=== PATIENT | female | born 1945 | race Caucasian/White ===

== ENCOUNTER 2017-07-09 13:18 | Inpatient (IN) ==
[2017-07-09 13:54] LABS: Bilirubin,Urine Negative (Negative); Blood,Urine Negative (Negative); Clarity,Urine Clear (Clear); Color,Urine Yellow (Yellow); Glucose,Urine (UA) Normal (Normal); Ketones,Urine Negative (Negative); Leukocyte Esterase,Urine Small (Negative); Nitrite,Urine Negative (Negative); Protein,Urine Negative (Neg-Trace); Specific Gravity,Urine 1.014 (1.010-1.025); Urobilinogen,Urine Normal (Normal)
[2017-07-09 13:56] LABS: Bacteria,Urine Many per hpf (None-Few); Hyaline Casts,Urine None Seen per lpf (None-Few); RBC,Urine 0-3 per hpf (0-3); Squamous Epithelial Cell,Urine Moderate per lpf (None-Few)
[2017-07-09 14:02] LABS: Basophils # 0.1 K/mcL (0.0-0.2); Basophils % 0.7 %; Eosinophils # 0.1 K/mcL (0.0-0.6); Eosinophils % 1.1 %; Hematocrit 44.1 % (35.3-44.9); Immature Granulocytes % 0.4 % (0-4); Lymphocytes % 21.6 %; Mean Corpuscular Hemoglobin 28.6 pg (28.0-33.3); Mean Corpuscular Volume 84.2 fL (83.0-100.0); Mean Platelet Volume 10.3 fL (9.4-12.4); Monocytes # 0.6 K/mcL (0.0-1.3); Monocytes % 6.5 %; Neutrophils # 6.4 K/mcL (1.6-8.9); Platelet Count 296 K/mcL (140-400); Red Blood Count 5.24 M/mcL (3.82-4.97); Red Cell Distribution Width 13.7 % (11.5-14.5); Segmented Neutrophils % 69.7 %
--- NOTE | 2017-07-09 14:02 | Emergency Department Note ---
Disposition Clinical Impression: Suicidal ideation Disposition: Admitted As Inpatient Condition: Good General Adult HPI - General Chief complaint: ED Psychiatric Symptoms Stated complaint: SI Time Seen by Provider: 07/09/17 13:32 Source: patient Limitations: no limitations Nursing Notes Reviewed: Yes Vital Signs Reviewed: Yes - History of Present Illness Pain Scale: 0 - Related Data Home Medications Medication Instructions Recorded Confirmed Diltiazem CD (24hr) [Cardizem CD] 240 mg PO DAILY 07/09/17 07/09/17 Lisinopril [Zestril] 10 mg PO DAILY 07/09/17 07/09/17 Triamterene/HCTZ 37.5/25mg 1 tab PO DAILY 07/09/17 07/09/17 [Dyazide] metFORMIN [Glucophage] 500 mg PO BID 07/09/17 07/09/17 Allergies Allergy/AdvReac Type Severity Reaction Status Date / Time ciprofloxacin [From Cipro] Allergy Anaphylaxis Verified 07/09/17 13:22 Past Medical History - Past Medical History Medical history: Reports: diabetes, hypertension Psychiatric history: Reports: depression, prior suicide attempt - Social History Smoking Status: Never smoker Alcohol use: Reports: none Drug use: Reports: none Physical Exam - General Limitations: no limitations General appearance: alert Course Vital Signs Temperature 98.3 F 07/09/17 13:19 Pulse Rate 86 07/09/17 13:19 Respiratory Rate 18 07/09/17 13:19 Blood Pressure 144/85 07/09/17 13:19 O2 Sat by Pulse Oximetry 97 07/09/17 13:19 Temperature 98.3 F 07/09/17 13:35 Pulse Rate 86 07/09/17 13:35 Respiratory Rate 18 07/09/17 13:35 Blood Pressure 144/85 07/09/17 13:35 O2 Sat by Pulse Oximetry 97 07/09/17 13:35 Oxygen Delivery Oxygen Delivery Room Air Medical Decision Making - MDM Narrative Medical decision making narrative: This documentation is done with the assistance of Dragon dictation. Despite efforts made to ensure accuracy, there may be inaccuracies in station baggage agent or spelling and typographical errors. Patient presents today very depressed flat effect feeling she might try to harm herself but does not have a plan. Set she has had depression in the past. Her primary care physician sent her to the emergency department. She is made a no AMA status, [address], labs are done for psychiatry and will have them evaluate once his labs are back. She is in agreement with this plan. 1500 hrs.: Spoke to [facility]A to evaluate the patient. Patient's labs are back. 1600 hrs.: 1A has finished their evaluation they are going to try to admit her here. 1610 hrs.: 1A excepts the patient for evaluation. Waiting on bed. - Lab Data Result diagrams: 07/09/17 13:53 07/09/17 13:53 Lab Results 07/09/17 07/09/17 07/09/17 Range/Units 13:36 13:36 13:53 WBC 9.2 (4.3-11.1) K/mcL RBC 5.24 H (3.82-4.97) M/mcL Hgb 15.0 (11.5-15.4) g/dL Hct 44.1 (35.3-44.9) % MCV 84.2 (83.0-100.0) fL MCH 28.6 (28.0-33.3) pg MCHC 34.0 (31.6-35.5) g/dL RDW 13.7 (11.5-14.5) % Plt Count 296 (140-400) K/mcL MPV 10.3 (9.4-12.4) fL Immature Gran % 0.4 (0-4) % Seg Neutrophils % 69.7 % Lymphocytes % 21.6 % Monocytes % 6.5 % Eosinophils % 1.1 % Basophils % 0.7 % Neutrophils # 6.4 (1.6-8.9) K/mcL Lymphocytes # 2.0 (0.6-4.6) K/mcL Monocytes # 0.6 (0.0-1.3) K/mcL Eosinophils # 0.1 (0.0-0.6) K/mcL Basophils # 0.1 (0.0-0.2) K/mcL Sodium (136-145) mEq/L Potassium (3.5-5.1) mEq/L Chloride (98-107) mEq/L Carbon Dioxide (23-29) mEq/L BUN (8-23) mg/dL Creatinine (0.60-1.20) mg/dL Est GFR ( Amer) (> 60) Est GFR (Non-Af Amer) (> 60) BUN/Creatinine Ratio (6-26) Glucose (70-105) mg/dL POC Glucose (70-99) mg/dL Calculated Osmolality (280-300) Calcium (8.6-10.3) mg/dL TSH (0.340-5.600) mcIU/mL Urine Color Yellow (Yellow) Urine Clarity Clear (Clear) Urine pH 7.0 (5.0-8.0) pH Units Ur Specific [place] 1.014 (1.010-1.025) Urine Protein Negative (Neg-Trace) mg/dL Urine Glucose (UA) Normal (Normal) mg/dL Urine Ketones Negative (Negative) mg/dL Urine Blood Negative (Negative) Urine Nitrite Negative (Negative) Urine Bilirubin Negative (Negative) Urine Urobilinogen Normal (Normal) mg/dL Ur Leukocyte Esterase Small H (Negative) Urine Microscopic RBC 0-3 (0-3) per hpf Urine Microscopic WBC 3-5 H (0-3) per hpf Ur Squamous Epith Cells Moderate H (None-Few) per lpf Urine Bacteria Many H (None-Few) per hpf Hyaline Casts None Seen (None-Few) per lpf Salicylates (15.0-30.0) mg/dL Urine Opiates Screen Negative (Mvxoxu=826) ng/mL Acetaminophen (10-20) mcg/mL Ur Barbiturates Screen Negative (Uyczgb=693) ng/mL Ur Phencyclidine Scrn Negative (Cutoff=25) ng/mL Ur Amphetamines Screen Negative (Uopnoz=3270) ng/mL U Benzodiazepines Scrn Negative (Rclhzk=620) ng/mL Urine Cocaine Screen Negative (Cutoff= 300) ng/mL U Marijuana (THC) Screen Negative (Cutoff = 50) ng/mL Ethyl Alcohol (Less than 10) mg/dL 07/09/17 07/09/17 Range/Units 13:53 15:25 WBC (4.3-11.1) K/mcL RBC (3.82-4.97) M/mcL Hgb (11.5-15.4) g/dL Hct (35.3-44.9) % MCV (83.0-100.0) fL MCH (28.0-33.3) pg MCHC (31.6-35.5) g/dL RDW (11.5-14.5) % Plt Count (140-400) K/mcL MPV (9.4-12.4) fL Immature Gran % (0-4) % Seg Neutrophils % % Lymphocytes % % Monocytes % % Eosinophils % % Basophils % % Neutrophils # (1.6-8.9) K/mcL Lymphocytes # (0.6-4.6) K/mcL Monocytes # (0.0-1.3) K/mcL Eosinophils # (0.0-0.6) K/mcL Basophils # (0.0-0.2) K/mcL Sodium 137 (136-145) mEq/L Potassium 3.8 (3.5-5.1) mEq/L Chloride 101 (98-107) mEq/L Carbon Dioxide 25 (23-29) mEq/L BUN 20 (8-23) mg/dL Creatinine 0.73 (0.60-1.20) mg/dL Est GFR ( Amer) > 60 (> 60) Est GFR (Non-Af Amer) > 60 (> 60) BUN/Creatinine Ratio 27 H (6-26) Glucose 120 H (70-105) mg/dL POC Glucose 103 H (70-99) mg/dL Calculated Osmolality 288 (280-300) Calcium 10.1 (8.6-10.3) mg/dL TSH 1.234 (0.340-5.600) mcIU/mL Urine Color (Yellow) Urine Clarity (Clear) Urine pH (5.0-8.0) pH Units Ur Specific [place] (1.010-1.025) Urine Protein (Neg-Trace) mg/dL Urine Glucose (UA) (Normal) mg/dL Urine Ketones (Negative) mg/dL Urine Blood (Negative) Urine Nitrite (Negative) Urine Bilirubin (Negative) Urine Urobilinogen (Normal) mg/dL Ur Leukocyte Esterase (Negative) Urine Microscopic RBC (0-3) per hpf Urine Microscopic WBC (0-3) per hpf Ur Squamous Epith Cells (None-Few) per lpf Urine Bacteria (None-Few) per hpf Hyaline Casts (None-Few) per lpf Salicylates < 2.5 L (15.0-30.0) mg/dL Urine Opiates Screen (Yrlyab=812) ng/mL Acetaminophen < 10 L (10-20) mcg/mL Ur Barbiturates Screen (Gqowfd=182) ng/mL Ur Phencyclidine Scrn (Cutoff=25) ng/mL Ur Amphetamines Screen (Whgstk=7583) ng/mL U Benzodiazepines Scrn (Lcckey=365) ng/mL Urine Cocaine Screen (Cutoff= 300) ng/mL U Marijuana (THC) Screen (Cutoff = 50) ng/mL Ethyl Alcohol < 10 (Less than 10) mg/dL Attestation Statement - Attestation Attestation: I examined this patient and my medical decision-making was reviewed with the Resident Physician. I agree with the documented findings, disposition and treatment plan as described except to the extent set forth below. Patient seen and evaluated by Dr. Bran and myself, I agree with his evaluation and treatment plan, supervised care the patient's stay.
[2017-07-09 14:04] LABS: Amphetamine Screen,Urine Negative ng/mL (Cutoff=1000); Barbiturate Screen,Urine Negative ng/mL (Cutoff=200); Benzodiazepines Screen,Urine Negative ng/mL (Cutoff=200); Cannabinoid Screen,Urine Negative ng/mL (Cutoff = 50); Cocaine Screen,Urine Negative ng/mL (Cutoff= 300); Opiate Screen,Urine Negative ng/mL (Cutoff=300); Phencyclidine Screen,Urine Negative ng/mL (Cutoff=25)
--- NOTE | 2017-07-09 14:10 | Emergency Department Note ---
Disposition Clinical Impression: Suicidal ideation Disposition: Admitted As Inpatient Condition: Good Referrals: NONE,PCP [Primary Care Provider] - Forms: ED Satisfaction Letter Time of Disposition: 16:18 Psych HPI - General Chief Complaint: ED Psychiatric Symptoms Stated Complaint: SI Time Seen by Provider: 07/09/17 13:32 Source: patient Mode of arrival: ambulatory Limitations: no limitations Nursing Notes Reviewed: Yes Vital Signs Reviewed: Yes - History of Present Illness HPI Narrative: Patient presents to the ED with suicidal ideation. SHe states that she has been depressed for the last few weeks. She does have a plan to cut her wrists and let herself "bleed out". Denies any pain currently. Does currently feel suicidal - Related Data Allergies Allergy/AdvReac Type Severity Reaction Status Date / Time ciprofloxacin [From Cipro] Allergy Anaphylaxis Verified 07/09/17 13:22 Review of Systems: As reviewed in the HPI. All other systems reviewed are negative or normal. Past Medical History - Past Medical History Attestation: Yes The following information was validated with the patient. Source: patient Medical history: Reports: diabetes, hypertension Psychiatric history: Reports: depression, prior suicide attempt - Social History Smoking Status: Never smoker Alcohol use: Reports: none Drug use: Reports: none Physical Exam - General Limitations: no limitations General appearance: alert, in no apparent distress - Head Head exam: atraumatic, normocephalic, normal inspection - Eye Eye exam: Present: normal appearance, PERRL, EOMI - ENT ENT exam: normal exam, normal oropharynx, mucous membranes moist - Neck Neck exam: Present: normal inspection, full ROM, trachea midline - Chest Chest inspection: Present: normal inspection, symmetric chest wall rise - Respiratory Respiratory exam: Present: normal lung sounds bilaterally - Cardiovascular Cardiovascular exam: Present: regular rate, normal rhythm, normal heart sounds - Abdominal Exam Abdominal exam: Present: soft, Non-Tender. Absent: tenderness, distention, guarding, rebound, rigidity - Extremities Exam Extremities exam: Present: normal inspection, full ROM. Absent: tenderness, pedal edema - Neurological Exam Neurological exam: Present: alert, oriented X3 - Psychiatric Psychiatric exam: Present: depressed, flat affect - Skin Skin exam: Present: warm, dry, intact, normal color Course Course Narrative: 1A clearance with likely admission - Reevaluation(s) Reevaluation #1: 1A to admit Vital Signs Temperature 98.3 F 07/09/17 13:19 Pulse Rate 86 07/09/17 13:19 Respiratory Rate 18 07/09/17 13:19 Blood Pressure 144/85 07/09/17 13:19 O2 Sat by Pulse Oximetry 97 07/09/17 13:19 Temperature 98.3 F 07/09/17 13:35 Pulse Rate 86 07/09/17 13:35 Respiratory Rate 18 07/09/17 13:35 Blood Pressure 144/85 07/09/17 13:35 O2 Sat by Pulse Oximetry 97 07/09/17 13:35 Oxygen Delivery Oxygen Delivery Room Air Psych - Lab Data Result diagrams: 07/09/17 13:53 07/09/17 13:53 Lab Results 07/09/17 07/09/17 07/09/17 Range/Units 13:36 13:36 13:53 WBC 9.2 (4.3-11.1) K/mcL RBC 5.24 H (3.82-4.97) M/mcL Hgb 15.0 (11.5-15.4) g/dL Hct 44.1 (35.3-44.9) % MCV 84.2 (83.0-100.0) fL MCH 28.6 (28.0-33.3) pg MCHC 34.0 (31.6-35.5) g/dL RDW 13.7 (11.5-14.5) % Plt Count 296 (140-400) K/mcL MPV 10.3 (9.4-12.4) fL Immature Gran % 0.4 (0-4) % Seg Neutrophils % 69.7 % Lymphocytes % 21.6 % Monocytes % 6.5 % Eosinophils % 1.1 % Basophils % 0.7 % Neutrophils # 6.4 (1.6-8.9) K/mcL Lymphocytes # 2.0 (0.6-4.6) K/mcL Monocytes # 0.6 (0.0-1.3) K/mcL Eosinophils # 0.1 (0.0-0.6) K/mcL Basophils # 0.1 (0.0-0.2) K/mcL Sodium (136-145) mEq/L Potassium (3.5-5.1) mEq/L Chloride (98-107) mEq/L Carbon Dioxide (23-29) mEq/L BUN (8-23) mg/dL Creatinine (0.60-1.20) mg/dL Est GFR ( Amer) (> 60) Est GFR (Non-Af Amer) (> 60) BUN/Creatinine Ratio (6-26) Glucose (70-105) mg/dL Calculated Osmolality (280-300) Calcium (8.6-10.3) mg/dL TSH (0.340-5.600) mcIU/mL Urine Color Yellow (Yellow) Urine Clarity Clear (Clear) Urine pH 7.0 (5.0-8.0) pH Units Ur Specific [place] 1.014 (1.010-1.025) Urine Protein Negative (Neg-Trace) mg/dL Urine Glucose (UA) Normal (Normal) mg/dL Urine Ketones Negative (Negative) mg/dL Urine Blood Negative (Negative) Urine Nitrite Negative (Negative) Urine Bilirubin Negative (Negative) Urine Urobilinogen Normal (Normal) mg/dL Ur Leukocyte Esterase Small H (Negative) Urine Microscopic RBC 0-3 (0-3) per hpf Urine Microscopic WBC 3-5 H (0-3) per hpf Ur Squamous Epith Cells Moderate H (None-Few) per lpf Urine Bacteria Many H (None-Few) per hpf Hyaline Casts None Seen (None-Few) per lpf Salicylates (15.0-30.0) mg/dL Urine Opiates Screen Negative (Lejfgg=736) ng/mL Acetaminophen (10-20) mcg/mL Ur Barbiturates Screen Negative (Kopbul=694) ng/mL Ur Phencyclidine Scrn Negative (Cutoff=25) ng/mL Ur Amphetamines Screen Negative (Hiasef=9700) ng/mL U Benzodiazepines Scrn Negative (Weovxs=186) ng/mL Urine Cocaine Screen Negative (Cutoff= 300) ng/mL U Marijuana (THC) Screen Negative (Cutoff = 50) ng/mL Ethyl Alcohol (Less than 10) mg/dL 07/09/17 Range/Units 13:53 WBC (4.3-11.1) K/mcL RBC (3.82-4.97) M/mcL Hgb (11.5-15.4) g/dL Hct (35.3-44.9) % MCV (83.0-100.0) fL MCH (28.0-33.3) pg MCHC (31.6-35.5) g/dL RDW (11.5-14.5) % Plt Count (140-400) K/mcL MPV (9.4-12.4) fL Immature Gran % (0-4) % Seg Neutrophils % % Lymphocytes % % Monocytes % % Eosinophils % % Basophils % % Neutrophils # (1.6-8.9) K/mcL Lymphocytes # (0.6-4.6) K/mcL Monocytes # (0.0-1.3) K/mcL Eosinophils # (0.0-0.6) K/mcL Basophils # (0.0-0.2) K/mcL Sodium 137 (136-145) mEq/L Potassium 3.8 (3.5-5.1) mEq/L Chloride 101 (98-107) mEq/L Carbon Dioxide 25 (23-29) mEq/L BUN 20 (8-23) mg/dL Creatinine 0.73 (0.60-1.20) mg/dL Est GFR ( Amer) > 60 (> 60) Est GFR (Non-Af Amer) > 60 (> 60) BUN/Creatinine Ratio 27 H (6-26) Glucose 120 H (70-105) mg/dL Calculated Osmolality 288 (280-300) Calcium 10.1 (8.6-10.3) mg/dL TSH 1.234 (0.340-5.600) mcIU/mL Urine Color (Yellow) Urine Clarity (Clear) Urine pH (5.0-8.0) pH Units Ur Specific [place] (1.010-1.025) Urine Protein (Neg-Trace) mg/dL Urine Glucose (UA) (Normal) mg/dL Urine Ketones (Negative) mg/dL Urine Blood (Negative) Urine Nitrite (Negative) Urine Bilirubin (Negative) Urine Urobilinogen (Normal) mg/dL Ur Leukocyte Esterase (Negative) Urine Microscopic RBC (0-3) per hpf Urine Microscopic WBC (0-3) per hpf Ur Squamous Epith Cells (None-Few) per lpf Urine Bacteria (None-Few) per hpf Hyaline Casts (None-Few) per lpf Salicylates < 2.5 L (15.0-30.0) mg/dL Urine Opiates Screen (Sfwizq=660) ng/mL Acetaminophen < 10 L (10-20) mcg/mL Ur Barbiturates Screen (Ocwfxf=460) ng/mL Ur Phencyclidine Scrn (Cutoff=25) ng/mL Ur Amphetamines Screen (Fcphrt=7685) ng/mL U Benzodiazepines Scrn (Hxifca=659) ng/mL Urine Cocaine Screen (Cutoff= 300) ng/mL U Marijuana (THC) Screen (Cutoff = 50) ng/mL Ethyl Alcohol < 10 (Less than 10) mg/dL Psychiatric Medical Clearance - Medical Clearance Checklist Medical History: No Social History Section defined Current Vitals: Last Vital Signs Temp 98.3 F 07/09/17 13:35 Pulse 86 07/09/17 13:35 Resp 18 07/09/17 13:35 BP 144/85 07/09/17 13:35 Pulse Ox 97 07/09/17 13:35 Psychiatric Lab Panel: Drug Levels and Toxicity 07/09/17 07/09/17 13:36 13:53 Urine Opiates Screen Negative Acetaminophen < 10 L Ur Barbiturates Screen Negative Ur Phencyclidine Scrn Negative Ur Amphetamines Screen Negative U Benzodiazepines Scrn Negative Urine Cocaine Screen Negative U Marijuana (THC) Screen Negative Ethyl Alcohol < 10 Abnormal Labs: Abnormal lab results RBC 5.24 M/mcL (3.82-4.97) H 07/09/17 13:53 BUN/Creatinine Ratio 27 (6-26) H 07/09/17 13:53 Glucose 120 mg/dL (70-105) H 07/09/17 13:53 Ur Leukocyte Esterase Small (Negative) H 07/09/17 13:36 Urine Microscopic WBC 3-5 per hpf (0-3) H 07/09/17 13:36 Ur Squamous Epith Cells Moderate per lpf (None-Few) H 07/09/17 13:36 Urine Bacteria Many per hpf (None-Few) H 07/09/17 13:36 Salicylates < 2.5 mg/dL (15.0-30.0) L 07/09/17 13:53 Acetaminophen < 10 mcg/mL (10-20) L 07/09/17 13:53 Statement of Medical Clearance: I have evaluated the patient, reviewed diagnostic information, and certify that the patient's medical condition is sufficiently stable that transfer to the psychiatric unit does not pose a significant risk of deterioration.
[2017-07-09 14:42] LABS: Thyroid Stimulating Hormone 1.234 mcIU/mL (0.340-5.600)
[2017-07-09 14:43] LABS: BUN/Creatinine Ratio 27 (6-26); Blood Urea Nitrogen 20 mg/dL (8-23); Calcium 10.1 mg/dL (8.6-10.3); Carbon Dioxide 25 mEq/L (23-29); Chloride 101 mEq/L (98-107); Glucose 120 mg/dL (70-105); Osmolality,Calculated 288 (280-300); Potassium 3.8 mEq/L (3.5-5.1); Sodium 137 mEq/L (136-145); eGFR For African Americans > 60 (> 60); eGFR For Non-African Americans > 60 (> 60)
[2017-07-09 15:03] LABS: Acetaminophen < 10 mcg/mL (10-20)
[2017-07-09 15:06] LABS: Ethanol < 10 mg/dL (Less than 10); Salicylate < 2.5 mg/dL (15.0-30.0)
[2017-07-09] MEDS ORDERED: traZODone 50 MG TABLET PO PRN (17:31)
[2017-07-09] MEDS ORDERED: *HR* LORazepam 2 MG/ML VIAL IM PRN (17:31)
[2017-07-09] MEDS ORDERED: Haloperidol Lactate 5 MG/ML VIAL IM PRN (17:31)
[2017-07-09] MEDS ORDERED: *HR* LORazepam 1 MG TABLET PO PRN (17:31)
[2017-07-09] MEDS ORDERED: Mag Hydrox/Al Hydrox/Simeth 30 ML UDC PO PRN (17:31)
[2017-07-09] MEDS ORDERED: MOM Conc 10 ML UD.LIQ PO PRN (17:31)
[2017-07-09] MEDS: *HR* Metformin 500 MG TABLET PO SCH (21:16)
[2017-07-10] MEDS: *HR* Metformin 500 MG TABLET PO SCH ×2 (08:42→21:04)
[2017-07-10] MEDS: Diltiazem CD (24hr) 240 MG CAPSULE PO SCH (08:42)
--- NOTE | 2017-07-10 11:25 | Psychiatry History & Physical ---
Date of Encounter: 07/10/17 Time of Encounter: 10:50 History of Present Illness Patient Stated Chief Complaint: i am very depress Medicare Admission Attestation: For traditional Medicare patients the provided hospital inpatient services are reasonable and necessary and in the case of services not specified as inpatient -only under 42 CFR 419.22 (n), that they are appropriately provided as inpatient services in accordance 42 CFR 412.3. For Critical Access Hospital the patient may reasonably be expected to be discharged or transferred to a hospital within 96 hours after admission to the Critical Access Hospital. Admitted From: Emergency Dept Plans for Post Hospital Care: Home History of Present Illness: Ms. Sánchez is a 71 year old female evaluated today ,Patient presents to the ED with suicidal ideation. SHe states that she has been depressed for the last few weeks. She does have a plan to cut her wrists and let herself "bleed out". Denies any pain currently. Does currently feel suicidal. Patient states her 27 year old grandson lives with her ,, has started getting depress for last 4-5 weeks , no new stress and no change I do not know why its like it just came and boom it hit me, having thoughts of hurting myself by cutting my self and that scared me and I came here. 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 She has 5 month old grandson and she was taking care of him 6 days a week and last week she told her son she can not as she is unable to. She is very dysphoric at present and down and psychomotor retardation , she looks younger than her age and pleasant , cooperative. still has suicidal thoughts not as strong as yesterday but still has, denies homicidal ideation , she has generalized anxiety and no panic attacks , she worries a lot and sleep increased was in bed for 13 hrs a day, and overeating which she knows bad for her diabetes ,positive anhedonia and psychomotor retardation. Medical h/o HTN,DM,Mitral valve prolapse , no chest pain or any other issues at present. Family h/o none pATIENT AT PRESENT is significantly depressed and suicidal , plan to cut self , needs inpatient for safety and stabilization for her depression , at present danger to self and is willing for treatment. Will start antidepressant Lexapro 10 mg am and continue close monitoring. will start diabetic diet and monitor her blood sugar. Past Med Surg Social Fam HX - Past Medical History Medical history: diabetes, hypertension - Past Psychiatric History Psychiatric history: Reports: anxiety, depression, previous psychiatric hospitalization Family psychiatric history: No Family History of Suicide: None - Past Surgical History Surgical History: cholecystectomy - Social History Smoking Status: Never smoker Alcohol use: none Drug use: none Occupational status: retired Current living situation: Home, With Family Activity Level: Independent ambulation Recent Out of Country Travel Within the Last 8 Weeks: No Exposure or Possible Exposure to Illness During Travel: No Medications & Allergies Diltiazem CD (24hr) [Cardizem CD] 240 mg PO DAILY 07/09/17 [History] Lisinopril [Zestril] 10 mg PO DAILY 07/09/17 [History] Triamterene/HCTZ 37.5/25mg [Dyazide] 1 tab PO DAILY 07/09/17 [History] metFORMIN [Glucophage] 500 mg PO BID 07/09/17 [History] 3 Allergy/AdvReac Type Severity Reaction Status Date / Time ciprofloxacin [From Cipro] Allergy Anaphylaxis Verified 07/09/17 13:22 Review of Systems Constitutional: Denies: fever, chills, weakness, weight change Eyes: Denies: eye pain, vision change Ears, Nose, Throat: Denies: ear pain, throat pain, dental pain, hearing loss, congestion Cardiovascular: Denies: chest pain, palpitations, dyspnea on exertion Respiratory: Denies: cough, dyspnea, wheezes Gastrointestinal: Denies: abdominal pain, nausea, vomiting, diarrhea, constipation Genitourinary female: Denies: urgency, dysuria, frequency, abnormal menses, dyspareunia Musculoskeletal: Denies: joint swelling, joint pain Integumentary: Denies: rash, lesions, pruritus Neurological: Denies: headache, weakness, numbness, memory loss Psychiatric: Reports: depression, anxiety, abnormal sleep pattern, suicidal ideation, change in appetite, hopelessness Endocrine: Denies: fatigue, heat or cold intolerance Hematologic/Lymphatic: Denies: easy bruising, lymphadenopathy Allergic/Immunologic: Denies: urticaria, itchy eyes Exam - HEENT Head exam IM: Present: atraumatic Eye exam IM: Present: EOMI, normal appearance, PERRL ENT exam IM: Present: normal exam - Neurological Neurological exam: Present: CN II-XII intact - Respiratory Respiratory exam IM: Present: CTAB - GI/Abdominal GI/Abdominal exam IM: Present: normal bowel sounds, soft. Absent: tenderness - Extremities Extremities exam IM: Present: full ROM - Skin Skin exam IM: Present: abrasion - Constitutional Vitals: Temp Pulse Resp BP Pulse Ox 98.2 F 76 16 142/87 97 07/10/17 08:50 07/10/17 08:50 07/10/17 08:50 07/10/17 08:50 07/09/17 13:35 General appearance: age & developmentally appropriate, well-groomed, well- nourished - Musculoskeletal Gait: slow Station: relaxed Strength & Tone: normal for patient - Psychiatric Patient Orientation: Yes Person, Yes Time, Yes Place Level of alertness: Alert Behavior: cooperative, anxious, withdrawn Psychomotor activity: Slowed Mood Description: Depressed, Anxious Affect description: dysphoric Speech Volume: Soft/Quiet Speech pattern: slowed Language & Vocabulary: consistent with education Thought Process: Linear, Goal Oriented Thought Content: Yes Suicidal ideation, Yes Guilt Perceptual Disturbances: No Auditory hallucinations, No Visual hallucinations Attention Span Ability: Capable of Focused Attention Memory Description: Grossly Intact Patient Reliability: Reliable Historian Intelligence Estimate: Average Judgment: Limited Insight: Partial Results - Labs Labs: Laboratory Last Values WBC 9.2 K/mcL (4.3-11.1) 07/09/17 13:53 RBC 5.24 M/mcL (3.82-4.97) H 07/09/17 13:53 Hgb 15.0 g/dL (11.5-15.4) 07/09/17 13:53 Hct 44.1 % (35.3-44.9) 07/09/17 13:53 MCV 84.2 fL (83.0-100.0) 07/09/17 13:53 MCH 28.6 pg (28.0-33.3) 07/09/17 13:53 MCHC 34.0 g/dL (31.6-35.5) 07/09/17 13:53 RDW 13.7 % (11.5-14.5) 07/09/17 13:53 Plt Count 296 K/mcL (140-400) 07/09/17 13:53 MPV 10.3 fL (9.4-12.4) 07/09/17 13:53 Immature Gran % 0.4 % (0-4) 07/09/17 13:53 Seg Neutrophils % 69.7 % 07/09/17 13:53 Lymphocytes % 21.6 % 07/09/17 13:53 Monocytes % 6.5 % 07/09/17 13:53 Eosinophils % 1.1 % 07/09/17 13:53 Basophils % 0.7 % 07/09/17 13:53 Neutrophils # 6.4 K/mcL (1.6-8.9) 07/09/17 13:53 Lymphocytes # 2.0 K/mcL (0.6-4.6) 07/09/17 13:53 Monocytes # 0.6 K/mcL (0.0-1.3) 07/09/17 13:53 Eosinophils # 0.1 K/mcL (0.0-0.6) 07/09/17 13:53 Basophils # 0.1 K/mcL (0.0-0.2) 07/09/17 13:53 Sodium 137 mEq/L (136-145) 07/09/17 13:53 Potassium 3.8 mEq/L (3.5-5.1) 07/09/17 13:53 Chloride 101 mEq/L (98-107) 07/09/17 13:53 Carbon Dioxide 25 mEq/L (23-29) 07/09/17 13:53 BUN 20 mg/dL (8-23) 07/09/17 13:53 Creatinine 0.73 mg/dL (0.60-1.20) 07/09/17 13:53 Est GFR ( Amer) > 60 (> 60) 07/09/17 13:53 Est GFR (Non-Af Amer) > 60 (> 60) 07/09/17 13:53 BUN/Creatinine Ratio 27 (6-26) H 07/09/17 13:53 Glucose 120 mg/dL (70-105) H 07/09/17 13:53 POC Glucose 203 mg/dL (70-99) H 07/10/17 08:55 Calculated Osmolality 288 (280-300) 07/09/17 13:53 Calcium 10.1 mg/dL (8.6-10.3) 07/09/17 13:53 TSH 1.234 mcIU/mL (0.340-5.600) 07/09/17 13:53 Urine Color Yellow (Yellow) 07/09/17 13:36 Urine Clarity Clear (Clear) 07/09/17 13:36 Urine pH 7.0 pH Units (5.0-8.0) 07/09/17 13:36 Ur Specific [place] 1.014 (1.010-1.025) 07/09/17 13:36 Urine Protein Negative mg/dL (Neg-Trace) 07/09/17 13:36 Urine Glucose (UA) Normal mg/dL (Normal) 07/09/17 13:36 Urine Ketones Negative mg/dL (Negative) 07/09/17 13:36 Urine Blood Negative (Negative) 07/09/17 13:36 Urine Nitrite Negative (Negative) 07/09/17 13:36 Urine Bilirubin Negative (Negative) 07/09/17 13:36 Urine Urobilinogen Normal mg/dL (Normal) 07/09/17 13:36 Ur Leukocyte Esterase Small (Negative) H 07/09/17 13:36 Urine Microscopic RBC 0-3 per hpf (0-3) 07/09/17 13:36 Urine Microscopic WBC 3-5 per hpf (0-3) H 07/09/17 13:36 Ur Squamous Epith Cells Moderate per lpf (None-Few) H 07/09/17 13:36 Urine Bacteria Many per hpf (None-Few) H 07/09/17 13:36 Hyaline Casts None Seen per lpf (None-Few) 07/09/17 13:36 Salicylates < 2.5 mg/dL (15.0-30.0) L 07/09/17 13:53 Urine Opiates Screen Negative ng/mL (Pfqxvc=531) 07/09/17 13:36 Acetaminophen < 10 mcg/mL (10-20) L 07/09/17 13:53 Ur Barbiturates Screen Negative ng/mL (Xjhttz=458) 07/09/17 13:36 Ur Phencyclidine Scrn Negative ng/mL (Cutoff=25) 07/09/17 13:36 Ur Amphetamines Screen Negative ng/mL (Jbfxxo=9559) 07/09/17 13:36 U Benzodiazepines Scrn Negative ng/mL (Vaaaui=128) 07/09/17 13:36 Urine Cocaine Screen Negative ng/mL (Cutoff= 300) 07/09/17 13:36 U Marijuana (THC) Screen Negative ng/mL (Cutoff = 50) 07/09/17 13:36 Ethyl Alcohol < 10 mg/dL (Less than 10) 07/09/17 13:53 Assessment and Plan (1) Suicidal ideation Current visit: Yes Status: Acute (2) Major depressive disorder, recurrent Current visit: Yes Status: Acute Plan: Admit inpatient for safety and stabilization, Close observation, Suicide Precautions per unit protocol, Encourage participation in unit milieu, Monitor sleep, Monitor appetite, Family/Supportive other meeting Risks, benefits, side effects, alternatives discussed w/pt: Yes Patient agreeable to treatment : Yes Plans for Post Hospital Care: at Home Estimated Length of Stay (Days): 5 Qualifiers: Active/Remission status: currently active Major depression episode severity : severe Psychotic features: without psychotic features Qualified Code(s): F33.2 - Major depressive disorder, recurrent severe without psychotic features
[2017-07-11] MEDS: Diltiazem CD (24hr) 240 MG CAPSULE PO SCH (08:39)
[2017-07-11] MEDS: *HR* Metformin 500 MG TABLET PO SCH ×2 (08:40→21:33)
--- NOTE | 2017-07-11 11:24 | Psychiatry Progress Note ---
Date of Encounter: 07/11/17 Time of Encounter: 11:10 Subjective Interval history: Patient seen today , case d/w treatment team. She is still having dysphoric affect and psychomotor retardation, depress and un motivated, she slept for 6 hrs and feels drowsy with medication. she denies any other side effect. will decrease trazodone to 25 mg po hs prn. suicidal thoughts are still there but not as intense. states has not called her kids because does not want to face that and feels guilty. Review of Systems Psychiatric: Reports: depression, anxiety, abnormal sleep pattern, suicidal ideation, change in appetite, hopelessness Results - Vital Signs Vital Signs: Temp Pulse Resp BP Pulse Ox 97.7 F 69 16 141/75 97 07/11/17 09:00 07/11/17 09:00 07/11/17 09:00 07/11/17 09:00 07/09/17 13:35 - Labs Labs: Laboratory Results - last 24 hr 07/10/17 07/11/17 20:47 07:49 POC Glucose 122 H 103 H Assessment and Plan (1) Suicidal ideation Current visit: Yes Status: Acute Plan: Continue hospitalization, Close observation, Suicide Precautions per unit protocol, Encourage participation in unit milieu, Group Therapy, Monitor sleep, Monitor appetite, Secure weapons, Family/Supportive other meeting Risks, benefits, side effects, alternatives discussed w/pt: Yes Patient agreeable to treatment: Yes (2) Major depressive disorder, recurrent Current visit: Yes Status: Acute Risks, benefits, side effects, alternatives discussed w/pt: Yes Patient agreeable to treatment: Yes Qualifiers: Active/Remission status: currently active Major depression episode severity : severe Psychotic features: without psychotic features Qualified Code(s): F33.2 - Major depressive disorder, recurrent severe without psychotic features Consult Discharge Plan - Plan Referrals: Cricket Duckworth, PhD [Outside] (The above appointment is with Cricket Duckworth for outpatient mental health counseling services.) Evonne Colon CONTAMINATION CONSULTANT [Advanced Practice Nurse] - 07/18/17 10:00 am (The above appointment is with Evonne Colon for primary health care and medication management services. Please arrive 10 minutes early to complete the check-in process. Please also bring your insurance card (or [facility]), photo ID , and all medications in their original bottles to this appointment. If you are unable to keep this appointment, 24 hour business notice of cancellation is expected. The above appointment(s) reflects first availability. You may contact the office regularly to check for cancellations that may allow you to be seen sooner.) Psychiatry Exam - Constitutional Vitals: Temp Pulse Resp BP Pulse Ox 97.7 F 69 16 141/75 97 07/11/17 09:00 07/11/17 09:00 07/11/17 09:00 07/11/17 09:00 07/09/17 13:35 General appearance: age & developmentally appropriate, well-groomed, well- nourished - Musculoskeletal Gait: slow Station: relaxed Strength & Tone: normal for patient - Psychiatric Patient Orientation: Yes Person, Yes Time, Yes Place Level of alertness: Alert Behavior: cooperative, withdrawn Psychomotor activity: Slowed Eye Contact: Maintains Eye Contact Mood Description: Depressed, Anxious Affect description: dysphoric Speech Volume: Soft/Quiet Speech pattern: coherent, slowed Language & Vocabulary: consistent with education Thought Process: Linear, Goal Oriented Thought Content: Yes Suicidal ideation, Yes Guilt Perceptual Disturbances: No Auditory hallucinations, No Visual hallucinations Attention Span Ability: Capable of Focused Attention Memory Description: Grossly Intact Patient Reliability: Reliable Historian Fund of knowledge: Yes abstraction ability, Yes aware of current events Intelligence Estimate: Average Judgment: Limited Insight: Partial
[2017-07-11] MEDS ORDERED: traZODone 50 MG TABLET PO PRN (11:29)
[2017-07-12] MEDS: *HR* Metformin 500 MG TABLET PO SCH ×2 (08:32→20:29)
[2017-07-12] MEDS: Diltiazem CD (24hr) 240 MG CAPSULE PO SCH (08:32)
--- NOTE | 2017-07-12 11:08 | Psychiatry Progress Note ---
Date of Encounter: 07/12/17 Time of Encounter: 10:40 Subjective Interval history: Patient seen today , case d/w staff . She stated I am here , states did not take medicine for sleep and slept till 3 am , she is still depress and dysphoric , tearful at times and suicidal thoughts present but not as often , at least now its not all the time as per her. she denies any side effects. appetite is better now, is participating in groups but remains depress. Review of Systems Psychiatric: Reports: depression, anxiety, abnormal sleep pattern, suicidal ideation, change in appetite, hopelessness Results - Vital Signs Vital Signs: Temp Pulse Resp BP Pulse Ox 98.4 F 71 20 123/78 97 07/12/17 08:39 07/12/17 08:39 07/12/17 08:39 07/12/17 08:39 07/09/17 13:35 - Labs Labs: Laboratory Results - last 24 hr 07/11/17 07/12/17 20:46 08:20 POC Glucose 106 H 162 H Assessment and Plan (1) Suicidal ideation Current visit: Yes Status: Acute Plan: Continue hospitalization, Close observation, Suicide Precautions per unit protocol, Encourage participation in unit milieu, Group Therapy, Monitor sleep, Monitor appetite, Family/Supportive other meeting Risks, benefits, side effects, alternatives discussed w/pt: Yes Patient agreeable to treatment: Yes (2) Major depressive disorder, recurrent Current visit: Yes Status: Acute Plan: Continue hospitalization, Close observation, Suicide Precautions per unit protocol, Encourage participation in unit milieu, Group Therapy, Monitor sleep, Monitor appetite, Family/Supportive other meeting Risks, benefits, side effects, alternatives discussed w/pt: Yes Patient agreeable to treatment: Yes Qualifiers: Active/Remission status: currently active Major depression episode severity : severe Psychotic features: without psychotic features Qualified Code(s): F33.2 - Major depressive disorder, recurrent severe without psychotic features Consult Discharge Plan - Plan Referrals: Cricket Duckworth, PhD [Outside] (The above appointment is with Cricket Duckworth for outpatient mental health counseling services.) Evonne Colon, STUDENT SUPPORT SERVICES DIRECTOR [Advanced Practice Nurse] - 07/18/17 10:00 am (The above appointment is with Evonne Colon for primary health care and medication management services. Please arrive 10 minutes early to complete the check-in process. Please also bring your insurance card (or [facility] award letter), photo ID , and all medications in their original bottles to this appointment. If you are unable to keep this appointment, 24 hour business notice of cancellation is expected. The above appointment(s) reflects first availability. You may contact the office regularly to check for cancellations that may allow you to be seen sooner.) Psychiatry Exam - Constitutional Vitals: Temp Pulse Resp BP Pulse Ox 98.4 F 71 20 123/78 97 07/12/17 08:39 07/12/17 08:39 07/12/17 08:39 07/12/17 08:39 07/09/17 13:35 General appearance: age & developmentally appropriate, well-groomed, well- nourished - Musculoskeletal Gait: slow Station: relaxed Strength & Tone: normal for patient - Psychiatric Patient Orientation: Yes Person, Yes Time, Yes Place Level of alertness: Alert Behavior: cooperative, withdrawn Psychomotor activity: Slowed Eye Contact: Maintains Eye Contact Mood Description: Depressed, Anxious Affect description: tearful, dysphoric Speech Volume: Soft/Quiet Speech pattern: slowed Language & Vocabulary: consistent with education Thought Process: Linear, Goal Oriented Thought Content: Yes Suicidal ideation, Yes Guilt Perceptual Disturbances: No Auditory hallucinations, No Visual hallucinations Attention Span Ability: Capable of Focused Attention Memory Description: Grossly Intact Patient Reliability: Reliable Historian Fund of knowledge: Yes abstraction ability, Yes aware of current events Intelligence Estimate: Average Judgment: Limited Insight: Full
[2017-07-13] MEDS: Diltiazem CD (24hr) 240 MG CAPSULE PO SCH (08:34)
[2017-07-13] MEDS: *HR* Metformin 500 MG TABLET PO SCH ×2 (08:34→20:36)
--- NOTE | 2017-07-13 10:23 | Psychiatry Progress Note ---
Date of Encounter: 07/13/17 Time of Encounter: 10:00 Subjective Interval history: Patient seen today, case d/w staff. She is not good today feeling sad and upset as her grand daughter is in labor here at [place] and she can not go there. she is depress and anxious and has psychomotor retardation , she is tearful at times and remains having suicidal thoughts but now fleeting, infact today i was aggravated at my self why i am like this. 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 She has not talked to any of her family since she is here, states i feel sort of ashamed and i feel like i have let them down. continue stabilization as still depress and suicidal. Review of Systems Psychiatric: Reports: depression, anxiety, abnormal sleep pattern, suicidal ideation, change in appetite, hopelessness Results - Vital Signs Vital Signs: Temp Pulse Resp BP Pulse Ox 98.2 F 71 18 138/84 97 07/13/17 07:56 07/13/17 07:56 07/13/17 07:56 07/13/17 07:56 07/09/17 13:35 - Labs Labs: Laboratory Results - last 24 hr 07/12/17 07/13/17 20:30 07:51 POC Glucose 144 H 118 H Assessment and Plan (1) Suicidal ideation Current visit: Yes Status: Acute Plan: Continue hospitalization, Close observation, Suicide Precautions per unit protocol, Encourage participation in unit milieu, Group Therapy, Monitor sleep, Monitor appetite, Family/Supportive other meeting Risks, benefits, side effects, alternatives discussed w/pt: Yes Patient agreeable to treatment: Yes (2) Major depressive disorder, recurrent Current visit: Yes Status: Acute Plan: Continue hospitalization, Close observation, Suicide Precautions per unit protocol, Encourage participation in unit milieu, Group Therapy, Monitor sleep, Monitor appetite, Secure weapons, Family/Supportive other meeting Risks, benefits, side effects, alternatives discussed w/pt: Yes Patient agreeable to treatment: Yes Qualifiers: Active/Remission status: currently active Major depression episode severity : severe Psychotic features: without psychotic features Qualified Code(s): F33.2 - Major depressive disorder, recurrent severe without psychotic features Consult Discharge Plan - Plan Referrals: Cricket Duckworth, PhD [Outside] (The above appointment is with Cricket Duckworth for outpatient mental health counseling services.) Evonne Colon, CARINA [Advanced Practice Nurse] - 07/18/17 10:00 am (The above appointment is with Evonne Colon for primary health care and medication management services. Please arrive 10 minutes early to complete the check-in process. Please also bring your insurance card (or [facility] award letter), photo ID , and all medications in their original bottles to this appointment. If you are unable to keep this appointment, 24 hour business notice of cancellation is expected. The above appointment(s) reflects first availability. You may contact the office regularly to check for cancellations that may allow you to be seen sooner.) Psychiatry Exam - Constitutional Vitals: Temp Pulse Resp BP Pulse Ox 98.2 F 71 18 138/84 97 07/13/17 07:56 07/13/17 07:56 07/13/17 07:56 07/13/17 07:56 07/09/17 13:35 General appearance: age & developmentally appropriate, well-groomed, well- nourished - Musculoskeletal Gait: slow Station: other Strength & Tone: normal for patient - Psychiatric Patient Orientation: Yes Person, Yes Time, Yes Place Level of alertness: Alert Behavior: cooperative, anxious, withdrawn Psychomotor activity: Slowed Eye Contact: Maintains Eye Contact Mood Description: Depressed, Anxious Affect description: congruent with mood, dysphoric Speech Volume: Soft/Quiet Speech pattern: coherent, slowed Language & Vocabulary: consistent with education Thought Process: Intact Thought Content: Yes Suicidal ideation, Yes Guilt Perceptual Disturbances: No Auditory hallucinations, No Visual hallucinations Attention Span Ability: Capable of Focused Attention Memory Description: Grossly Intact Patient Reliability: Reliable Historian Fund of knowledge: Yes abstraction ability, Yes aware of current events Intelligence Estimate: Average Judgment: Limited Insight: Partial
[2017-07-14] MEDS: Diltiazem CD (24hr) 240 MG CAPSULE PO SCH (08:38)
[2017-07-14] MEDS: *HR* Metformin 500 MG TABLET PO SCH ×2 (08:38→20:20)
--- NOTE | 2017-07-14 12:00 | Psychiatry Progress Note ---
Date of Encounter: 07/14/17 Time of Encounter: 09:40 Subjective Interval history: Jossie is a 71-year-old female with a history of depression who was admitted with severe depression and thoughts of wanting to hurt herself. Patient's case was reviewed today in treatment team. She is seen today for follow-up. Patient reports that her depression was a little bit better this morning for an hour to and then she started to feel hopeless and worthless again. Patient is not sure of the reason why she initially felt better but states that she is more hopeful about her future. She still struggles with having to be admitted to the psychiatric unit and the stigma that is associated with this. We talked about using the admission as a tool to allow for med changes as well as for her to gain coping strategies and understand her illness. Patient agreeable. She denies suicidal thoughts today and states they are much less frequent than when she first arrived. She still struggles with sleep but does not want a sleep aid. She is willing to adjust her Lexapro. Review of Systems Constitutional: Denies: fever, chills, weakness, weight change Eyes: Denies: eye pain, vision change Ears, Nose, Throat: Denies: ear pain, throat pain, dental pain, hearing loss, congestion Cardiovascular: Denies: chest pain, palpitations, dyspnea on exertion Respiratory: Denies: cough, dyspnea, wheezes Gastrointestinal: Denies: abdominal pain, nausea, vomiting, diarrhea, constipation Musculoskeletal: Denies: joint swelling, joint pain Neurological: Denies: headache, weakness, numbness, memory loss Psychiatric: Reports: depression, anxiety, abnormal sleep pattern, change in appetite, anhedonia, difficulty concentrating, hopelessness, mood swings Results - Vital Signs Vital Signs: Temp Pulse Resp BP Pulse Ox 97.6 F 63 18 134/73 97 07/14/17 09:00 07/14/17 09:00 07/14/17 09:00 07/14/17 09:00 07/09/17 13:35 - Labs Labs: Laboratory Results - last 24 hr 07/13/17 07/14/17 21:44 08:11 POC Glucose 109 H 105 H Assessment and Plan (1) Major depress dis, severe Current visit: Yes Status: Acute Plan: Continue hospitalization, Close observation, Suicide Precautions per unit protocol, Encourage participation in unit milieu, Group Therapy, Monitor sleep, Monitor appetite Additional Plan: Continue hospitalization. Patient noting only slight improvement in mood. She does report intermittent suicidal ideation although none at the time of the interview. We discussed the importance of continuing to go to groups for education and for improved coping strategies. We will increase Lexapro to 20 mg. Monitor sleep. Risks, benefits, side effects, alternatives discussed w/pt: Yes Patient agreeable to treatment: Yes (2) Anxiety Current visit: Yes Status: Acute Plan: Continue hospitalization, Close observation, Suicide Precautions per unit protocol, Encourage participation in unit milieu, Group Therapy, Monitor sleep, Monitor appetite Additional Plan: We will increase Lexapro for improvement in overall anxiety symptoms. Continue to encourage positive coping strategies. Monitor sleep closely and consider medications for this if patient is agreeable. Risks, benefits, side effects, alternatives discussed w/pt: Yes Patient agreeable to treatment: Yes Consult Discharge Plan - Plan Referrals: Cricket Duckworth, PhD [Outside] - 07/30/17 3:00 pm (The above appointment is with Cricket Duckworth, PhD for outpatient mental health counseling services. This is the first available appointment. Dr. Duckworth will contact you if he has any cancellations that would allow you to be seen sooner. Your co-pay per visit will be $40. You may pay in smith, check or money order.) Evonne Colon CNP [Advanced Practice Nurse] - 07/18/17 10:00 am (The above appointment is with Evonne Colon for primary health care and medication management services. Please arrive 10 minutes early to complete the check-in process. Please also bring your insurance card (or [facility] award letter), photo ID , and all medications in their original bottles to this appointment. If you are unable to keep this appointment, 24 hour business notice of cancellation is expected. The above appointment(s) reflects first availability. You may contact the office regularly to check for cancellations that may allow you to be seen sooner.) Psychiatry Exam - Constitutional Vitals: Temp Pulse Resp BP Pulse Ox 97.6 F 63 18 134/73 97 07/14/17 09:00 07/14/17 09:00 07/14/17 09:00 07/14/17 09:00 07/09/17 13:35 General appearance: age & developmentally appropriate, well-groomed, well- nourished - Musculoskeletal Gait: normal Station: relaxed Strength & Tone: normal for patient - Psychiatric Patient Orientation: Yes Person, Yes Time, Yes Place Level of alertness: Alert Behavior: calm, cooperative Psychomotor activity: Normal Eye Contact: Minimal Contact Mood Description: Depressed Affect description: tearful, dysphoric Speech Volume: Normal Speech pattern: normal rate, normal rhythm, normal tone, fluent, spontaneous Language & Vocabulary: consistent with education Thought Process: Linear, Goal Oriented Thought Content: Yes Suicidal ideation (denies at the time of the interview. still reports intermittent and vague SI at times), No Homicidal ideation, No Overt delusions Perceptual Disturbances: No Auditory hallucinations, No Visual hallucinations Attention Span Ability: Capable of Focused Attention Memory Description: Grossly Intact Patient Reliability: Reliable Historian Fund of knowledge: Yes abstraction ability, Yes average, Yes aware of current events Intelligence Estimate: Average Judgment: Limited Insight: Partial
[2017-07-15] MEDS: *HR* Metformin 500 MG TABLET PO SCH ×2 (08:04→20:22)
[2017-07-15] MEDS: Diltiazem CD (24hr) 240 MG CAPSULE PO SCH (08:04)
--- NOTE | 2017-07-15 10:56 | Psychiatry Progress Note ---
Date of Encounter: 07/15/17 Time of Encounter: 10:50 Subjective Interval history: Jossie is seen today for follow-up. She admits that her mood is worse and she feels like she is backsliding into a deeper depression. She continues to have fleeting and vague suicidal ideations. She is very hesitant to have family involvement in her care because she states "if I am not bad that I need to be taking care of and I probably should not be at home anyway." Attempted to reframe patient's understanding of family involvement. Discussed that patients with any medical illness do better outside the hospital when they have supportive family and friends. Patient was willing to have staff contact family to help with discharge planning when appropriate. She states she did not sleep that well last night because "the unit was busy." She does not want to take medicine for sleep because of how sensitive she is to medication. Patient reports that he increase in Lexapro makes her feel spacey and "out of it." She would like to change to a different medication. We discussed several options and patient agreeable to trying low-dose of Wellbutrin. Review of Systems Neurological: Reports: other (Dizziness) Psychiatric: Reports: depression, anxiety, abnormal sleep pattern, change in appetite, anhedonia, difficulty concentrating, hopelessness, mood swings Results - Vital Signs Vital Signs: Temp Pulse Resp BP Pulse Ox 98.5 F 71 16 126/76 97 07/15/17 07:57 07/15/17 07:57 07/15/17 07:57 07/15/17 07:57 07/09/17 13:35 - Labs Labs: Laboratory Results - last 24 hr 07/14/17 07/15/17 20:16 08:01 POC Glucose 102 H 109 H Assessment and Plan (1) Major depress dis, severe Current visit: Yes Status: Acute Plan: Continue hospitalization, Close observation, Suicide Precautions per unit protocol, Encourage participation in unit milieu, Group Therapy, Monitor sleep, Monitor appetite Additional Plan: We will taper her Lexapro. Start low-dose of Wellbutrin tomorrow morning. Encourage positive coping strategies to deal with stressors. Encouraged patient to attend group and unit activities. Consider melatonin for sleep depending on patient's response to Wellbutrin. Risks, benefits, side effects, alternatives discussed w/pt: Yes Patient agreeable to treatment: Yes (2) Anxiety Current visit: Yes Status: Acute Plan: Continue hospitalization, Close observation, Suicide Precautions per unit protocol, Encourage participation in unit milieu, Group Therapy, Monitor sleep, Monitor appetite Additional Plan: Encourage group participation for coping strategies. Vistaril as needed for anxiety. Risks, benefits, side effects, alternatives discussed w/pt: Yes Patient agreeable to treatment: Yes Consult Discharge Plan - Plan Referrals: Cricket Duckworth, PhD [Outside] - 07/30/17 3:00 pm (The above appointment is with Cricket Duckworth, PhD for outpatient mental health counseling services. This is the first available appointment. Dr. Duckworth will contact you if he has any cancellations that would allow you to be seen sooner. Your co-pay per visit will be $40. You may pay in smith, check or money order.) Evonne Colon CNP [Advanced Practice Nurse] - 07/18/17 10:00 am (The above appointment is with Evonne Colon for primary health care and medication management services. Please arrive 10 minutes early to complete the check-in process. Please also bring your insurance card (or [facility] award letter), photo ID , and all medications in their original bottles to this appointment. If you are unable to keep this appointment, 24 hour business notice of cancellation is expected. The above appointment(s) reflects first availability. You may contact the office regularly to check for cancellations that may allow you to be seen sooner.) Psychiatry Exam - Constitutional Vitals: Temp Pulse Resp BP Pulse Ox 98.5 F 71 16 126/76 97 07/15/17 07:57 07/15/17 07:57 07/15/17 07:57 07/15/17 07:57 07/09/17 13:35 General appearance: age & developmentally appropriate - Musculoskeletal Gait: normal Station: other Strength & Tone: normal for patient - Psychiatric Patient Orientation: Yes Person, Yes Time, Yes Place Level of alertness: Alert Behavior: calm, cooperative Psychomotor activity: Normal Eye Contact: Minimal Contact Mood Description: Depressed Affect description: tearful, dysphoric Speech Volume: Normal Speech pattern: normal rate, normal rhythm, normal tone Language & Vocabulary: consistent with education Thought Process: Intact, Logical, Goal Oriented Thought Content: Yes Suicidal ideation (Intermittent and vague) Perceptual Disturbances: No Auditory hallucinations, No Visual hallucinations Attention Span Ability: Capable of Focused Attention Memory Description: Grossly Intact Patient Reliability: Reliable Historian Fund of knowledge: Yes abstraction ability, Yes average Intelligence Estimate: Average Judgment: Fair Insight: Minimal
--- NOTE | 2017-07-16 08:12 | Psychiatry Progress Note ---
Date of Encounter: 07/16/17 Time of Encounter: 08:00 Subjective Interval history: Jossie is a 71-year-old female seen today for follow-up of her depression symptoms. Patient reports that she still feels the effects of the increased dose of Lexapro. She did not this medication is going to work for her. She has not noted any negative effects from the Wellbutrin. She still feels depressed. She continues to have vague suicidal ideations. "I am still not myself." Patient states she slept pretty well last night. She is still having trouble accepting her depression and does not understand why she feels this way. Review of Systems Psychiatric: Reports: depression, anxiety, change in appetite, anhedonia, difficulty concentrating, hopelessness Results - Vital Signs Vital Signs: Temp Pulse Resp BP Pulse Ox 98.1 F 71 16 128/72 97 07/15/17 19:41 07/15/17 19:41 07/15/17 19:41 07/15/17 19:41 07/09/17 13:35 - Labs Labs: Laboratory Results - last 24 hr 07/15/17 07/15/17 07/15/17 08:01 16:42 20:00 POC Glucose 109 H 90 107 H 07/16/17 07:53 POC Glucose 100 H Assessment and Plan (1) Major depress dis, severe Current visit: Yes Status: Acute Plan: Continue hospitalization, Close observation, Suicide Precautions per unit protocol, Encourage participation in unit milieu, Group Therapy, Monitor sleep, Monitor appetite Additional Plan: Patient is depressed with vague suicidal ideations. Continue Wellbutrin and monitor for side effects. Encourage positive coping strategies and group activities. Risks, benefits, side effects, alternatives discussed w/pt: Yes Patient agreeable to treatment: Yes (2) Anxiety Current visit: Yes Status: Acute Risks, benefits, side effects, alternatives discussed w/pt: Yes Patient agreeable to treatment: Yes Consult Discharge Plan - Plan Referrals: Cricket Duckworth, PhD [Outside] - 07/30/17 3:00 pm (The above appointment is with Cricket Duckworth, PhD for outpatient mental health counseling services. This is the first available appointment. Dr. Duckworth will contact you if he has any cancellations that would allow you to be seen sooner. Your co-pay per visit will be $40. You may pay in smith, check or money order.) Evonne Colon CNP [Advanced Practice Nurse] - 07/18/17 10:00 am (The above appointment is with Evonne Colon for primary health care and medication management services. Please arrive 10 minutes early to complete the check-in process. Please also bring your insurance card (or [facility] award letter), photo ID , and all medications in their original bottles to this appointment. If you are unable to keep this appointment, 24 hour business notice of cancellation is expected. The above appointment(s) reflects first availability. You may contact the office regularly to check for cancellations that may allow you to be seen sooner.) Psychiatry Exam - Constitutional Vitals: Temp Pulse Resp BP Pulse Ox 98.1 F 71 16 128/72 97 07/15/17 19:41 07/15/17 19:41 07/15/17 19:41 07/15/17 19:41 07/09/17 13:35 General appearance: age & developmentally appropriate, well-groomed, well- nourished - Musculoskeletal Gait: normal Station: other Strength & Tone: normal for patient - Psychiatric Patient Orientation: Yes Person, Yes Time, Yes Place, Yes Circumstance Level of alertness: Alert Behavior: calm, cooperative Psychomotor activity: Normal Eye Contact: Minimal Contact Mood Description: Depressed Affect description: congruent with mood, dysphoric Speech Volume: Normal Speech pattern: normal rate, normal rhythm, normal tone, fluent, spontaneous Language & Vocabulary: consistent with education Thought Process: Intact, Logical, Goal Oriented Thought Content: Yes Suicidal ideation (vague) Perceptual Disturbances: No Auditory hallucinations, No Visual hallucinations Attention Span Ability: Capable of Focused Attention Memory Description: Grossly Intact Patient Reliability: Reliable Historian Fund of knowledge: Yes abstraction ability, Yes average Intelligence Estimate: Average Judgment: Limited Insight: Minimal
[2017-07-16] MEDS: BuPROPion SR (12 HR) 150 MG TABLET PO SCH (08:57)
[2017-07-16] MEDS: Diltiazem CD (24hr) 240 MG CAPSULE PO SCH (08:58)
[2017-07-16] MEDS: *HR* Metformin 500 MG TABLET PO SCH ×2 (08:58→21:04)
[2017-07-17] MEDS: Diltiazem CD (24hr) 240 MG CAPSULE PO SCH (08:30)
[2017-07-17] MEDS: *HR* Metformin 500 MG TABLET PO SCH ×2 (08:31→21:22)
[2017-07-17] MEDS: BuPROPion SR (12 HR) 150 MG TABLET PO SCH (08:31)
--- NOTE | 2017-07-17 12:15 | Psychiatry Progress Note ---
Date of Encounter: 07/17/17 Time of Encounter: 08:45 Subjective Interval history: Jossie is seen today for follow-up. She reports that she still feels "foggy." She is not sure if this is the medicine or not and she is willing to try adjustments in meds. She continues to endorse suicidal ideation without intent to harm herself here. She feels very overwhelmed with the idea that she may never "get back to normal. " She remains very sensitive to the fact that she has required psychiatric hospitalization and at the same time very scared about being discharged prior to feeling ready. Patient reports she had broken sleep last night because of things going on the unit. She declines a sleep aid because of her sensitivity to medications. Review of Systems Psychiatric: Reports: depression, anxiety, change in appetite, anhedonia, difficulty concentrating, hopelessness Results - Vital Signs Vital Signs: Temp Pulse Resp BP Pulse Ox 98.1 F 67 20 130/74 97 07/17/17 09:00 07/17/17 09:00 07/17/17 09:00 07/17/17 09:00 07/09/17 13:35 - Labs Labs: Laboratory Results - last 24 hr 07/16/17 07/17/17 20:59 07:38 POC Glucose 141 H 98 Assessment and Plan (1) Major depress dis, severe Current visit: Yes Status: Acute Plan: Continue hospitalization, Close observation, Suicide Precautions per unit protocol, Encourage participation in unit milieu, Group Therapy, Monitor sleep, Monitor appetite Additional Plan: Encourage group attendance. Patient will need to continue hospitalization until suicidal ideation and severely depressed mood improves. We will increase Wellbutrin. Risks, benefits, side effects, alternatives discussed w/pt: Yes Patient agreeable to treatment: Yes (2) Anxiety Current visit: Yes Status: Acute Plan: Continue hospitalization, Close observation, Suicide Precautions per unit protocol, Encourage participation in unit milieu, Group Therapy, Monitor sleep, Monitor appetite Additional Plan: Encourage positive coping strategies. Risks, benefits, side effects, alternatives discussed w/pt: Yes Patient agreeable to treatment: Yes Consult Discharge Plan - Plan Referrals: Cricket Duckworth, PhD [Outside] - 07/30/17 3:00 pm (The above appointment is with Cricket Duckworth, PhD for outpatient mental health counseling services. This is the first available appointment. Dr. Duckworth will contact you if he has any cancellations that would allow you to be seen sooner. Your co-pay per visit will be $40. You may pay in smith, check or money order.) Janeth Crabtree CNP [Partnered Physician] - 07/25/17 10:00 am (The above appointment is with Dr. Hinton' nurse practitioner, Osiel Crabtree, for primary health care and medication management services. Please arrive 10 minutes early to complete the check-in process. Please also bring your insurance card (or [facility] award letter), photo ID, and all medications in their original bottles to this appointment. If you are unable to keep this appointment, 24 hour business notice of cancellation is expected. The above appointment(s) reflects first availability. You may contact the office regularly to check for cancellations that may allow you to be seen sooner.) Psychiatry Exam - Constitutional Vitals: Temp Pulse Resp BP Pulse Ox 98.1 F 67 20 130/74 97 07/17/17 09:00 07/17/17 09:00 07/17/17 09:00 07/17/17 09:00 07/09/17 13:35 General appearance: age & developmentally appropriate, well-groomed - Musculoskeletal Gait: normal Station: stooped Strength & Tone: normal for patient - Psychiatric Patient Orientation: Yes Person, Yes Time, Yes Place, Yes Circumstance Level of alertness: Alert Behavior: cooperative, anxious, tearful Psychomotor activity: Normal Eye Contact: Maintains Eye Contact Mood Description: Depressed, Anxious Affect description: tearful, dysphoric, anxious Speech Volume: Normal Speech pattern: normal rate, normal rhythm, normal tone, fluent, spontaneous Language & Vocabulary: consistent with education Thought Process: Intact, Logical, Linear, Goal Oriented Thought Content: Yes Suicidal ideation Perceptual Disturbances: No Auditory hallucinations, No Visual hallucinations Attention Span Ability: Capable of Focused Attention Memory Description: Grossly Intact Patient Reliability: Reliable Historian Fund of knowledge: Yes abstraction ability, Yes average Intelligence Estimate: Average Judgment: Limited Insight: Partial
[2017-07-18] MEDS: *HR* Metformin 500 MG TABLET PO SCH ×2 (08:51→20:26)
[2017-07-18] MEDS: Diltiazem CD (24hr) 240 MG CAPSULE PO SCH (08:51)
[2017-07-18] MEDS ORDERED: BuPROPion SR (12 HR) 150 MG TABLET PO SCH (09:00)
--- NOTE | 2017-07-18 11:27 | Psychiatry Progress Note ---
Date of Encounter: 07/18/17 Time of Encounter: 11:00 Subjective Interval history: Jossie is seen today for follow-up of her depression and anxiety symptoms. Patient states the second dose of Wellbutrin made her a little bit jittery and she did not sleep as well last night. She is willing to make adjustments in the medications. She still feels very depressed and hopeless. Patient states that thoughts of killing herself, go but she feels that would worsen if she left the hospital. When asked if she would try to kill herself if she leaves the hospital patient states "probably." Patient did not elaborate on the plan. Encourage group attendance and patient willing to try adjusting Wellbutrin so that it does not interfere with sleep. Review of Systems Constitutional: Denies: weakness Musculoskeletal: Denies: back pain, joint pain Psychiatric: Reports: depression, anxiety, change in appetite, anhedonia, difficulty concentrating, hopelessness Results - Vital Signs Vital Signs: Temp Pulse Resp BP Pulse Ox 97.7 F 62 16 139/74 97 07/18/17 09:00 07/18/17 09:00 07/18/17 09:00 07/18/17 09:00 07/09/17 13:35 - Labs Labs: Laboratory Results - last 24 hr 07/17/17 07/18/17 20:27 08:42 POC Glucose 149 H 148 H Assessment and Plan (1) Major depress dis, severe Current visit: Yes Status: Acute Plan: Continue hospitalization, Close observation, Suicide Precautions per unit protocol, Encourage participation in unit milieu, Group Therapy, Monitor sleep, Monitor appetite Additional Plan: Adjust Wellbutrin dosing to 300 mg by mouth every morning. Consider adding 2 mg of Abilify if patient does not started to note mood improvement. Encourage group attendance and positive coping strategies. Continue hospitalization as patient remains suicidal. She continues to report severe depression. Risks, benefits, side effects, alternatives discussed w/pt: Yes Patient agreeable to treatment: Yes (2) Anxiety Current visit: Yes Status: Acute Plan: Continue hospitalization, Close observation, Suicide Precautions per unit protocol, Encourage participation in unit milieu, Group Therapy, Monitor sleep, Monitor appetite Risks, benefits, side effects, alternatives discussed w/pt: Yes Patient agreeable to treatment: Yes Consult Discharge Plan - Plan Referrals: Cricket Duckworth, PhD [Outside] - 07/30/17 3:00 pm (The above appointment is with Cricket Duckworth, PhD for outpatient mental health counseling services. This is the first available appointment. Dr. Duckworth will contact you if he has any cancellations that would allow you to be seen sooner. Your co-pay per visit will be $40. You may pay in smith, check or money order.) Janeth Crabtree CNP [Partnered Physician] - 07/25/17 10:00 am (The above appointment is with Dr. Hinton' nurse practitioner, Osiel Crabtree, for primary health care and medication management services. Please arrive 10 minutes early to complete the check-in process. Please also bring your insurance card (or [facility] award letter), photo ID, and all medications in their original bottles to this appointment. If you are unable to keep this appointment, 24 hour business notice of cancellation is expected. The above appointment(s) reflects first availability. You may contact the office regularly to check for cancellations that may allow you to be seen sooner.) Psychiatry Exam - Constitutional Vitals: Temp Pulse Resp BP Pulse Ox 97.7 F 62 16 139/74 97 07/18/17 09:00 07/18/17 09:00 07/18/17 09:00 07/18/17 09:00 07/09/17 13:35 General appearance: age & developmentally appropriate - Musculoskeletal Gait: slow Station: stooped Strength & Tone: normal for patient - Psychiatric Patient Orientation: Yes Person, Yes Time, Yes Place, Yes Circumstance Level of alertness: Alert Behavior: cooperative, anxious, tearful Psychomotor activity: Normal Eye Contact: Fleeting Contact Mood Description: Depressed Affect description: tearful, dysphoric Speech Volume: Normal Speech pattern: normal rate, normal rhythm, normal tone, fluent, spontaneous Language & Vocabulary: consistent with education Thought Process: Intact, Logical Thought Content: Yes Suicidal ideation, No Homicidal ideation Perceptual Disturbances: No Auditory hallucinations, No Visual hallucinations Attention Span Ability: Capable of Focused Attention Memory Description: Grossly Intact Patient Reliability: Reliable Historian Fund of knowledge: Yes abstraction ability, Yes average, Yes aware of current events Intelligence Estimate: Average Judgment: Limited Insight: Partial
[2017-07-18] MEDS: Acetaminophen 325 MG TABLET PO PRN (20:26)
[2017-07-19] MEDS: *HR* Metformin 500 MG TABLET PO SCH ×2 (08:51→20:44)
[2017-07-19] MEDS: BuPROPion SR (12 HR) 150 MG TABLET PO SCH (08:51)
[2017-07-19] MEDS: Diltiazem CD (24hr) 240 MG CAPSULE PO SCH (08:51)
--- NOTE | 2017-07-19 16:23 | Psychiatry Progress Note ---
Date of Encounter: 07/19/17 Time of Encounter: 15:20 Subjective Interval history: Pt is a 71 yo, , female, who presents for mood and depression. Pt noted that she feels she is improving slowly. Pt noted she is optimistic to get better and return home. Pt noted they have coordinated babysitting for my grandchild so I dont have to anymore. Pt denied any side effects to current medications. Pt noted she felt safe and comfortable on the unit. Pt was in agreement with treatment plan. Pt noted that she is doing alright today just a little more anxious. Pt noted she slept 11 hours last night. Pt noted her appetite is better. Pt rated her depression a 6, on a scale of zero to ten with ten being the worst and zero being none. Pt rate her anxiety a 7 .due to the medicationsbut its getting better, on the same scale. Pt denied any auditory or visual hallucinations. Pt denied any thoughts to harm herself or anyone else. Tobacco: Denies Alcohol: Denies Street: Denies Caffeine: Denies Pt denies any hx of HIV, Hep C, TBI or Seizures. 1.Interval hx 2.Continue current medications 3.Review current labs 4.Pt had an opportunity to ask questions and discuss current treatment plan. 5.Supportive therapy was provided 6.Pt encouraged to consider group or individual therapy 7.Pt was in agreement with treatment plan. 8.Pt was educated on the risks benefits and side effects of current medications. Review of Systems Psychiatric: Reports: depression, anxiety, change in appetite, anhedonia, difficulty concentrating, hopelessness Results - Vital Signs Vital Signs: Temp Pulse Resp BP Pulse Ox 97.5 F L 60 16 119/66 97 07/19/17 09:00 07/19/17 09:00 07/19/17 09:00 07/19/17 09:00 07/09/17 13:35 - Labs Labs: Laboratory Results - last 24 hr 07/18/17 07/19/17 20:24 08:50 POC Glucose 113 H 151 H Consult Discharge Plan - Plan Referrals: Cricket Duckworth, PhD [Outside] - 07/30/17 3:00 pm (The above appointment is with Cricket Duckworth, PhD for outpatient mental health counseling services. This is the first available appointment. Dr. Duckworth will contact you if he has any cancellations that would allow you to be seen sooner. Your co-pay per visit will be $40. You may pay in smith, check or money order.) Janeth Crabtree CNP [Partnered Physician] - 07/25/17 10:00 am (The above appointment is with Dr. Hinton' nurse practitioner, Osiel Crabtree, for primary health care and medication management services. Please arrive 10 minutes early to complete the check-in process. Please also bring your insurance card (or [facility] award letter), photo ID, and all medications in their original bottles to this appointment. If you are unable to keep this appointment, 24 hour business notice of cancellation is expected. The above appointment(s) reflects first availability. You may contact the office regularly to check for cancellations that may allow you to be seen sooner.) Psychiatry Exam - Constitutional Vitals: Temp Pulse Resp BP Pulse Ox 97.5 F L 60 16 119/66 97 07/19/17 09:00 07/19/17 09:00 07/19/17 09:00 07/19/17 09:00 07/09/17 13:35
[2017-07-19] MEDS: hydrOXYzine pamoate 25 MG CAPSULE PO PRN (17:30)
[2017-07-19] MEDS: Acetaminophen 325 MG TABLET PO PRN (20:44)
[2017-07-20] MEDS: hydrOXYzine pamoate 25 MG CAPSULE PO PRN (07:44)
[2017-07-20] MEDS: BuPROPion SR (12 HR) 150 MG TABLET PO SCH (09:10)
[2017-07-20] MEDS: *HR* Metformin 500 MG TABLET PO SCH ×2 (09:11→21:26)
[2017-07-20] MEDS: Diltiazem CD (24hr) 240 MG CAPSULE PO SCH (09:11)
--- NOTE | 2017-07-20 13:53 | Psychiatry Progress Note ---
Date of Encounter: 07/20/17 Time of Encounter: 13:00 Subjective Interval history: Pt is a 71 yo, , female, who presents for mood and depression. Pt noted that she continues to feel she is improving slowly. Pt noted she remains optimistic to get better and return home. requested to reduce to buproprion due to exacerbation of anxiety. Pt additionally agreed to initated busparone for anxiety, pt was educated on the risks benifits and side-effects including no medicatons. Pt denied any side effects to current medications. Pt noted she felt safe and comfortable on the unit. Pt was in agreement with treatment plan. Pt noted that she is doing okay......I just have a little more anxiety. Pt noted she slept 11 hours last night. Pt noted her appetite is better. Pt rated her depression a 7, on a scale of zero to ten with ten being the worst and zero being none. Pt rate her anxiety a "8.due to the medications hydroxyzine does help, on the same scale. Pt denied any auditory or visual hallucinations. Pt denied any thoughts to harm herself or anyone else. Tobacco: Denies Alcohol: Denies Street: Denies Caffeine: Denies Pt denies any hx of HIV, Hep C, TBI or Seizures. MSE: Alert and Oriented x4 Appearance: neatly groomed dressed in appropriate attire Behavior: friendly, courteous, polite Speech: Fluent, normal tone, normal rate Mood: depressed Affect: mood congruent Thought content: no HI noted, no SI noted, No delusions noted Psychosis: none noted, currently not responding to internal stimuli. Thought Process: Linear coherent goal directed Judgment: Questionable. Insight: fair. 1.Interval hx 2. Decrease wellbutrin to 150 mg PO QAM per pt request 3. start buspar 5 mg PO TID for anxiety. 4.Continue all other current medications 5.Review current labs 6.Pt had an opportunity to ask questions and discuss current treatment plan. 7.Supportive therapy was provided 8.Pt encouraged to consider group or individual therapy 9.Pt was in agreement with treatment plan. 10.Pt was educated on the risks benefits and side effects of current medications. Review of Systems Psychiatric: Reports: depression, anxiety, change in appetite, anhedonia, difficulty concentrating, hopelessness Results - Vital Signs Vital Signs: Temp Pulse Resp BP Pulse Ox 97.6 F 63 18 116/72 97 07/20/17 09:00 07/20/17 09:00 07/20/17 09:00 07/20/17 09:00 07/09/17 13:35 - Labs Labs: Laboratory Results - last 24 hr 07/19/17 07/20/17 20:41 08:56 POC Glucose 91 105 H Assessment and Plan (1) Suicidal ideation Current visit: Yes Status: Acute Risks, benefits, side effects, alternatives discussed w/pt: Yes Patient agreeable to treatment: Yes (2) Major depress dis, severe Current visit: Yes Status: Acute Risks, benefits, side effects, alternatives discussed w/pt: Yes Patient agreeable to treatment: Yes (3) Major depressive disorder, recurrent Current visit: Yes Status: Acute Risks, benefits, side effects, alternatives discussed w/pt: Yes Patient agreeable to treatment: Yes Qualifiers: Active/Remission status: currently active Major depression episode severity : severe Psychotic features: without psychotic features Qualified Code(s): F33.2 - Major depressive disorder, recurrent severe without psychotic features (4) Anxiety Current visit: Yes Status: Acute Risks, benefits, side effects, alternatives discussed w/pt: Yes Patient agreeable to treatment: Yes Consult Discharge Plan - Plan Referrals: Cricket Duckworth, PhD [Outside] - 07/30/17 3:00 pm (The above appointment is with Cricket Duckworth, PhD for outpatient mental health counseling services. This is the first available appointment. Dr. Duckworth will contact you if he has any cancellations that would allow you to be seen sooner. Your co-pay per visit will be $40. You may pay in smith, check or money order.) Janeth Crabtree CNP [Partnered Physician] - 07/25/17 10:00 am (The above appointment is with Dr. Hinton' nurse practitioner, Osiel Crabtree, for primary health care and medication management services. Please arrive 10 minutes early to complete the check-in process. Please also bring your insurance card (or [facility]), photo ID, and all medications in their original bottles to this appointment. If you are unable to keep this appointment, 24 hour business notice of cancellation is expected. The above appointment(s) reflects first availability. You may contact the office regularly to check for cancellations that may allow you to be seen sooner.) Psychiatry Exam - Constitutional Vitals: Temp Pulse Resp BP Pulse Ox 97.6 F 63 18 116/72 97 07/20/17 09:00 07/20/17 09:00 07/20/17 09:00 07/20/17 09:00 07/09/17 13:35
[2017-07-20] MEDS: Acetaminophen 325 MG TABLET PO PRN (21:25)
[2017-07-21] MEDS: Diltiazem CD (24hr) 240 MG CAPSULE PO SCH (09:32)
[2017-07-21] MEDS: *HR* Metformin 500 MG TABLET PO SCH ×2 (09:32→20:34)
[2017-07-21] MEDS: BuPROPion SR (12 HR) 150 MG TABLET PO SCH (09:33)
--- NOTE | 2017-07-21 12:12 | Psychiatry Progress Note ---
Date of Encounter: 07/21/17 Time of Encounter: 11:45 Subjective Interval history: Pt is a 71 yo, , female, who presents for mood and depression. Pt noted that she continues to feel she is improving slowly. Pt noted "I feel much better today and feel I nearing able to return home." Pt noted she is doing much better on her current medicatons. Pt denied any side effects to current medications. Pt noted she felt safe and comfortable on the unit. Pt was in agreement with treatment plan. Pt noted that she is doing much better today. Pt noted she slept "8 hours last night. Pt noted her appetite is better. Pt rated her depression a 6, on a scale of zero to ten with ten being the worst and zero being none. Pt rate her anxiety a "8.due to the medicationshydroxyzine does help, on the same scale. Pt denied any auditory or visual hallucinations. Pt denied any thoughts to harm herself or anyone else. Tobacco: Denies Alcohol: Denies Street: Denies Caffeine: Denies Pt denies any hx of HIV, Hep C, TBI or Seizures. MSE: Alert and Oriented x4 Appearance: neatly groomed dressed in appropriate attire Behavior: friendly, courteous, polite Speech: Fluent, normal tone, normal rate Mood: Much better Affect: mood congruent Thought content: no HI noted, no SI noted, No delusions noted Psychosis: none noted, currently not responding to internal stimuli. Thought Process: Linear coherent goal directed Judgment: Questionable. Insight: fair. 1.Interval hx 2. Continue wellbutrin to 150 mg PO QAM per pt request 3. Continue buspar 5 mg PO TID for anxiety. 4.Continue all other current medications 5.Review current labs 6.Pt had an opportunity to ask questions and discuss current treatment plan. 7.Supportive therapy was provided 8.Pt encouraged to consider group or individual therapy 9.Pt was in agreement with treatment plan. 10.Pt was educated on the risks benefits and side effects of current medications. 11. Begin coordinate for Discharge planing home, 07/23/2017 Review of Systems Psychiatric: Reports: depression, anxiety, change in appetite, anhedonia, difficulty concentrating, hopelessness Results - Vital Signs Vital Signs: Temp Pulse Resp BP Pulse Ox 97.7 F 69 16 133/86 97 07/21/17 09:00 07/21/17 09:00 07/21/17 09:00 07/21/17 09:00 07/09/17 13:35 - Labs Labs: Laboratory Results - last 24 hr 07/20/17 07/21/17 20:27 08:23 POC Glucose 105 H 94 Assessment and Plan (1) Suicidal ideation Current visit: Yes Status: Acute Risks, benefits, side effects, alternatives discussed w/pt: Yes Patient agreeable to treatment: Yes (2) Major depress dis, severe Current visit: Yes Status: Acute Risks, benefits, side effects, alternatives discussed w/pt: Yes Patient agreeable to treatment: Yes (3) Major depressive disorder, recurrent Current visit: Yes Status: Acute Risks, benefits, side effects, alternatives discussed w/pt: Yes Patient agreeable to treatment: Yes Qualifiers: Active/Remission status: currently active Major depression episode severity : severe Psychotic features: without psychotic features Qualified Code(s): F33.2 - Major depressive disorder, recurrent severe without psychotic features (4) Anxiety Current visit: Yes Status: Acute Risks, benefits, side effects, alternatives discussed w/pt: Yes Patient agreeable to treatment: Yes Consult Discharge Plan - Plan Referrals: Cricket Duckworth, PhD [Outside] - 07/30/17 3:00 pm (The above appointment is with Cricket Duckworth, PhD for outpatient mental health counseling services. This is the first available appointment. Dr. Duckworth will contact you if he has any cancellations that would allow you to be seen sooner. Your co-pay per visit will be $40. You may pay in smith, check or money order.) aJneth Crabtree CNP [Partnered Physician] - 07/25/17 10:00 am (The above appointment is with Dr. Hinton' nurse practitioner, Osiel Crabtree, for primary health care and medication management services. Please arrive 10 minutes early to complete the check-in process. Please also bring your insurance card (or [facility] award letter), photo ID, and all medications in their original bottles to this appointment. If you are unable to keep this appointment, 24 hour business notice of cancellation is expected. The above appointment(s) reflects first availability. You may contact the office regularly to check for cancellations that may allow you to be seen sooner.) Psychiatry Exam - Constitutional Vitals: Temp Pulse Resp BP Pulse Ox 97.7 F 69 16 133/86 97 07/21/17 09:00 07/21/17 09:00 07/21/17 09:00 07/21/17 09:00 07/09/17 13:35 General appearance: age & developmentally appropriate - Musculoskeletal Gait: normal Strength & Tone: normal for patient - Psychiatric Patient Orientation: Yes Person, Yes Time, Yes Place, Yes Circumstance Level of alertness: Alert Behavior: calm, cooperative Psychomotor activity: Normal Eye Contact: Maintains Eye Contact Mood Description: Euthymic/stable Affect description: congruent with mood Speech Volume: Normal Speech pattern: normal rate, normal rhythm Language & Vocabulary: consistent with education Thought Process: Intact, Logical, Linear, Goal Oriented Thought Content: Yes Intact Perceptual Disturbances: Yes Reacting to internal stimuli Attention Span Ability: Capable of Focused Attention Memory Description: Grossly Intact Patient Reliability: Reliable Historian Fund of knowledge: Yes average Intelligence Estimate: Average Judgment: Fair Insight: Full
[2017-07-22] MEDS: BuPROPion SR (12 HR) 150 MG TABLET PO SCH (08:23)
[2017-07-22] MEDS: Diltiazem CD (24hr) 240 MG CAPSULE PO SCH (08:23)
[2017-07-22] MEDS: *HR* Metformin 500 MG TABLET PO SCH ×2 (08:24→20:52)
--- NOTE | 2017-07-22 13:11 | Psychiatry Progress Note ---
Date of Encounter: 07/22/17 Time of Encounter: 12:30 Subjective Interval history: Pt is a 71 yo, , female, who presents for mood and depression. Pt noted that she doing much better and feels that remaining on the unit is "actually starting to bring me down." Pt noted "I feel much better today and I feel I could possibly return home tomorrow." Pt noted she is doing much better on her current medications. Pt denied any side effects to current medications. Pt noted she felt safe and comfortable on the unit. Pt was in agreement with treatment plan. Pt continues to noted that she is doing much better today. Pt noted she slept "8 hours last night....just not as good that girl just kept yelling. Pt noted her appetite is better. Pt rated her depression a 5, on a scale of zero to ten with ten being the worst and zero being none. Pt rate her anxiety a "4.much better, on the same scale. Pt denied any auditory or visual hallucinations. Pt denied any thoughts to harm herself or anyone else. MSE: Alert and Oriented x4 Appearance: neatly groomed dressed in appropriate attire Behavior: friendly, courteous, polite Speech: Fluent, normal tone, normal rate Mood: Much better Affect: mood congruent Thought content: no HI noted, no SI noted, No delusions noted Psychosis: none noted, currently not responding to internal stimuli. Thought Process: Linear coherent goal directed Judgment: fair. Insight: good. 1.Interval hx 2. Continue wellbutrin to 150 mg PO QAM per pt request 3. Continue buspar 5 mg PO TID for anxiety. 4.Continue all other current medications 5.Review current labs 6.Pt had an opportunity to ask questions and discuss current treatment plan. 7.Supportive therapy was provided 8.Pt encouraged to consider group or individual therapy 9.Pt was in agreement with treatment plan. 10.Pt was educated on the risks benefits and side effects of current medications. 11. Continue to coordinate for Discharge planing home, 07/23/2017 Review of Systems Psychiatric: Reports: depression, anxiety, change in appetite, anhedonia, difficulty concentrating, hopelessness Results - Vital Signs Vital Signs: Temp Pulse Resp BP Pulse Ox 97.6 F 62 18 130/75 97 07/22/17 09:00 07/22/17 09:00 07/22/17 09:00 07/22/17 09:00 07/09/17 13:35 - Labs Labs: Laboratory Results - last 24 hr 07/21/17 07/22/17 20:40 07:49 POC Glucose 107 H 107 H Assessment and Plan (1) Suicidal ideation Current visit: Yes Status: Acute Risks, benefits, side effects, alternatives discussed w/pt: Yes Patient agreeable to treatment: Yes (2) Major depress dis, severe Current visit: Yes Status: Acute Risks, benefits, side effects, alternatives discussed w/pt: Yes Patient agreeable to treatment: Yes (3) Major depressive disorder, recurrent Current visit: Yes Status: Acute Risks, benefits, side effects, alternatives discussed w/pt: Yes Patient agreeable to treatment: Yes Qualifiers: Active/Remission status: currently active Major depression episode severity : severe Psychotic features: without psychotic features Qualified Code(s): F33.2 - Major depressive disorder, recurrent severe without psychotic features (4) Anxiety Current visit: Yes Status: Acute Risks, benefits, side effects, alternatives discussed w/pt: Yes Patient agreeable to treatment: Yes Consult Discharge Plan - Plan Referrals: Cricket Duckworth, PhD [Outside] - 07/30/17 3:00 pm (The above appointment is with Cricket Duckworth, PhD for outpatient mental health counseling services. This is the first available appointment. Dr. Duckworth will contact you if he has any cancellations that would allow you to be seen sooner. Your co-pay per visit will be $40. You may pay in smith, check or money order.) Janeth Crabtree CNP [Partnered Physician] - 07/25/17 10:00 am (The above appointment is with Dr. Hinton' nurse practitioner, Osiel Crabtree, for primary health care and medication management services. Please arrive 10 minutes early to complete the check-in process. Please also bring your insurance card (or [facility] award letter), photo ID, and all medications in their original bottles to this appointment. If you are unable to keep this appointment, 24 hour business notice of cancellation is expected. The above appointment(s) reflects first availability. You may contact the office regularly to check for cancellations that may allow you to be seen sooner.) Psychiatry Exam - Constitutional Vitals: Temp Pulse Resp BP Pulse Ox 97.6 F 62 18 130/75 97 07/22/17 09:00 07/22/17 09:00 07/22/17 09:00 07/22/17 09:00 07/09/17 13:35 - Psychiatric Patient Orientation: Yes Person, Yes Time, Yes Place, Yes Circumstance Level of alertness: Alert Behavior: calm, cooperative Psychomotor activity: Normal Eye Contact: Maintains Eye Contact Mood Description: Euthymic/stable Affect description: congruent with mood Speech Volume: Normal Speech pattern: normal rate, normal rhythm, normal tone, fluent Language & Vocabulary: consistent with education Thought Process: Intact, Logical, Linear, Goal Oriented Thought Content: Yes Intact Attention Span Ability: Capable of Focused Attention Memory Description: Grossly Intact Patient Reliability: Reliable Historian Fund of knowledge: Yes abstraction ability Intelligence Estimate: Average Judgment: Fair Insight: Full
[2017-07-22] MEDS: Acetaminophen 325 MG TABLET PO PRN (20:55)
--- NOTE | 2017-07-23 07:19 | Discharge Summary ---
Date of Encounter: 07/23/17 Time of Encounter: 07:00 Diagnosis - Discharge Diagnosis (1) Suicidal ideation Priority: Primary Status: Acute (2) Major depress dis, severe Priority: Primary Status: Acute (3) Major depressive disorder, recurrent Priority: Primary Status: Acute Qualifiers: Active/Remission status: currently active Major depression episode severity : severe Psychotic features: without psychotic features Qualified Code(s): F33.2 - Major depressive disorder, recurrent severe without psychotic features (4) Anxiety Status: Acute Medications - Discharge Medications Prescriptions: BuPROPion SR (12 HR) [Wellbutrin SR] 150 mg PO DAILY #30 tablet.er Buspirone HCl [Buspar] 5 mg PO TID #90 tablet Diltiazem CD (24hr) [Cardizem CD] 240 mg PO DAILY 07/09/17 [History] Lisinopril [Zestril] 10 mg PO DAILY 07/09/17 [History] Triamterene/HCTZ 37.5/25mg [Dyazide] 1 tab PO DAILY 07/09/17 [History] metFORMIN [Glucophage] 500 mg PO BID 07/09/17 [History] BuPROPion SR (12 HR) [Wellbutrin SR] 150 mg PO DAILY #30 tablet.er 07/23/17 [Rx] Buspirone HCl [Buspar] 5 mg PO TID #90 tablet 07/23/17 [Rx] 3 Allergy/AdvReac Type Severity Reaction Status Date / Time ciprofloxacin [From Cipro] Allergy Anaphylaxis Verified 07/09/17 13:22 Provider Date of admission: 07/09/17 17:18 Primary care physician: PCP NONE Discharging clinician: Bhargav Huerta Psychiatry Exam - Constitutional Vitals: Temp Pulse Resp BP Pulse Ox 97.6 F 66 16 126/78 97 07/22/17 20:18 07/22/17 20:18 07/22/17 20:18 07/22/17 20:18 07/09/17 13:35 - Psychiatric Patient Orientation: Yes Person, Yes Time, Yes Place, Yes Circumstance Level of alertness: Alert Behavior: calm Psychomotor activity: Normal Eye Contact: Maintains Eye Contact Mood Description: Euthymic/stable Affect description: congruent with mood Speech Volume: Normal Speech pattern: normal rate, normal rhythm, normal tone, fluent Language & Vocabulary: consistent with education Thought Process: Intact, Logical, Linear, Goal Oriented Thought Content: Yes Intact Attention Span Ability: Capable of Focused Attention Memory Description: Grossly Intact Patient Reliability: Reliable Historian Fund of knowledge: Yes average Intelligence Estimate: Average Judgment: Good Insight: Full Hospital Course Hospital course: Pt is a 71 yo, , female, who presents for mood and depression and SI. Pt noted that she doing much better and feels "safe and comfortable to return home.....I am ready." Pt noted "I feel so much better." Pt noted she is doing much better on her current medications and feels safe and comfortable discharging home on them. Pt denied any side effects to current medications. Pt noted she felt safe and comfortable on the unit. Pt was in agreement with treatment plan. Pt continues to noted that she is doing much better today. Pt noted she slept "8 hours last night.... Pt noted her appetite is better. Pt rated her depression a 2, on a scale of zero to ten with ten being the worst and zero being none. Pt rate her anxiety a "1, on the same scale. Pt denied any auditory or visual hallucinations. Pt denied any thoughts to harm herself or anyone else. MSE: Alert and Oriented x4 Appearance: neatly groomed dressed in appropriate attire Behavior: friendly, courteous, polite Speech: Fluent, normal tone, normal rate Mood: good Affect: mood congruent Thought content: no HI noted, no SI noted, No delusions noted Psychosis: none noted, currently not responding to internal stimuli. Thought Process: Linear coherent goal directed Judgment: good. Insight: good. 1.Interval hx 2. Continue wellbutrin to 150 mg PO QAM per pt request 3. Continue buspar 5 mg PO TID for anxiety. 4.Continue all other current medications 5.Review current labs 6.Pt had an opportunity to ask questions and discuss current treatment plan. 7.Supportive therapy was provided 8.Pt encouraged to consider group or individual therapy 9.Pt was in agreement with treatment plan. 10.Pt was educated on the risks benefits and side effects of current medications. 11. D/C pt home - Time Spent with Patient Total time spent providing and/or coordinating discharge services: Greater than 30 minutes Assessment and Plan - Patient/Caregiver Discharge Instructions Activity: resume usual activities as tolerated Diet: regular diet - Follow up Plan Follow up with: Cricket Duckworth, PhD [Outside] - 07/30/17 3:00 pm (The above appointment is with Cricket Duckworth, PhD for outpatient mental health counseling services. This is the first available appointment. Dr. Duckworth will contact you if he has any cancellations that would allow you to be seen sooner. Your co-pay per visit will be $40. You may pay in smith, check or money order.) Janeth Crabtree CNP [Partnered Physician] - 07/25/17 10:00 am (The above appointment is with Dr. Hinton' nurse practitioner, Osiel Crabtree, for primary health care and medication management services. Please arrive 10 minutes early to complete the check-in process. Please also bring your insurance card (or [facility] award letter), photo ID, and all medications in their original bottles to this appointment. If you are unable to keep this appointment, 24 hour business notice of cancellation is expected. The above appointment(s) reflects first availability. You may contact the office regularly to check for cancellations that may allow you to be seen sooner.) Overall status at discharge: Stable Disposition: Home, Self-Care Quality - Multiple Antipsychotics Patient discharged on 2 or more antipsychotic medications: No (Pt does not smoke )
[2017-07-23] MEDS: *HR* Metformin 500 MG TABLET PO SCH (08:46)
[2017-07-23] MEDS: BuPROPion SR (12 HR) 150 MG TABLET PO SCH (08:46)
[2017-07-23] MEDS: Diltiazem CD (24hr) 240 MG CAPSULE PO SCH (08:47)
[2017-07-23 09:56] VITALS: BP 132/73
== END 2017-07-23 13:03 | disposition home or self-care (01) | DRG 885 ==
LOC: EMEROO 13:18 → 1ANU 17:18 → SUATTDRO 17:18 → 1ANU 17:22
PROVIDERS: ADMIT Psychiatry & Neurology Psychiatry; ATTEND General Practice

== ENCOUNTER 2017-07-24 09:33 | Inpatient (IN) ==
[2017-07-24 10:04] LABS: Bilirubin,Urine Negative (Negative); Blood,Urine Negative (Negative); Color,Urine Yellow (Yellow); Glucose,Urine (UA) Normal (Normal); Ketones,Urine Negative (Negative); Leukocyte Esterase,Urine Moderate (Negative); Nitrite,Urine Positive (Negative); Protein,Urine Trace mg/dL (Neg-Trace); Specific Gravity,Urine 1.015 (1.010-1.025); Urobilinogen,Urine Normal (Normal)
[2017-07-24 10:07] LABS: Bacteria,Urine Many per hpf (None-Few); Hyaline Casts,Urine None Seen per lpf (None-Few); Squamous Epithelial Cell,Urine Many per lpf (None-Few); WBC,Urine 30-50 per hpf (0-3)
[2017-07-24 10:11] LABS: Basophils # 0.1 K/mcL (0.0-0.2); Basophils % 0.6 %; Eosinophils # 0.1 K/mcL (0.0-0.6); Eosinophils % 0.8 %; Hematocrit 40.5 % (35.3-44.9); Hemoglobin 14.3 g/dL (11.5-15.4); Immature Granulocytes % 0.3 % (0-4); Lymphocytes # 1.9 K/mcL (0.6-4.6); Lymphocytes % 18.2 %; Mean Corpuscular HGB Conc 35.3 g/dL (31.6-35.5); Mean Corpuscular Hemoglobin 29.5 pg (28.0-33.3); Mean Corpuscular Volume 83.5 fL (83.0-100.0); Mean Platelet Volume 9.8 fL (9.4-12.4); Monocytes # 0.5 K/mcL (0.0-1.3); Monocytes % 4.5 %; Neutrophils # 7.9 K/mcL (1.6-8.9); Platelet Count 303 K/mcL (140-400); Red Blood Count 4.85 M/mcL (3.82-4.97); Red Cell Distribution Width 13.7 % (11.5-14.5); Segmented Neutrophils % 75.6 %
--- NOTE | 2017-07-24 10:15 | Emergency Department Note ---
Disposition Clinical Impression: Suicidal ideation Disposition: Still a Patient Referrals: NONE,PCP [Primary Care Provider] - General Adult HPI - General Chief complaint: ED Psychiatric Symptoms Stated complaint: SI,psych Time Seen by Provider: 07/24/17 09:34 - History of Present Illness Pain Scale: 0 - Related Data Home Medications Medication Instructions Recorded Confirmed Diltiazem CD (24hr) [Cardizem CD] 240 mg PO DAILY 07/09/17 07/09/17 Lisinopril [Zestril] 10 mg PO DAILY 07/09/17 07/09/17 Triamterene/HCTZ 37.5/25mg 1 tab PO DAILY 07/09/17 07/09/17 [Dyazide] metFORMIN [Glucophage] 500 mg PO BID 07/09/17 07/09/17 Previous Rx's Medication Instructions Recorded BuPROPion SR (12 HR) [Wellbutrin 150 mg PO DAILY #30 tablet.er 07/23/17 SR] Buspirone HCl [Buspar] 5 mg PO TID #90 tablet 07/23/17 Allergies Allergy/AdvReac Type Severity Reaction Status Date / Time ciprofloxacin [From Cipro] Allergy Anaphylaxis Verified 07/09/17 13:22 Past Medical History - Past Medical History Medical history: Reports: diabetes, hypertension Surgical history: Reports: cholecystectomy Psychiatric history: Reports: anxiety, depression, previous psychiatric hospitalization - Social History Smoking Status: Never smoker Alcohol use: Reports: none Drug use: Reports: none Physical Exam - General General appearance: anxious Course Vital Signs Temperature 97.4 F L 07/24/17 09:37 Pulse Rate 92 07/24/17 09:37 Respiratory Rate 17 07/24/17 09:37 Blood Pressure 167/96 07/24/17 09:37 O2 Sat by Pulse Oximetry 94 07/24/17 09:37 Temperature 97.4 F L 07/24/17 09:37 Pulse Rate 92 07/24/17 09:37 Respiratory Rate 17 07/24/17 09:37 Blood Pressure 167/96 07/24/17 09:37 O2 Sat by Pulse Oximetry 94 07/24/17 09:37 Oxygen Delivery Oxygen Delivery Room Air Medical Decision Making - Lab Data Result diagrams: 07/24/17 09:52 Lab Results 07/24/17 Range/Units 09:52 WBC 10.5 (4.3-11.1) K/mcL RBC 4.85 (3.82-4.97) M/mcL Hgb 14.3 (11.5-15.4) g/dL Hct 40.5 (35.3-44.9) % MCV 83.5 (83.0-100.0) fL MCH 29.5 (28.0-33.3) pg MCHC 35.3 (31.6-35.5) g/dL RDW 13.7 (11.5-14.5) % Plt Count 303 (140-400) K/mcL MPV 9.8 (9.4-12.4) fL Immature Gran % 0.3 (0-4) % Seg Neutrophils % 75.6 % Lymphocytes % 18.2 % Monocytes % 4.5 % Eosinophils % 0.8 % Basophils % 0.6 % Neutrophils # 7.9 (1.6-8.9) K/mcL Lymphocytes # 1.9 (0.6-4.6) K/mcL Monocytes # 0.5 (0.0-1.3) K/mcL Eosinophils # 0.1 (0.0-0.6) K/mcL Basophils # 0.1 (0.0-0.2) K/mcL Attestation Statement - Attestation Attestation: I examined this patient and my medical decision-making was reviewed with the Resident Physician. I agree with the documented findings, disposition and treatment plan as described except to the extent set forth below. 71 year old female presnet to the ED with complaints of SI and had a history of post depression when she was kelly and has been taking care of a grandchild which has brought back her post depression and was recently discharged from . She was planinong on overdosing on her cardizem. WE will do medical clearance and then consult
[2017-07-24 10:25] LABS: Clarity,Urine Hazy (Clear)
[2017-07-24 10:29] LABS: Acetaminophen < 10 mcg/mL (10-20); BUN/Creatinine Ratio 25 (6-26); Blood Urea Nitrogen 17 mg/dL (8-23); Calcium 9.8 mg/dL (8.6-10.3); Carbon Dioxide 27 mEq/L (23-29); Chloride 101 mEq/L (98-107); Ethanol < 10 mg/dL (Less than 10); Glucose 131 mg/dL (70-105); Osmolality,Calculated 289 (280-300); Potassium 3.9 mEq/L (3.5-5.1); Salicylate < 2.5 mg/dL (15.0-30.0); Sodium 138 mEq/L (136-145); eGFR For African Americans > 60 (> 60); eGFR For Non-African Americans > 60 (> 60)
[2017-07-24] MEDS ORDERED: cephALEXin 250 MG CAPSULE PO ONE (10:54)
[2017-07-24 10:57] LABS: Amphetamine Screen,Urine Negative ng/mL (Cutoff=1000); Barbiturate Screen,Urine Negative ng/mL (Cutoff=200); Benzodiazepines Screen,Urine Negative ng/mL (Cutoff=200); Cannabinoid Screen,Urine Negative ng/mL (Cutoff = 50); Cocaine Screen,Urine Negative ng/mL (Cutoff= 300); Opiate Screen,Urine Negative ng/mL (Cutoff=300); Phencyclidine Screen,Urine Negative ng/mL (Cutoff=25)
--- NOTE | 2017-07-24 11:28 | Emergency Department Note ---
Disposition Clinical Impression: Suicidal ideation UTI (urinary tract infection) Qualifiers: Urinary tract infection type: site unspecified Hematuria presence: without hematuria Qualified Code(s): N39.0 - Urinary tract infection, site not specified Disposition: Still a Patient Time of Disposition: 14:00 Psych HPI - General Chief Complaint: ED Psychiatric Symptoms Stated Complaint: SI,psych Time Seen by Provider: 07/24/17 09:34 Source: patient Mode of arrival: ambulatory Limitations: no limitations Nursing Notes Reviewed: Yes Vital Signs Reviewed: Yes - History of Present Illness HPI Narrative: Patient is a 71-year-old female who presents to [facility] ED with a chief complaint of suicidal ideation. States that she had a plan to take all her Cardizem pills this morning. States she was just released from yesterday and was started on Wellbutrin and BuSpar. States she previously had a history of depression. However she went 45 years without having any psychiatric issues. States most recently, the psychiatrist thought maybe her babysitting her grandchild have triggered events from before. Denies any chest pain, difficulty breathing, abdominal pain, problems with urination or bowel movements. No nausea, vomiting, fever or chills. Pt complaint: suicidal ideation Onset (ago): hour(s) Duration: getting worse History of similar episodes: Yes Improves with: none Worsens with: none Alleged intoxication: No Associated Psychiatric Symptoms: suicidal ideation Associated symptoms: Reports: denies other symptoms. Denies: headache, shortness of breath, nausea, vomiting Treatments prior to arrival: none Self harm or harm to others: admits thoughts of self harm, has plan - Related Data Home Medications Medication Instructions Recorded Confirmed Diltiazem CD (24hr) [Cardizem CD] 240 mg PO DAILY 07/09/17 07/24/17 Lisinopril [Zestril] 10 mg PO DAILY 07/09/17 07/24/17 Triamterene/HCTZ 37.5/25mg 1 tab PO DAILY 07/09/17 07/24/17 [Dyazide] metFORMIN [Glucophage] 500 mg PO BID 07/09/17 07/24/17 Previous Rx's Medication Instructions Recorded BuPROPion SR (12 HR) [Wellbutrin 150 mg PO DAILY #30 tablet.er 07/23/17 SR] Buspirone HCl [Buspar] 5 mg PO TID #90 tablet 07/23/17 Allergies Allergy/AdvReac Type Severity Reaction Status Date / Time ciprofloxacin [From Cipro] Allergy Anaphylaxis Verified 07/24/17 12:35 All systems ED: reviewed and negative except as stated. Past Medical History - Past Medical History Attestation: Yes The following information was validated with the patient. Source: patient Medical history: Reports: diabetes, hypertension Surgical history: Reports: cholecystectomy Psychiatric history: Reports: anxiety, depression, previous psychiatric hospitalization - Social History Smoking Status: Never smoker Alcohol use: Reports: none Drug use: Reports: none Physical Exam - General General appearance: anxious - Head Head exam: atraumatic, normocephalic, normal inspection - Eye Eye exam: Present: normal appearance, EOMI - ENT ENT exam: normal exam, normal oropharynx, mucous membranes moist - Neck Neck exam: Present: normal inspection, full ROM, trachea midline - Chest Chest inspection: Present: normal inspection, symmetric chest wall rise - Respiratory Respiratory exam: Present: normal lung sounds bilaterally - Cardiovascular Cardiovascular exam: Present: regular rate, normal rhythm, normal heart sounds - Abdominal Exam Abdominal exam: Present: soft, Non-Tender. Absent: tenderness, distention, guarding, rebound, rigidity - Extremities Exam Extremities exam: Present: normal inspection, full ROM. Absent: tenderness, pedal edema - Back Exam Back exam: Present: normal inspection, full ROM. Absent: tenderness - Neurological Exam Neurological exam: Present: alert, oriented X3 - Psychiatric Psychiatric exam: Present: normal affect, normal mood - Skin Skin exam: Present: warm, dry, intact, normal color Course Course Narrative: Patient seen and examined. Suicidal ideation. Was just released from her psychiatric floor yesterday. We will medically clear then have psychiatry evaluation. - Reevaluation(s) Reevaluation #1: UA shows signs of UTI. Keflex ordered. Patient was medically cleared. Psychiatry evaluated the patient and decided to admit her. Time: 14:00 Vital Signs Temperature 97.4 F L 07/24/17 09:37 Pulse Rate 92 07/24/17 09:37 Respiratory Rate 17 07/24/17 09:37 Blood Pressure 167/96 07/24/17 09:37 O2 Sat by Pulse Oximetry 94 07/24/17 09:37 Temperature 97.8 F 07/24/17 20:05 Pulse Rate 73 05/17/18 20:05 Respiratory Rate 18 07/24/17 20:05 Blood Pressure 143/71 07/24/17 20:05 O2 Sat by Pulse Oximetry 94 07/24/17 09:37 Oxygen Delivery Oxygen Delivery Room Air Psych - Medical Records Medical records reviewed: Yes I reviewed the patient's medical records. - Lab Data Lab results reviewed: Yes I reviewed the patient's lab results. Result diagrams: 07/24/17 09:52 07/24/17 09:52 Lab Results 07/24/17 07/24/17 07/24/17 Range/Units 09:05 09:52 09:52 WBC 10.5 (4.3-11.1) K/mcL RBC 4.85 (3.82-4.97) M/mcL Hgb 14.3 (11.5-15.4) g/dL Hct 40.5 (35.3-44.9) % MCV 83.5 (83.0-100.0) fL MCH 29.5 (28.0-33.3) pg MCHC 35.3 (31.6-35.5) g/dL RDW 13.7 (11.5-14.5) % Plt Count 303 (140-400) K/mcL MPV 9.8 (9.4-12.4) fL Immature Gran % 0.3 (0-4) % Seg Neutrophils % 75.6 % Lymphocytes % 18.2 % Monocytes % 4.5 % Eosinophils % 0.8 % Basophils % 0.6 % Neutrophils # 7.9 (1.6-8.9) K/mcL Lymphocytes # 1.9 (0.6-4.6) K/mcL Monocytes # 0.5 (0.0-1.3) K/mcL Eosinophils # 0.1 (0.0-0.6) K/mcL Basophils # 0.1 (0.0-0.2) K/mcL Sodium (136-145) mEq/L Potassium (3.5-5.1) mEq/L Chloride (98-107) mEq/L Carbon Dioxide (23-29) mEq/L BUN (8-23) mg/dL Creatinine (0.60-1.20) mg/dL Est GFR ( Amer) (> 60) Est GFR (Non-Af Amer) (> 60) BUN/Creatinine Ratio (6-26) Glucose (70-105) mg/dL Calculated Osmolality (280-300) Calcium (8.6-10.3) mg/dL Urine Color Yellow (Yellow) Urine Clarity Hazy A (Clear) Urine pH 7.0 (5.0-8.0) pH Units Ur Specific [place] 1.015 (1.010-1.025) Urine Protein Trace (Neg-Trace) mg/dL Urine Glucose (UA) Normal (Normal) mg/dL Urine Ketones Negative (Negative) mg/dL Urine Blood Negative (Negative) Urine Nitrite Positive A (Negative) Urine Bilirubin Negative (Negative) Urine Urobilinogen Normal (Normal) mg/dL Ur Leukocyte Esterase Moderate H (Negative) Urine Microscopic RBC 3-5 H (0-3) per hpf Urine Microscopic WBC 30-50 H (0-3) per hpf Ur Squamous Epith Cells Many H (None-Few) per lpf Urine Bacteria Many H (None-Few) per hpf Hyaline Casts None Seen (None-Few) per lpf Salicylates (15.0-30.0) mg/dL Urine Opiates Screen Negative (Ybwhqf=576) ng/mL Acetaminophen (10-20) mcg/mL Ur Barbiturates Screen Negative (Wktcio=502) ng/mL Ur Phencyclidine Scrn Negative (Cutoff=25) ng/mL Ur Amphetamines Screen Negative (Fuwivj=7382) ng/mL U Benzodiazepines Scrn Negative (Sxwbfc=053) ng/mL Urine Cocaine Screen Negative (Cutoff= 300) ng/mL U Marijuana (THC) Screen Negative (Cutoff = 50) ng/mL Ethyl Alcohol (Less than 10) mg/dL 07/24/17 Range/Units 09:52 WBC (4.3-11.1) K/mcL RBC (3.82-4.97) M/mcL Hgb (11.5-15.4) g/dL Hct (35.3-44.9) % MCV (83.0-100.0) fL MCH (28.0-33.3) pg MCHC (31.6-35.5) g/dL RDW (11.5-14.5) % Plt Count (140-400) K/mcL MPV (9.4-12.4) fL Immature Gran % (0-4) % Seg Neutrophils % % Lymphocytes % % Monocytes % % Eosinophils % % Basophils % % Neutrophils # (1.6-8.9) K/mcL Lymphocytes # (0.6-4.6) K/mcL Monocytes # (0.0-1.3) K/mcL Eosinophils # (0.0-0.6) K/mcL Basophils # (0.0-0.2) K/mcL Sodium 138 (136-145) mEq/L Potassium 3.9 (3.5-5.1) mEq/L Chloride 101 (98-107) mEq/L Carbon Dioxide 27 (23-29) mEq/L BUN 17 (8-23) mg/dL Creatinine 0.67 (0.60-1.20) mg/dL Est GFR ( Amer) > 60 (> 60) Est GFR (Non-Af Amer) > 60 (> 60) BUN/Creatinine Ratio 25 (6-26) Glucose 131 H (70-105) mg/dL Calculated Osmolality 289 (280-300) Calcium 9.8 (8.6-10.3) mg/dL Urine Color (Yellow) Urine Clarity (Clear) Urine pH (5.0-8.0) pH Units Ur Specific [place] (1.010-1.025) Urine Protein (Neg-Trace) mg/dL Urine Glucose (UA) (Normal) mg/dL Urine Ketones (Negative) mg/dL Urine Blood (Negative) Urine Nitrite (Negative) Urine Bilirubin (Negative) Urine Urobilinogen (Normal) mg/dL Ur Leukocyte Esterase (Negative) Urine Microscopic RBC (0-3) per hpf Urine Microscopic WBC (0-3) per hpf Ur Squamous Epith Cells (None-Few) per lpf Urine Bacteria (None-Few) per hpf Hyaline Casts (None-Few) per lpf Salicylates < 2.5 L (15.0-30.0) mg/dL Urine Opiates Screen (Uhctyq=643) ng/mL Acetaminophen < 10 L (10-20) mcg/mL Ur Barbiturates Screen (Zxclrz=442) ng/mL Ur Phencyclidine Scrn (Cutoff=25) ng/mL Ur Amphetamines Screen (Htwnxv=2733) ng/mL U Benzodiazepines Scrn (Wvtoxf=975) ng/mL Urine Cocaine Screen (Cutoff= 300) ng/mL U Marijuana (THC) Screen (Cutoff = 50) ng/mL Ethyl Alcohol < 10 (Less than 10) mg/dL Psychiatric Medical Clearance - Medical Clearance Checklist Does the patient have a NEW psychiatric condition?: No Any abnormalities indicating possible medical illness?: Yes (UTI) Any history of medical issues?: Yes Medical History: No Social History Section defined Any abnormal vital signs prior to transfer?: No Current Vitals: Last Vital Signs Temp 97.8 F 07/24/17 20:05 Pulse 73 07/24/17 20:05 Resp 18 07/24/17 20:05 BP 143/71 07/24/17 20:05 Pulse Ox 94 07/24/17 09:37 Is the patient intoxicated or cognitively impaired?: No Psychiatric Lab Panel: Drug Levels and Toxicity 07/24/17 07/24/17 09:52 09:52 Urine Opiates Screen Negative Acetaminophen < 10 L Ur Barbiturates Screen Negative Ur Phencyclidine Scrn Negative Ur Amphetamines Screen Negative U Benzodiazepines Scrn Negative Urine Cocaine Screen Negative U Marijuana (THC) Screen Negative Ethyl Alcohol < 10 Any abnormalities on the physical exam?: No Any abnormal labs?: Yes (UTI) Abnormal Labs: Abnormal lab results Glucose 131 mg/dL (70-105) H 07/24/17 09:52 Folate > 22.3 ng/mL (3.0-16.0) H 07/24/17 13:20 Urine Clarity Hazy (Clear) A 07/24/17 09:05 Urine Nitrite Positive (Negative) A 07/24/17 09:05 Ur Leukocyte Esterase Moderate (Negative) H 07/24/17 09:05 Urine Microscopic RBC 3-5 per hpf (0-3) H 07/24/17 09:05 Urine Microscopic WBC 30-50 per hpf (0-3) H 07/24/17 09:05 Ur Squamous Epith Cells Many per lpf (None-Few) H 07/24/17 09:05 Urine Bacteria Many per hpf (None-Few) H 07/24/17 09:05 Salicylates < 2.5 mg/dL (15.0-30.0) L 07/24/17 09:52 Acetaminophen < 10 mcg/mL (10-20) L 07/24/17 09:52 If abnormals exist; proposed resolution:: keflex Does the patient require durable medical equiptment?: No Is the patient ambulatory?: No Is the patient a fall risk?: No Has the patient been medically cleared?: Yes Any acute medical condition require Tx prior to transfer?: Yes (antibiotics) Statement of Medical Clearance: I have evaluated the patient, reviewed diagnostic information, and certify that the patient's medical condition is sufficiently stable that transfer to the psychiatric unit does not pose a significant risk of deterioration.
[2017-07-24] MEDS ORDERED: *HR* LORazepam 1 MG TABLET PO ONE (11:56)
[2017-07-24] MEDS ORDERED: OLANZapine 5 MG TAB.RAPDIS PO STA (11:56)
[2017-07-24] MEDS ORDERED: *HR* LORazepam 1 MG TABLET PO PRN (12:40)
[2017-07-24] MEDS ORDERED: MOM Conc 10 ML UD.LIQ PO PRN (12:40)
[2017-07-24] MEDS ORDERED: Haloperidol Lactate 5 MG/ML VIAL IM PRN (12:40)
[2017-07-24] MEDS ORDERED: *HR* LORazepam 2 MG/ML VIAL IM PRN (12:40)
[2017-07-24] MEDS ORDERED: traZODone 50 MG TABLET PO PRN (12:40)
[2017-07-24] MEDS ORDERED: Mag Hydrox/Al Hydrox/Simeth 30 ML UDC PO PRN (12:40)
--- NOTE | 2017-07-24 12:50 | Psychiatry History & Physical ---
Date of Encounter: 07/24/17 Time of Encounter: 12:30 History of Present Illness Medicare Admission Attestation: For traditional Medicare patients the provided hospital inpatient services are reasonable and necessary and in the case of services not specified as inpatient -only under 42 CFR 419.22 (n), that they are appropriately provided as inpatient services in accordance 42 CFR 412.3. For Critical [facility] the patient may reasonably be expected to be discharged or transferred to a hospital within 96 hours after admission to the Critical [facility]. Pt is a 71 yo, , female, who presents for anxiety and depression. Pt noted upon discharge pt felt alone and was having nightmares. Pt noted it slowly turned into exacerbation of depression with suicidal ideation to overdose on her "heart medications." Pt noted that she felt scared and agreed to return to the hospital. Pt noted "I feel safe here." Pt agreed to start a new antidepressant mediation due to the exacerbation of anxiety from wellbutrin. Pt agreed to intiate effexor and abilify. Pt was educated on the risks benifits and side-effects of current medications. Pt denied any side effects to current medications. Pt noted she felt safe and comfortable on the unit. Pt was in agreement with treatment plan. Pt noted she slept "a few hours last night.... Pt noted her appetite is better. Pt rated her depression a 10, on a scale of zero to ten with ten being the worst and zero being none. Pt rate her anxiety a "10.much better, on the same scale. Pt denied any auditory or visual hallucinations. Pt denied any thoughts to harm herself or anyone else. No TD noted, AIMS=0 MSE: Alert and Oriented x4 Appearance: neatly groomed dressed in appropriate attire Behavior: friendly, courteous, polite Speech: Fluent, normal tone, normal rate Mood: depressed Affect: mood congruent Thought content: no HI noted, no SI noted, No delusions noted Psychosis: none noted, currently not responding to internal stimuli. Thought Process: Linear coherent goal directed Judgment: questionable. Insight: questionable. 1.Interval hx 2. Start effexor 75 mg PO QAM fo mood 3. Start abilify 2 mg PO QAM for mood 4. Start PRazosin 1 mg PO QHS for nightmares hold if SBP below 100, DBP below 60 or pulse below 60. 5.Continue all other current medications 6.Review current labs 7.Pt had an opportunity to ask questions and discuss current treatment plan. 8.Supportive therapy was provided 9.Pt encouraged to consider group or individual therapy 10.Pt was in agreement with treatment plan. 11.Pt was educated on the risks benefits and side effects of current medications. 12. D/C wellbutrin Admitted From: Emergency Dept Plans for Post Hospital Care: Home History of Present Illness: Ms. Sánchez is a 71 year old female Past Med Surg Social Fam HX - Past Medical History Medical history: diabetes, hypertension - Past Surgical History Surgical History: cholecystectomy - Social History Smoking Status: Never smoker Alcohol use: none Drug use: none Medications & Allergies Diltiazem CD (24hr) [Cardizem CD] 240 mg PO DAILY 07/09/17 [History] Lisinopril [Zestril] 10 mg PO DAILY 07/09/17 [History] Triamterene/HCTZ 37.5/25mg [Dyazide] 1 tab PO DAILY 07/09/17 [History] metFORMIN [Glucophage] 500 mg PO BID 07/09/17 [History] BuPROPion SR (12 HR) [Wellbutrin SR] 150 mg PO DAILY #30 tablet.er 07/23/17 [Rx] Buspirone HCl [Buspar] 5 mg PO TID #90 tablet 07/23/17 [Rx] 3 Allergy/AdvReac Type Severity Reaction Status Date / Time ciprofloxacin [From Cipro] Allergy Anaphylaxis Verified 07/24/17 12:35 Review of Systems Constitutional: Denies: fever, chills, weakness, weight change Eyes: Denies: eye pain, vision change Ears, Nose, Throat: Denies: ear pain, throat pain, dental pain, hearing loss, congestion Cardiovascular: Denies: chest pain, palpitations, dyspnea on exertion Respiratory: Denies: cough, dyspnea, wheezes Gastrointestinal: Denies: abdominal pain, nausea, vomiting, diarrhea, constipation Genitourinary female: Denies: urgency, dysuria, frequency, abnormal menses, dyspareunia Musculoskeletal: Denies: joint swelling, joint pain Integumentary: Denies: rash, lesions, pruritus Neurological: Denies: headache, weakness, numbness, memory loss Psychiatric: Reports: depression, abnormal sleep pattern Endocrine: Denies: fatigue, heat or cold intolerance Hematologic/Lymphatic: Denies: easy bruising, lymphadenopathy Allergic/Immunologic: Denies: urticaria, itchy eyes Exam - Constitutional Vitals: Temp Pulse Resp BP Pulse Ox 97.4 F L 92 17 167/96 94 07/24/17 09:37 07/24/17 09:37 07/24/17 09:37 07/24/17 09:37 07/24/17 09:37 - Psychiatric Patient Orientation: Yes Person, Yes Time, Yes Place Level of alertness: Alert Behavior: calm, cooperative Psychomotor activity: Normal Eye Contact: Maintains Eye Contact Mood Description: Depressed Affect description: congruent with mood Speech Volume: Normal Speech pattern: normal rate, normal rhythm, normal tone, fluent Language & Vocabulary: consistent with education Thought Process: Intact, Logical, Linear, Goal Oriented Thought Content: Yes Suicidal ideation Attention Span Ability: Capable of Focused Attention Memory Description: Grossly Intact Patient Reliability: Reliable Historian Fund of knowledge: Yes average Intelligence Estimate: Average Judgment: Fair Insight: Partial Results - Labs Labs: Laboratory Last Values WBC 10.5 K/mcL (4.3-11.1) 07/24/17 09:52 RBC 4.85 M/mcL (3.82-4.97) 07/24/17 09:52 Hgb 14.3 g/dL (11.5-15.4) 07/24/17 09:52 Hct 40.5 % (35.3-44.9) 07/24/17 09:52 MCV 83.5 fL (83.0-100.0) 07/24/17 09:52 MCH 29.5 pg (28.0-33.3) 07/24/17 09:52 MCHC 35.3 g/dL (31.6-35.5) 07/24/17 09:52 RDW 13.7 % (11.5-14.5) 07/24/17 09:52 Plt Count 303 K/mcL (140-400) 07/24/17 09:52 MPV 9.8 fL (9.4-12.4) 07/24/17 09:52 Immature Gran % 0.3 % (0-4) 07/24/17 09:52 Seg Neutrophils % 75.6 % 07/24/17 09:52 Lymphocytes % 18.2 % 07/24/17 09:52 Monocytes % 4.5 % 07/24/17 09:52 Eosinophils % 0.8 % 07/24/17 09:52 Basophils % 0.6 % 07/24/17 09:52 Neutrophils # 7.9 K/mcL (1.6-8.9) 07/24/17 09:52 Lymphocytes # 1.9 K/mcL (0.6-4.6) 07/24/17 09:52 Monocytes # 0.5 K/mcL (0.0-1.3) 07/24/17 09:52 Eosinophils # 0.1 K/mcL (0.0-0.6) 07/24/17 09:52 Basophils # 0.1 K/mcL (0.0-0.2) 07/24/17 09:52 Sodium 138 mEq/L (136-145) 07/24/17 09:52 Potassium 3.9 mEq/L (3.5-5.1) 07/24/17 09:52 Chloride 101 mEq/L (98-107) 07/24/17 09:52 Carbon Dioxide 27 mEq/L (23-29) 07/24/17 09:52 BUN 17 mg/dL (8-23) 07/24/17 09:52 Creatinine 0.67 mg/dL (0.60-1.20) 07/24/17 09:52 Est GFR ( Amer) > 60 (> 60) 07/24/17 09:52 Est GFR (Non-Af Amer) > 60 (> 60) 07/24/17 09:52 BUN/Creatinine Ratio 25 (6-26) 07/24/17 09:52 Glucose 131 mg/dL (70-105) H 07/24/17 09:52 Calculated Osmolality 289 (280-300) 07/24/17 09:52 Calcium 9.8 mg/dL (8.6-10.3) 07/24/17 09:52 Urine Color Yellow (Yellow) 07/24/17 09:05 Urine Clarity Hazy (Clear) A 07/24/17 09:05 Urine pH 7.0 pH Units (5.0-8.0) 07/24/17 09:05 Ur Specific [place] 1.015 (1.010-1.025) 07/24/17 09:05 Urine Protein Trace mg/dL (Neg-Trace) 07/24/17 09:05 Urine Glucose (UA) Normal mg/dL (Normal) 07/24/17 09:05 Urine Ketones Negative mg/dL (Negative) 07/24/17 09:05 Urine Blood Negative (Negative) 07/24/17 09:05 Urine Nitrite Positive (Negative) A 07/24/17 09:05 Urine Bilirubin Negative (Negative) 07/24/17 09:05 Urine Urobilinogen Normal mg/dL (Normal) 07/24/17 09:05 Ur Leukocyte Esterase Moderate (Negative) H 07/24/17 09:05 Urine Microscopic RBC 3-5 per hpf (0-3) H 07/24/17 09:05 Urine Microscopic WBC 30-50 per hpf (0-3) H 07/24/17 09:05 Ur Squamous Epith Cells Many per lpf (None-Few) H 07/24/17 09:05 Urine Bacteria Many per hpf (None-Few) H 07/24/17 09:05 Hyaline Casts None Seen per lpf (None-Few) 07/24/17 09:05 Salicylates < 2.5 mg/dL (15.0-30.0) L 07/24/17 09:52 Urine Opiates Screen Negative ng/mL (Aybaxw=590) 07/24/17 09:52 Acetaminophen < 10 mcg/mL (10-20) L 07/24/17 09:52 Ur Barbiturates Screen Negative ng/mL (Fimwsc=240) 07/24/17 09:52 Ur Phencyclidine Scrn Negative ng/mL (Cutoff=25) 07/24/17 09:52 Ur Amphetamines Screen Negative ng/mL (Nvycxw=0136) 07/24/17 09:52 U Benzodiazepines Scrn Negative ng/mL (Dspjlp=998) 07/24/17 09:52 Urine Cocaine Screen Negative ng/mL (Cutoff= 300) 07/24/17 09:52 U Marijuana (THC) Screen Negative ng/mL (Cutoff = 50) 07/24/17 09:52 Ethyl Alcohol < 10 mg/dL (Less than 10) 07/24/17 09:52
[2017-07-24 14:31] LABS: Thyroid Stimulating Hormone 1.557 mcIU/mL (0.340-5.600)
[2017-07-24 14:34] LABS: Triiodothyronine (T3) Free 3.3 pg/mL (2.50-3.90)
[2017-07-24 14:36] LABS: Folate > 22.3 ng/mL (3.0-16.0); Vitamin B12 619 pg/mL (250-1100)
[2017-07-24 14:38] LABS: Triiodothyronine (T3) Total 1.09 ng/mL (0.87-1.78)
[2017-07-25] MEDS: ARIPiprazole 2 MG TABLET PO SCH (09:29)
[2017-07-25] MEDS: *HR* Metformin 500 MG TABLET PO SCH ×2 (09:29→16:08)
[2017-07-25] MEDS: Diltiazem CD (24hr) 240 MG CAPSULE PO SCH (09:30)
--- NOTE | 2017-07-25 20:26 | Psychiatry Progress Note ---
Date of Encounter: 07/25/17 Time of Encounter: 20:00 Subjective Interval history: Pt is a 71 yo, , female, who presents for anxiety and depression. Pt noted upon discharge pt felt alone and was having nightmares. Pt noted she is doing "pretty good today." Pt agreed to continue effexor and abilify. Pt was educated on the risks benifits and side-effects of current medications. Pt denied any side effects to current medications. Pt noted she felt safe and comfortable on the unit. Pt was in agreement with treatment plan. Pt noted she slept "a few hours last night.... Pt noted her appetite is better. Pt rated her depression a 9, on a scale of zero to ten with ten being the worst and zero being none. Pt rate her anxiety a "7, on the same scale. Pt denied any auditory or visual hallucinations. Pt denied any thoughts to harm herself or anyone else. No TD noted, AIMS=0 MSE: Alert and Oriented x4 Appearance: neatly groomed dressed in appropriate attire Behavior: friendly, courteous, polite Speech: Fluent, normal tone, normal rate Mood: depressed Affect: mood congruent Thought content: no HI noted, no SI noted, No delusions noted Psychosis: none noted, currently not responding to internal stimuli. Thought Process: Linear coherent goal directed Judgment: questionable. Insight: questionable. 1.Interval hx 2. Continue all other current medications 3.Review current labs 4.Pt had an opportunity to ask questions and discuss current treatment plan. 5.Supportive therapy was provided 6.Pt encouraged to consider group or individual therapy 7.Pt was in agreement with treatment plan. 8.Pt was educated on the risks benefits and side effects of current medications and treatment plan, pt was in agreement. Review of Systems Constitutional: Denies: fever, chills, weakness, weight change Eyes: Denies: eye pain, vision change Ears, Nose, Throat: Denies: ear pain, throat pain, dental pain, hearing loss, congestion Cardiovascular: Denies: chest pain, palpitations, dyspnea on exertion Respiratory: Denies: cough, dyspnea, wheezes Gastrointestinal: Denies: abdominal pain, nausea, vomiting, diarrhea, constipation Musculoskeletal: Denies: joint swelling, joint pain Neurological: Denies: headache, weakness, numbness, memory loss Psychiatric: Reports: depression, abnormal sleep pattern Results - Vital Signs Vital Signs: Temp Pulse Resp BP Pulse Ox 98.0 F 69 18 124/60 94 07/25/17 20:17 07/25/17 20:17 07/25/17 20:17 07/25/17 20:17 07/24/17 09:37 - Labs Labs: Laboratory Results - last 24 hr 07/25/17 16:07 POC Glucose 100 H Assessment and Plan (1) Suicidal ideation Current visit: Yes Status: Acute Plan: Continue hospitalization, Secure weapons, Family/Supportive other meeting Risks, benefits, side effects, alternatives discussed w/pt: Yes Patient agreeable to treatment: Yes (2) Major depressive disorder, recurrent Current visit: Yes Status: Acute Plan: Continue hospitalization Risks, benefits, side effects, alternatives discussed w/pt: Yes Patient agreeable to treatment: Yes Qualifiers: Active/Remission status: currently active Major depression episode severity : severe Psychotic features: without psychotic features Qualified Code(s): F33.2 - Major depressive disorder, recurrent severe without psychotic features (3) Anxiety Current visit: Yes Status: Acute Plan: Continue hospitalization Risks, benefits, side effects, alternatives discussed w/pt: Yes Patient agreeable to treatment: Yes Consult Discharge Plan - Plan Referrals: [facility] [Outside] - 09/18/17 10:40 am (The above appointment is with Dr. Natalie De Leon for outpatient psychiatric assessment and medication management services. Please arrive 10 minutes early to complete the check-in process. Please bring your insurance card (or [facility]) and photo ID. If you are unable to keep this appointment, 24 hour business notice of cancellation is expected. If you miss your new patient appointment with any provider without providing appropriate notice, you cannot be re-scheduled for that service. The above appointment(s) reflects first availability. You may contact the office regularly to check for cancellations that may allow you to be seen sooner. The [facility] is the 1st building behind [facility] in [place], [place]. Please do not use GPS or mapping apps to locate the office, as they will take you to the wrong location. ) Cricket Duckworth, PhD [Outside] - 07/30/17 3:00 pm (The above appointment is with Cricket Duckworth, PhD for outpatient mental health counseling services. This is the first available appointment. Dr. Duckworth will contact you if he has any cancellations that would allow you to be seen sooner. Your co-pay per visit will be $40. You may pay in smith, check or money order.) Janeth Crabtree CNP [Partnered Physician] - 08/01/17 2:00 pm (The above appointment is with Dr. Hinton' nurse practitioner, Janeth Crabtree, for primary health care and medication management services. Please arrive 10 minutes early to complete the check-in process. Please also bring your insurance card (or [facility]), photo ID, and all medications in their original bottles to this appointment. If you are unable to keep this appointment, 24 hour business notice of cancellation is expected. The above appointment(s) reflects first availability. You may contact the office regularly to check for cancellations that may allow you to be seen sooner.) Psychiatry Exam - Constitutional Vitals: Temp Pulse Resp BP Pulse Ox 98.0 F 69 18 124/60 94 07/25/17 20:17 07/25/17 20:17 07/25/17 20:17 07/25/17 20:17 07/24/17 09:37 General appearance: age & developmentally appropriate, well-groomed, well- nourished - Musculoskeletal Gait: normal Station: relaxed Strength & Tone: normal for patient - Psychiatric Patient Orientation: Yes Person, Yes Time, Yes Place Level of alertness: Alert Behavior: calm, cooperative Psychomotor activity: Normal Eye Contact: Maintains Eye Contact Mood Description: Euthymic/stable, Depressed Affect description: congruent with mood, flat Speech Volume: Normal Speech pattern: normal rate, normal rhythm, normal tone, fluent, spontaneous Language & Vocabulary: consistent with education Thought Process: Linear, Goal Oriented Thought Content: Yes Suicidal ideation, No Homicidal ideation, No Overt delusions Perceptual Disturbances: No Auditory hallucinations, No Visual hallucinations Attention Span Ability: Capable of Focused Attention Memory Description: Grossly Intact Patient Reliability: Reliable Historian Fund of knowledge: Yes abstraction ability, Yes aware of current events Intelligence Estimate: Average Judgment: Limited Insight: Partial
[2017-07-26] MEDS: ARIPiprazole 2 MG TABLET PO SCH (08:41)
[2017-07-26] MEDS: *HR* Metformin 500 MG TABLET PO SCH ×2 (08:41→17:30)
[2017-07-26] MEDS: Diltiazem CD (24hr) 240 MG CAPSULE PO SCH (08:42)
--- NOTE | 2017-07-26 10:20 | Psychiatry Progress Note ---
Date of Encounter: 07/26/17 Time of Encounter: 10:07 Subjective Interval history: Patient i a 71y/o female, , lives with 26y/o grandson with h/o of depression and anxiety,h/o multiple inpatient hospitalizations readmitted after a ay following 10days of admission on account of feeling depressed and suicidal with a plan and intent to overdose on pills. Patient was discussed by a multidisciplinary treatment. There were no reported behavioral issues or incident overnight. She was seen this morning in the office and was calm, cooperative and well related. She reported feeling overwhelmed at home by everything after her last d/c from the hospital. She denied any ongoing stressors. She stated she did not feel ready before her last d/c but could not tell the Dr. She is still not doing well and rated her depression 9/10 and anxiety 4/1. Patient continues to endorse SI with no plan or intent. She is compliant with her medications and denied any side effects. She reported excessive sleeping , anhedonia, lack of motivation and energy level. On review of symptoms, she denied any mood or psychosis symptoms including AH/VH/HI. She also reported improvement in nightmares since she was started on Prazosin. I plan to increase Abilify to 5mg daily and continue with her other medications. Review of Systems Constitutional: Denies: fever, chills, weakness, weight change Eyes: Denies: eye pain, vision change Ears, Nose, Throat: Denies: ear pain, throat pain, dental pain, hearing loss, congestion Cardiovascular: Denies: chest pain, palpitations, dyspnea on exertion Respiratory: Denies: cough, dyspnea, wheezes Gastrointestinal: Denies: abdominal pain, nausea, vomiting, diarrhea, constipation Musculoskeletal: Denies: joint swelling, joint pain Neurological: Denies: headache, weakness, numbness, memory loss Psychiatric: Reports: depression, anxiety, abnormal sleep pattern, suicidal ideation, hopelessness, other Results - Vital Signs Vital Signs: Temp Pulse Resp BP Pulse Ox 97.7 F 71 18 132/68 94 07/26/17 09:00 07/26/17 09:00 07/26/17 09:00 07/26/17 09:00 07/24/17 09:37 - Labs Labs: Laboratory Results - last 24 hr 07/25/17 07/25/17 07/26/17 16:07 21:07 08:18 POC Glucose 100 H 113 H 110 H Assessment and Plan (1) Suicidal ideation Current visit: Yes Status: Acute Risks, benefits, side effects, alternatives discussed w/pt: Yes Patient agreeable to treatment: Yes (2) Major depressive disorder, recurrent Current visit: Yes Status: Acute Risks, benefits, side effects, alternatives discussed w/pt: Yes Patient agreeable to treatment: Yes Qualifiers: Active/Remission status: currently active Major depression episode severity : severe Psychotic features: without psychotic features Qualified Code(s): F33.2 - Major depressive disorder, recurrent severe without psychotic features (3) Anxiety Current visit: Yes Status: Acute Risks, benefits, side effects, alternatives discussed w/pt: Yes Patient agreeable to treatment: Yes Consult Discharge Plan - Plan Referrals: [facility] [Outside] - 09/18/17 10:40 am (The above appointment is with Dr. Natalie De Leon for outpatient psychiatric assessment and medication management services. Please arrive 10 minutes early to complete the check-in process. Please bring your insurance card (or [facility]) and photo ID. If you are unable to keep this appointment, 24 hour business notice of cancellation is expected. If you miss your new patient appointment with any provider without providing appropriate notice, you cannot be re-scheduled for that service. The above appointment(s) reflects first availability. You may contact the office regularly to check for cancellations that may allow you to be seen sooner. The [facility] is the [address] [place] [address] behind [facility] in [place], [place]. Please do not use GPS or mapping apps to locate the office, as they will take you to the wrong location. ) Cricket Duckworth, PhD [Outside] - 07/30/17 3:00 pm (The above appointment is with Cricket Duckworth, PhD for outpatient mental health counseling services. This is the first available appointment. Dr. Duckworth will contact you if he has any cancellations that would allow you to be seen sooner. Your co-pay per visit will be $40. You may pay in smith, check or money order.) Janeth Crabtree CNP [Partnered Physician] - 08/01/17 2:00 pm (The above appointment is with Dr. Hinton' nurse practitioner, Janeth Crabtree, for primary health care and medication management services. Please arrive 10 minutes early to complete the check-in process. Please also bring your insurance card (or [facility]), photo ID, and all medications in their original bottles to this appointment. If you are unable to keep this appointment, 24 hour business notice of cancellation is expected. The above appointment(s) reflects first availability. You may contact the office regularly to check for cancellations that may allow you to be seen sooner.) Psychiatry Exam - Constitutional Vitals: Temp Pulse Resp BP Pulse Ox 97.7 F 71 18 132/68 94 07/26/17 09:00 07/26/17 09:00 07/26/17 09:00 07/26/17 09:00 07/24/17 09:37 General appearance: age & developmentally appropriate - Musculoskeletal Gait: slow Station: other Strength & Tone: normal for patient - Psychiatric Patient Orientation: Yes Person, Yes Time, Yes Place, Yes Circumstance Level of alertness: Alert Behavior: calm, cooperative Psychomotor activity: Slowed Eye Contact: Maintains Eye Contact Mood Description: Depressed Affect description: labile Speech Volume: Soft/Quiet Speech pattern: normal rate, normal rhythm, normal tone Language & Vocabulary: consistent with education Thought Process: Logical, Goal Oriented Thought Content: Yes Suicidal ideation Perceptual Disturbances: Yes Reacting to internal stimuli Attention Span Ability: Capable of Focused Attention Memory Description: Grossly Intact Patient Reliability: Reliable Historian Fund of knowledge: Yes average Intelligence Estimate: Average Judgment: Poor Insight: Minimal
[2017-07-26] MEDS: ARIPiprazole 5 MG TABLET PO SCH (21:00)
[2017-07-27] MEDS: Diltiazem CD (24hr) 240 MG CAPSULE PO SCH (09:16)
[2017-07-27] MEDS: *HR* Metformin 500 MG TABLET PO SCH ×2 (09:16→17:39)
--- NOTE | 2017-07-27 11:35 | Psychiatry Progress Note ---
Date of Encounter: 07/27/17 Time of Encounter: 11:00 Subjective Interval history: Patient i a 71y/o female, , lives with 26y/o grandson with h/o of depression and anxiety,h/o multiple inpatient hospitalizations readmitted after a ay following 10days of admission on account of feeling depressed and suicidal with a plan and intent to overdose on pills. Interval Hx: Patient was discussed by a multidisciplinary treatment. There were no reported behavioral issues or incident overnight. She was seen this morning in the office and was calm, cooperative. She reported minimal improvement in her symptoms and still feels depressed and suicidal. Patient continue to rate her depression 9/10 and anxiety 4/10. She denied any plans or intent to harm self and stated "I want help and just want to feel better before I'm released" She is compliant with her medications and denied any side effects. She reported excessive sleeping ,anhedonia, lack of motivation and energy level. On review of symptoms, she denied any mood or psychosis symptoms including AH/VH/HI. Review of Systems Constitutional: Denies: fever, chills, weakness, weight change Eyes: Denies: eye pain, vision change Ears, Nose, Throat: Denies: ear pain, throat pain, dental pain, hearing loss, congestion Cardiovascular: Denies: chest pain, palpitations, dyspnea on exertion Respiratory: Denies: cough, dyspnea, wheezes Gastrointestinal: Denies: abdominal pain, nausea, vomiting, diarrhea, constipation Musculoskeletal: Denies: joint swelling, joint pain Neurological: Denies: headache, weakness, numbness, memory loss Psychiatric: Reports: depression, anxiety, abnormal sleep pattern, suicidal ideation, hopelessness, other Results - Vital Signs Vital Signs: Temp Pulse Resp BP Pulse Ox 97.7 F 69 16 111/73 94 07/26/17 20:15 07/27/17 08:24 07/27/17 08:24 07/27/17 08:24 07/24/17 09:37 - Labs Labs: Laboratory Results - last 24 hr 07/26/17 07/27/17 20:51 08:31 POC Glucose 93 99 Assessment and Plan (1) Suicidal ideation Current visit: Yes Status: Acute Risks, benefits, side effects, alternatives discussed w/pt: Yes Patient agreeable to treatment: Yes (2) Major depressive disorder, recurrent Current visit: Yes Status: Acute Risks, benefits, side effects, alternatives discussed w/pt: Yes Patient agreeable to treatment: Yes Qualifiers: Active/Remission status: currently active Major depression episode severity : severe Psychotic features: without psychotic features Qualified Code(s): F33.2 - Major depressive disorder, recurrent severe without psychotic features (3) Anxiety Current visit: Yes Status: Acute Risks, benefits, side effects, alternatives discussed w/pt: Yes Patient agreeable to treatment: Yes Consult Discharge Plan - Plan Referrals: [facility] [Outside] - 09/18/17 10:40 am (The above appointment is with Dr. Natalie De Leon for outpatient psychiatric assessment and medication management services. Please arrive 10 minutes early to complete the check-in process. Please bring your insurance card (or [employer] award letter) and photo ID. If you are unable to keep this appointment, 24 hour business notice of cancellation is expected. If you miss your new patient appointment with any provider without providing appropriate notice, you cannot be re-scheduled for that service. The above appointment(s) reflects first availability. You may contact the office regularly to check for cancellations that may allow you to be seen sooner. The [facility] is the [facility] in [place], [place]. Please do not use GPS or mapping apps to locate the office, as they will take you to the wrong location. ) Cricket Duckworth, PhD [Outside] - 07/30/17 3:00 pm (The above appointment is with Cricket Duckworth, PhD for outpatient mental health counseling services. This is the first available appointment. Dr. Duckworth will contact you if he has any cancellations that would allow you to be seen sooner. Your co-pay per visit will be $40. You may pay in smith, check or money order.) Janeth Crabtree CNP [Partnered Physician] - 08/01/17 2:00 pm (The above appointment is with Dr. Hinton' nurse practitioner, Janeth Crabtree, for primary health care and medication management services. Please arrive 10 minutes early to complete the check-in process. Please also bring your insurance card (or HCAP award letter), photo ID, and all medications in their original bottles to this appointment. If you are unable to keep this appointment, 24 hour business notice of cancellation is expected. The above appointment(s) reflects first availability. You may contact the office regularly to check for cancellations that may allow you to be seen sooner.) Psychiatry Exam - Constitutional Vitals: Temp Pulse Resp BP Pulse Ox 97.7 F 69 16 111/73 94 07/26/17 20:15 07/27/17 08:24 07/27/17 08:24 07/27/17 08:24 07/24/17 09:37 General appearance: age & developmentally appropriate - Musculoskeletal Gait: normal Station: relaxed Strength & Tone: normal for patient - Psychiatric Patient Orientation: Yes Person, Yes Place, Yes Circumstance Level of alertness: Alert Behavior: calm, cooperative Psychomotor activity: Slowed Eye Contact: Maintains Eye Contact Mood Description: Depressed Affect description: blunted Speech Volume: Normal Speech pattern: normal rate, normal rhythm, normal tone, fluent, spontaneous Language & Vocabulary: consistent with education Thought Process: Logical, Goal Oriented Thought Content: Yes Suicidal ideation Perceptual Disturbances: No Auditory hallucinations, No Visual hallucinations Attention Span Ability: Capable of Focused Attention Memory Description: Grossly Intact Patient Reliability: Reliable Historian Fund of knowledge: Yes average Intelligence Estimate: Average Judgment: Limited Insight: Minimal
[2017-07-27] MEDS: ARIPiprazole 5 MG TABLET PO SCH (21:14)
[2017-07-28] MEDS: *HR* Metformin 500 MG TABLET PO SCH ×2 (08:27→16:55)
[2017-07-28] MEDS: Diltiazem CD (24hr) 240 MG CAPSULE PO SCH (08:28)
--- NOTE | 2017-07-28 14:54 | Psychiatry Progress Note ---
Date of Encounter: 07/28/17 Time of Encounter: 13:33 Subjective Interval history: The patient is a 71-year-old white female. She goes by the name of Sharmaine. Chief complaint "I was not ready to go home. History of present illness. The patient was previously hospitalized but had a 45 year period of good health and function. At age 21 she developed depressed and was suicidal. She was hospitalized at [facility] for a few months. The patient had 3 pregnancies and into of them she was hospitalized at a [facility] for several months. She cannot recall exactly how long but on 1 hospitalization she had her baby had a depression and came out when her baby was 5 months. Patient did not receive electroconvulsive therapy during that time she was not placed on lithium. She was tried on several antidepressants can only recall Elavil and imipramine. Eventually she got better and got help for. 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 Her was a developed a variety of conditions including diabetes and noncompliance and she continued take care of even through the amputation leg. At the time that he was being evaluated for a long disorder he had a bronchoscopy and stopped breathing. He had to have artificial respiration and she was told that he would not survive the code. 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 This occurred 7 years ago when she reports some sadness about this but then about one year ago the patient's son tushar was involved with marijuana and in a fatal car accident. The patient has last worked in 2009 she is retired. She also had a knee surgery on the left knee and could not go upstairs so was medically retired. Depressive symptoms include low self-esteem diminished interest guilt low energy decreased concentration trouble with attention increased appetite and increased sleep. She has suicidal ideation she has thoughts of cutting her wrist and thoughts of taking an overdose. Her brief stay at home was associated with anhedonia her grandson and her son identified her as not better. The patient has declined a family meeting. Past medical history significant for gallbladder surgery left knee replacement illnesses include hypertension diabetes type 2 arthritis. The allergies include ciprofloxacin. The patient's medicines are listed she tries to avoid when necessary Naprosyn. The family history is negative for psychiatric illness drug abuse alcohol and suicide. Review of systems is significant for snoring. Review of Systems Cardiovascular: Reports: other Psychiatric: Reports: depression, anxiety, abnormal sleep pattern, suicidal ideation, hopelessness, other Results - Vital Signs Vital Signs: Temp Pulse Resp BP Pulse Ox 97.7 F 63 16 115/66 94 07/28/17 10:42 07/28/17 10:42 07/28/17 10:42 07/28/17 10:42 07/24/17 09:37 Assessment and Plan (1) Major depressive disorder, recurrent severe without psychotic features Current visit: Yes Status: Acute Plan: Continue hospitalization, Close observation, Suicide Precautions per unit protocol, Encourage participation in unit milieu, Monitor sleep, Monitor appetite, Secure weapons Risks, benefits, side effects, alternatives discussed w/pt: Yes Patient agreeable to treatment: Yes Consult Discharge Plan - Plan Referrals: [facility] [Outside] - 09/18/17 10:40 am (The above appointment is with Dr. Natalie De Leon for outpatient psychiatric assessment and medication management services. Please arrive 10 minutes early to complete the check-in process. Please bring your insurance card (or [facility] award letter) and photo ID. If you are unable to keep this appointment, 24 hour business notice of cancellation is expected. If you miss your new patient appointment with any provider without providing appropriate notice, you cannot be re-scheduled for that service. The above appointment(s) reflects first availability. You may contact the office regularly to check for cancellations that may allow you to be seen sooner. The [facility] is the [facility] in [place], [place]. Please do not use GPS or mapping apps to locate the office, as they will take you to the wrong location. ) Cricket Duckworth, PhD [Outside] - 07/30/17 3:00 pm (The above appointment is with Cricket Duckworth, PhD for outpatient mental health counseling services. This is the first available appointment. Dr. Duckworth will contact you if he has any cancellations that would allow you to be seen sooner. Your co-pay per visit will be $40. You may pay in smith, check or money order.) Janeth Crabtree CNP [Partnered Physician] - 08/01/17 2:00 pm (The above appointment is with Dr. Eckerty' nurse practitioner, Janeth Crabtree, for primary health care and medication management services. Please arrive 10 minutes early to complete the check-in process. Please also bring your insurance card (or [employer] award letter), photo ID, and all medications in their original bottles to this appointment. If you are unable to keep this appointment, 24 hour business notice of cancellation is expected. The above appointment(s) reflects first availability. You may contact the office regularly to check for cancellations that may allow you to be seen sooner.) Psychiatry Exam - Constitutional Vitals: Temp Pulse Resp BP Pulse Ox 97.7 F 63 16 115/66 94 07/28/17 10:42 07/28/17 10:42 07/28/17 10:42 07/28/17 10:42 07/24/17 09:37 General appearance: age & developmentally appropriate, well-groomed, well- nourished - Musculoskeletal Gait: slow Station: stooped Strength & Tone: normal for patient - Psychiatric Patient Orientation: Yes Person, Yes Time, Yes Place Level of alertness: Alert Behavior: cooperative Psychomotor activity: Slowed Eye Contact: Infrequent Blinking Mood Description: Depressed Affect description: constricted, dysphoric Speech Volume: Normal Speech pattern: slowed Language & Vocabulary: consistent with education Thought Process: Intact Thought Content: Yes Suicidal ideation, Yes Obsessive thoughts Attention Span Ability: Capable of Focused Attention Memory Description: Grossly Intact Patient Reliability: Reliable Historian Fund of knowledge: Yes abstraction ability Intelligence Estimate: Above Avergage Judgment: Limited Insight: Minimal (omega sign, no delusions of guilt poveryt or sinfulness, no schniederaian symptoms)
[2017-07-28] MEDS: ARIPiprazole 5 MG TABLET PO SCH (21:07)
[2017-07-29] MEDS: *HR* Metformin 500 MG TABLET PO SCH ×2 (08:06→16:31)
[2017-07-29] MEDS: Venlafaxine XR (24 HR) 150 MG CAP.ER.24H PO SCH (08:50)
[2017-07-29] MEDS: Diltiazem CD (24hr) 240 MG CAPSULE PO SCH (08:50)
--- NOTE | 2017-07-29 14:56 | Psychiatry Progress Note ---
Date of Encounter: 07/29/17 Time of Encounter: 14:45 Subjective Interval history: The patient is a 71-year-old female. She is seen for follow-up her chief complaint is I am not ready yet. History of present illness the patient is presented with several episodes of depression. At age 21 at age 24 and age 27. These episodes lasted from 3-5 months by her report. It is not clear how long this episode of depression has lasted but at least 1 month. She is failed to respond to the initial antidepressant treatment. She has tolerated Effexor but feels a little bit tired. She asked if there was a medical cause to her depression but when asked whether she wanted plan lara or do something enjoyable she indicated that she was no longer interested in this. I discussed by partial hospitalization with the patient but she indicates that she does not drive. She would like to get better but would like to be better before she is discharged from the hospital. I discussed the lowest level of care least restrictive environment. The patient is distressed by the probate hearing because of her suicidal ideation with high risk factors for completed suicide I felt it was necessary to have this hearing. The patient is not asking to leave the hospital and her continued stay is part of the area of concern. We did discuss several other options including amphetamine lithium Abilify and Reexulti augmentation Review of Systems Psychiatric: Reports: depression, anxiety, abnormal sleep pattern, suicidal ideation, change in appetite, difficulty concentrating, hopelessness, other Results - Vital Signs Vital Signs: Temp Pulse Resp BP Pulse Ox 97.9 F 80 16 123/82 94 07/28/17 21:00 07/29/17 09:00 07/29/17 09:00 07/29/17 09:00 07/24/17 09:37 - Labs Labs: Laboratory Results - last 24 hr 07/28/17 07/29/17 16:49 08:02 POC Glucose 94 90 Assessment and Plan (1) Major depressive disorder, recurrent severe without psychotic features Current visit: Yes Status: Acute Plan: Continue hospitalization, Close observation, Suicide Precautions per unit protocol, Encourage participation in unit milieu, Group Therapy, Monitor sleep, Monitor appetite, Secure weapons Risks, benefits, side effects, alternatives discussed w/pt: Yes Patient agreeable to treatment: Yes Consult Discharge Plan - Plan Referrals: [facility] [Outside] - 09/18/17 10:40 am (The above appointment is with Dr. Natalie De Leon for outpatient psychiatric assessment and medication management services. Please arrive 10 minutes early to complete the check-in process. Please bring your insurance card (or [employer] award letter) and photo ID. If you are unable to keep this appointment, 24 hour business notice of cancellation is expected. If you miss your new patient appointment with any provider without providing appropriate notice, you cannot be re-scheduled for that service. The above appointment(s) reflects first availability. You may contact the office regularly to check for cancellations that may allow you to be seen sooner. The [facility] is the 1st building behind [facility] in [place], [place]. Please do not use GPS or mapping apps to locate the office, as they will take you to the wrong location. ) Cricket Duckworth, PhD [Outside] - 07/30/17 3:00 pm (The above appointment is with Cricket Duckworth, PhD for outpatient mental health counseling services. This is the first available appointment. Dr. Duckworth will contact you if he has any cancellations that would allow you to be seen sooner. Your co-pay per visit will be $40. You may pay in smith, check or money order.) Janeth Crabtree CNP [Partnered Physician] - 08/01/17 2:00 pm (The above appointment is with Dr. Hinton' nurse practitioner, Janeth Crabtree, for primary health care and medication management services. Please arrive 10 minutes early to complete the check-in process. Please also bring your insurance card (or [employer] award letter), photo ID, and all medications in their original bottles to this appointment. If you are unable to keep this appointment, 24 hour business notice of cancellation is expected. The above appointment(s) reflects first availability. You may contact the office regularly to check for cancellations that may allow you to be seen sooner.) Psychiatry Exam - Constitutional Vitals: Temp Pulse Resp BP Pulse Ox 97.9 F 80 16 123/82 94 07/28/17 21:00 07/29/17 09:00 07/29/17 09:00 07/29/17 09:00 07/24/17 09:37 General appearance: age & developmentally appropriate, thin - Musculoskeletal Gait: normal, slow Station: other Strength & Tone: normal for patient - Psychiatric Patient Orientation: Yes Person, Yes Time, Yes Place, Yes Circumstance Level of alertness: Alert Behavior: nervous, anxious Psychomotor activity: Slowed Eye Contact: Maintains Eye Contact Mood Description: Depressed Affect description: constricted, dysphoric Speech Volume: Normal Speech pattern: slowed Language & Vocabulary: consistent with education, limited Thought Process: Intact Thought Content: Yes Intact Attention Span Ability: Capable of Focused Attention Memory Description: Grossly Intact Patient Reliability: Reliable Historian Fund of knowledge: Yes abstraction ability Intelligence Estimate: Above Avergage Judgment: Limited Insight: Minimal (some lack of reactivity)
[2017-07-29] MEDS: ARIPiprazole 5 MG TABLET PO SCH (20:24)
[2017-07-30] MEDS: *HR* Metformin 500 MG TABLET PO SCH ×2 (08:37→18:41)
[2017-07-30] MEDS: Diltiazem CD (24hr) 240 MG CAPSULE PO SCH (09:56)
[2017-07-30] MEDS: Venlafaxine XR (24 HR) 150 MG CAP.ER.24H PO SCH (09:56)
--- NOTE | 2017-07-30 13:35 | Psychiatry Progress Note ---
Date of Encounter: 07/30/17 Time of Encounter: 13:15 Subjective Interval history: The patient has minimal improvement. Today she reports that she does not like a treatment plan involving the local [facility] for partial hospitalization. The patient has tolerated Abilify 5 mg on metformin for her diabetes. She is tolerating the Effexor 150 mg. The patient is willing to increase the BuSpar to 10 mg 3 times a day. She still does not feel that she is ready and has previously had suicidal ideation and plan. She is upset with the possibility of having a probate hearing tomorrow. Nonetheless she recognized the necessity as she is recognizing the the hospitalization. She feels somewhat despondent about her treatment and is pessimistic. When asked about rigid traits she did identify several.. 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 She is now advocating for her treatment of her own illness and mental illness. When asked about a family meeting she declined she said that she did not want to bother children and she notes that she does not drive and does not want them to have to transport her Review of Systems Psychiatric: Reports: depression, anxiety, abnormal sleep pattern, suicidal ideation, change in appetite, difficulty concentrating, hopelessness, irritability, other Results - Vital Signs Vital Signs: Temp Pulse Resp BP Pulse Ox 97.4 F L 63 16 134/68 94 07/29/17 20:06 07/30/17 09:25 07/30/17 09:25 07/30/17 09:25 07/24/17 09:37 - Labs Labs: Laboratory Results - last 24 hr 07/30/17 07:55 POC Glucose 105 H Assessment and Plan (1) Major depressive disorder, recurrent severe without psychotic features Current visit: Yes Status: Acute Plan: Continue hospitalization, Close observation, Suicide Precautions per unit protocol, Encourage participation in unit milieu, Group Therapy, Monitor sleep Risks, benefits, side effects, alternatives discussed w/pt: Yes Patient agreeable to treatment: Yes Consult Discharge Plan - Plan Referrals: [facility] [Outside] - 09/18/17 10:40 am (The above appointment is with Dr. Natalie De Leon for outpatient psychiatric assessment and medication management services. Please arrive 10 minutes early to complete the check-in process. Please bring your insurance card (or [facility]) and photo ID. If you are unable to keep this appointment, 24 hour business notice of cancellation is expected. If you miss your new patient appointment with any provider without providing appropriate notice, you cannot be re-scheduled for that service. The above appointment(s) reflects first availability. You may contact the office regularly to check for cancellations that may allow you to be seen sooner. The [facility] is the 1st building behind [facility] in [place], [place]. Please do not use GPS or mapping apps to locate the office, as they will take you to the wrong location. ) Cricket Duckworth, PhD [Outside] - 07/30/17 3:00 pm (The above appointment is with Cricket Duckworth, PhD for outpatient mental health counseling services. This is the first available appointment. Dr. Duckworth will contact you if he has any cancellations that would allow you to be seen sooner. Your co-pay per visit will be $40. You may pay in smith, check or money order.) Janeth Crabtree CNP [Partnered Physician] - 08/01/17 2:00 pm (The above appointment is with Dr. Hinton' nurse practitioner, Janteh Crabtree, for primary health care and medication management services. Please arrive 10 minutes early to complete the check-in process. Please also bring your insurance card (or [facility]), photo ID, and all medications in their original bottles to this appointment. If you are unable to keep this appointment, 24 hour business notice of cancellation is expected. The above appointment(s) reflects first availability. You may contact the office regularly to check for cancellations that may allow you to be seen sooner.) Psychiatry Exam - Constitutional Vitals: Temp Pulse Resp BP Pulse Ox 97.4 F L 63 16 134/68 94 07/29/17 20:06 07/30/17 09:25 07/30/17 09:25 07/30/17 09:25 07/24/17 09:37 General appearance: age & developmentally appropriate, well-groomed, well- nourished - Musculoskeletal Gait: normal Station: stiff Strength & Tone: normal for patient - Psychiatric Patient Orientation: Yes Person, Yes Time, Yes Place Level of alertness: Alert Behavior: anxious Psychomotor activity: Normal Eye Contact: Prolonged Contact Mood Description: Depressed, Irritable Affect description: congruent with mood Speech Volume: Soft/Quiet Speech pattern: Inappropriate to situation, inappropriate to situation Language & Vocabulary: consistent with education Thought Process: Intact Thought Content: Yes Suicidal ideation Attention Span Ability: Capable of Focused Attention Memory Description: Grossly Intact Patient Reliability: Reliable Historian Fund of knowledge: Yes below average Intelligence Estimate: Above Avergage Judgment: Fair Insight: Partial
[2017-07-30] MEDS: ARIPiprazole 5 MG TABLET PO SCH (20:40)
[2017-07-31] MEDS: Diltiazem CD (24hr) 240 MG CAPSULE PO SCH (08:35)
[2017-07-31] MEDS: Venlafaxine XR (24 HR) 150 MG CAP.ER.24H PO SCH (08:36)
[2017-07-31] MEDS: *HR* Metformin 500 MG TABLET PO SCH ×2 (08:36→16:40)
--- NOTE | 2017-07-31 09:51 | Psychiatry Progress Note ---
Date of Encounter: 07/31/17 Time of Encounter: 09:30 Subjective Interval history: Patient has been sleepy this am. She did not sleep at night. She has tolerated the Effexor. She agreed to the increase in Buspar. She has bee non Abilify. She has diabetes but is well controlled. She agreed to Lipid panel and TSH to check thyroid. today, she has hearing and is apprehnsive about hit, but like ot get better and eventually go home. She lives with grandson. She notes that the grandson works late. he is often out of the home. Review of Systems Psychiatric: Reports: depression, anxiety, abnormal sleep pattern, suicidal ideation, change in appetite, difficulty concentrating, hopelessness, irritability, other Results - Vital Signs Vital Signs: Temp Pulse Resp BP Pulse Ox 98.0 F 66 18 145/77 94 07/30/17 20:56 07/30/17 20:56 07/30/17 20:56 07/30/17 20:56 07/24/17 09:37 - Labs Labs: Laboratory Results - last 24 hr 07/31/17 08:11 POC Glucose 100 H Assessment and Plan (1) Major depressive disorder, recurrent severe without psychotic features Current visit: Yes Status: Acute Risks, benefits, side effects, alternatives discussed w/pt: Yes Patient agreeable to treatment: Yes Consult Discharge Plan - Plan Referrals: [facility] [Outside] - 09/18/17 10:40 am (The above appointment is with Dr. Natalie De Leon for outpatient psychiatric assessment and medication management services. Please arrive 10 minutes early to complete the check-in process. Please bring your insurance card ([facility]) and photo ID. If you are unable to keep this appointment, 24 hour business notice of cancellation is expected. If you miss your new patient appointment with any provider without providing appropriate notice, you cannot be re-scheduled for that service. The above appointment(s) reflects first availability. You may contact the office regularly to check for cancellations that may allow you to be seen sooner. The [facility] is the 1st building behind [facility] in [place], [place]. Please do not use GPS or mapping apps to locate the office, as they will take you to the wrong location. ) Cricket Duckworth, PhD [Outside] - 07/30/17 3:00 pm (The above appointment is with Cricket Duckworth, PhD for outpatient mental health counseling services. This is the first available appointment. Dr. Duckworth will contact you if he has any cancellations that would allow you to be seen sooner. Your co-pay per visit will be $40. You may pay in smith, check or money order.) Janeth Crabtree CNP [Partnered Physician] - 08/01/17 2:00 pm (The above appointment is with Dr. Hinton' nurse practitioner, Janeth Crabtree, for primary health care and medication management services. Please arrive 10 minutes early to complete the check-in process. Please also bring your insurance card (or [facility] award letter), photo ID, and all medications in their original bottles to this appointment. If you are unable to keep this appointment, 24 hour business notice of cancellation is expected. The above appointment(s) reflects first availability. You may contact the office regularly to check for cancellations that may allow you to be seen sooner.) Psychiatry Exam - Constitutional Vitals: Temp Pulse Resp BP Pulse Ox 98.0 F 66 18 145/77 94 07/30/17 20:56 07/30/17 20:56 07/30/17 20:56 07/30/17 20:56 07/24/17 09:37 General appearance: age & developmentally appropriate, well-groomed - Musculoskeletal Gait: normal Station: relaxed Strength & Tone: normal for patient - Psychiatric Patient Orientation: Yes Person, Yes Time, Yes Place Level of alertness: Alert Behavior: calm, cooperative Psychomotor activity: Normal Mood Description: Depressed Affect description: dysphoric Speech Volume: Normal Speech pattern: normal rate Language & Vocabulary: consistent with education Thought Process: Intact Thought Content: Yes Suicidal ideation Attention Span Ability: Capable of Focused Attention Memory Description: Grossly Intact Patient Reliability: Reliable Historian Fund of knowledge: Yes average Intelligence Estimate: Average Judgment: Fair Insight: Partial
[2017-07-31] MEDS: ARIPiprazole 5 MG TABLET PO SCH (20:14)
[2017-08-01 08:30] LABS: Chol/HDL Ratio 3.4 (0-4.9)
[2017-08-01 08:43] LABS: Thyroid Stimulating Hormone 2.416 mcIU/mL (0.340-5.600)
[2017-08-01] MEDS: Venlafaxine XR (24 HR) 150 MG CAP.ER.24H PO SCH (08:47)
[2017-08-01] MEDS: *HR* Metformin 500 MG TABLET PO SCH ×2 (08:47→16:42)
[2017-08-01] MEDS: Diltiazem CD (24hr) 240 MG CAPSULE PO SCH (08:47)
--- NOTE | 2017-08-01 12:32 | Psychiatry Progress Note ---
Date of Encounter: 08/01/17 Time of Encounter: 12:00 Subjective Interval history: Been probated. The probate hearing was held yesterday. She is been reported to be very upset about this. A forced medication order was not felt to be necessarypending pending a full hearing. The patient was advised to have a family meeting and she reports that her son came to the hearing would like to have a family meeting. He currently works a swing shift. On the unit the patient continues to have suicidal ideation she has been flat she is been more cooperative notes no side effects to the medication. The patient acknowledges her desire to not return home until she is fully better. 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 Review of Systems Psychiatric: Reports: depression, anxiety, abnormal sleep pattern, suicidal ideation, change in appetite, difficulty concentrating, hopelessness, irritability, other Results - Vital Signs Vital Signs: Temp Pulse Resp BP Pulse Ox 98.0 F 73 14 106/70 94 08/01/17 09:00 08/01/17 09:00 08/01/17 09:00 08/01/17 09:00 07/24/17 09:37 - Labs Labs: Laboratory Results - last 24 hr 08/01/17 08/01/17 07:50 08:04 POC Glucose 99 Triglycerides 83 Cholesterol 182 LDL Cholesterol, Calc 111 H VLDL Cholesterol, Calc 17 HDL Cholesterol 54 Cholesterol/HDL Ratio 3.4 TSH 2.416 Assessment and Plan (1) Major depressive disorder, recurrent severe without psychotic features Current visit: Yes Status: Acute Plan: Continue hospitalization, Close observation, Suicide Precautions per unit protocol, Encourage participation in unit milieu, Group Therapy, Monitor sleep, Monitor appetite, Secure weapons Risks, benefits, side effects, alternatives discussed w/pt: Yes Patient agreeable to treatment: Yes (2) Anxiety disorder Current visit: Yes Status: Acute Plan: Continue hospitalization, Close observation, Suicide Precautions per unit protocol, Encourage participation in unit milieu, Monitor sleep, Family/ Supportive other meeting Risks, benefits, side effects, alternatives discussed w/pt: Yes Patient agreeable to treatment: Yes Qualifiers: Anxiety disorder type: unspecified anxiety disorder Qualified Code(s): F41.9 - Anxiety disorder, unspecified (3) Feeling like committing suicide Current visit: Yes Status: Acute Plan: Continue hospitalization, Close observation, Suicide Precautions per unit protocol, Encourage participation in unit milieu, Group Therapy, Monitor sleep, Monitor appetite, Secure weapons, Family/Supportive other meeting Risks, benefits, side effects, alternatives discussed w/pt: Yes Patient agreeable to treatment: Yes Consult Discharge Plan - Plan Referrals: [facility] [Outside] - 09/18/17 10:40 am (The above appointment is with Dr. Natalie De Leon for outpatient psychiatric assessment and medication management services. Please arrive 10 minutes early to complete the check-in process. Please bring your insurance card (or [facility] award letter) and photo ID. If you are unable to keep this appointment, 24 hour business notice of cancellation is expected. If you miss your new patient appointment with any provider without providing appropriate notice, you cannot be re-scheduled for that service. The above appointment(s) reflects first availability. You may contact the office regularly to check for cancellations that may allow you to be seen sooner. The [facility] is the [address] [place] [address] behind [facility] in [place], [place]. Please do not use GPS or mapping apps to locate the office, as they will take you to the wrong location. ) Cricket Duckworth, PhD [Outside] - 07/30/17 3:00 pm (The above appointment is with Cricket Duckworth, PhD for outpatient mental health counseling services. This is the first available appointment. Dr. Duckworth will contact you if he has any cancellations that would allow you to be seen sooner. Your co-pay per visit will be $40. You may pay in smith, check or money order.) Evonne Colon CNP [Advanced Practice Nurse] - 08/13/17 1:00 pm (The above appointment is with Dr. Hinton' nurse practitioner, Evonne Colon, for primary health care and medication management services. Please arrive 10 minutes early to complete the check-in process. Please also bring your insurance card, photo ID, and all medications in their original bottles to this appointment. If you are unable to keep this appointment, 24 hour business notice of cancellation is expected. The above appointment(s) reflects first availability. You may contact the office regularly to check for cancellations that may allow you to be seen sooner.) Psychiatry Exam - Constitutional Vitals: Temp Pulse Resp BP Pulse Ox 98.0 F 73 14 106/70 94 08/01/17 09:00 08/01/17 09:00 08/01/17 09:00 08/01/17 09:00 07/24/17 09:37 General appearance: age & developmentally appropriate, well-groomed - Musculoskeletal Gait: normal Station: relaxed Strength & Tone: normal for patient - Psychiatric Patient Orientation: Yes Person, Yes Time, Yes Place, Yes Circumstance Level of alertness: Alert Behavior: calm Psychomotor activity: Slowed Eye Contact: Maintains Eye Contact Mood Description: Depressed, Anxious Affect description: dysphoric, anxious Speech Volume: Soft/Quiet Speech pattern: normal rate Language & Vocabulary: consistent with education Thought Process: Intact, Logical Thought Content: Yes Suicidal ideation Perceptual Disturbances: No Auditory hallucinations, No Visual hallucinations Attention Span Ability: Capable of Sustained Attention Memory Description: Grossly Intact Patient Reliability: Reliable Historian Fund of knowledge: Yes abstraction ability Intelligence Estimate: Above [place] Judgment: Limited Insight: Minimal
[2017-08-01] MEDS: ARIPiprazole 5 MG TABLET PO SCH (20:59)
[2017-08-02] MEDS: Diltiazem CD (24hr) 240 MG CAPSULE PO SCH (08:42)
[2017-08-02] MEDS: Ibuprofen 400 MG TABLET PO PRN ×2 (08:42→21:11)
[2017-08-02] MEDS: Venlafaxine XR (24 HR) 150 MG CAP.ER.24H PO SCH (08:42)
[2017-08-02] MEDS: *HR* Metformin 500 MG TABLET PO SCH ×2 (08:42→16:30)
--- NOTE | 2017-08-02 16:29 | Psychiatry Progress Note ---
Date of Encounter: 08/02/17 Time of Encounter: 15:00 Subjective Interval history: Identifying Data: Patient i a 71y/o female, , lives with 26y/o grandson with h/o of depression and anxiety,h/o multiple inpatient hospitalizations readmitted after a ay following 10days of admission on account of feeling depressed and suicidal with a plan and intent to overdose on pills. Interval Hx: Patient was discussed by a multidisciplinary treatment. There were no reported behavioral issues or incident overnight. She was seen this morning in the office and was calm, cooperative. She reported improvement in her depression but is still endorsing intermittent suicidal thoughts with no plan or intent. Patient has agreed to a family meeting which has been scheduled for next week. She is also being probated for commitment due recent multiple readmissions to the [facility] after discharge. She is compliant with her medications and denied any side effects. On review of symptoms, she denied any mood or psychosis symptoms including AH/VH/HI. Review of Systems Constitutional: Denies: fever, chills, weakness, weight change Eyes: Denies: eye pain, vision change Ears, Nose, Throat: Denies: ear pain, throat pain, dental pain, hearing loss, congestion Cardiovascular: Denies: chest pain, palpitations, dyspnea on exertion Respiratory: Denies: cough, dyspnea, wheezes Gastrointestinal: Denies: abdominal pain, nausea, vomiting, diarrhea, constipation Musculoskeletal: Denies: joint swelling, joint pain Neurological: Denies: headache, weakness, numbness, memory loss Psychiatric: Reports: depression, anxiety, suicidal ideation, change in appetite , difficulty concentrating, hopelessness, irritability, other Results - Vital Signs Vital Signs: Temp Pulse Resp BP Pulse Ox 98.3 F 77 18 123/64 94 08/02/17 09:00 08/02/17 09:00 08/02/17 09:00 08/02/17 09:00 07/24/17 09:37 - Labs Labs: Laboratory Results - last 24 hr 08/02/17 07:55 POC Glucose 107 H Assessment and Plan (1) Suicidal ideation Current visit: Yes Status: Acute Risks, benefits, side effects, alternatives discussed w/pt: Yes Patient agreeable to treatment: Yes (2) Major depressive disorder, recurrent Current visit: Yes Status: Acute Risks, benefits, side effects, alternatives discussed w/pt: Yes Patient agreeable to treatment: Yes Qualifiers: Active/Remission status: currently active Major depression episode severity : severe Psychotic features: without psychotic features Qualified Code(s): F33.2 - Major depressive disorder, recurrent severe without psychotic features (3) Anxiety Current visit: Yes Status: Acute Risks, benefits, side effects, alternatives discussed w/pt: Yes Patient agreeable to treatment: Yes (4) Major depress dis, severe Current visit: No Status: Acute Plan: Continue hospitalization, Close observation, Suicide Precautions per unit protocol, Encourage participation in unit milieu, Group Therapy, Monitor sleep, Monitor appetite (5) Major depressive disorder, recurrent severe without psychotic features Current visit: Yes Status: Acute Plan: Continue hospitalization, Close observation, Suicide Precautions per unit protocol, Encourage participation in unit milieu, Group Therapy, Monitor sleep, Monitor appetite Risks, benefits, side effects, alternatives discussed w/pt: Yes Patient agreeable to treatment: Yes (6) Anxiety disorder Current visit: Yes Status: Acute Plan: Continue hospitalization, Close observation, Suicide Precautions per unit protocol, Encourage participation in unit milieu, Group Therapy, Monitor sleep, Monitor appetite Risks, benefits, side effects, alternatives discussed w/pt: Yes Patient agreeable to treatment: Yes Qualifiers: Anxiety disorder type: unspecified anxiety disorder Qualified Code(s): F41.9 - Anxiety disorder, unspecified Consult Discharge Plan - Plan Referrals: [facility] [Outside] - 09/18/17 10:40 am (The above appointment is with Dr. Natalie De Leon for outpatient psychiatric assessment and medication management services. Please arrive 10 minutes early to complete the check-in process. Please bring your insurance card (or [facility] award letter) and photo ID. If you are unable to keep this appointment, 24 hour business notice of cancellation is expected. If you miss your new patient appointment with any provider without providing appropriate notice, you cannot be re-scheduled for that service. The above appointment(s) reflects first availability. You may contact the office regularly to check for cancellations that may allow you to be seen sooner. The [facility] is the 1st building behind [facility] in [place], [place]. Please do not use GPS or mapping apps to locate the office, as they will take you to the wrong location. ) Cricket Duckworth, PhD [Outside] - 07/30/17 3:00 pm (The above appointment is with Cricket Duckworth, PhD for outpatient mental health counseling services. This is the first available appointment. Dr. Duckworth will contact you if he has any cancellations that would allow you to be seen sooner. Your co-pay per visit will be $40. You may pay in smith, check or money order.) Evonne Colon CNP [Advanced Practice Nurse] - 08/13/17 1:00 pm (The above appointment is with Dr. Hinton' nurse practitioner, Evonne Colon, for primary health care and medication management services. Please arrive 10 minutes early to complete the check-in process. Please also bring your insurance card, photo ID, and all medications in their original bottles to this appointment. If you are unable to keep this appointment, 24 hour business notice of cancellation is expected. The above appointment(s) reflects first availability. You may contact the office regularly to check for cancellations that may allow you to be seen sooner.) Psychiatry Exam - Constitutional Vitals: Temp Pulse Resp BP Pulse Ox 98.3 F 77 18 123/64 94 08/02/17 09:00 08/02/17 09:00 08/02/17 09:00 08/02/17 09:00 07/24/17 09:37
[2017-08-02] MEDS: ARIPiprazole 5 MG TABLET PO SCH (21:12)
[2017-08-03] MEDS: Venlafaxine XR (24 HR) 150 MG CAP.ER.24H PO SCH (08:44)
[2017-08-03] MEDS: *HR* Metformin 500 MG TABLET PO SCH ×2 (08:45→16:11)
[2017-08-03] MEDS: Diltiazem CD (24hr) 240 MG CAPSULE PO SCH (08:45)
[2017-08-03] MEDS: Ibuprofen 400 MG TABLET PO PRN ×2 (11:21→22:04)
--- NOTE | 2017-08-03 11:41 | Psychiatry Progress Note ---
Date of Encounter: 08/03/17 Time of Encounter: 11:00 Subjective Interval history: Identifying Data: Patient i a 71y/o female, , lives with 26y/o grandson with h/o of depression and anxiety,h/o multiple inpatient hospitalizations readmitted after a ay following 10days of admission on account of feeling depressed and suicidal with a plan and intent to overdose on pills. Interval Hx: Patient was discussed by a multidisciplinary treatment. There were no reported behavioral issues or incident overnight. She was seen this morning in her room. She reported feeling "just a little bit better" and is still having SI with no plan but not sure about intent. She was calm and cooperative. She is compliant in her medications and denied any side effects. She denied problems with her sleep and appetite. A family is scheduled for next week. She rated her anxiety 5 /10. On review of symptoms, she denied any mood or psychosis symptoms including AH/VH/HI. Review of Systems Constitutional: Denies: fever, chills, weakness, weight change Eyes: Denies: eye pain, vision change Ears, Nose, Throat: Denies: ear pain, throat pain, dental pain, hearing loss, congestion Cardiovascular: Denies: chest pain, palpitations, dyspnea on exertion Respiratory: Denies: cough, dyspnea, wheezes Gastrointestinal: Denies: abdominal pain, nausea, vomiting, diarrhea, constipation Musculoskeletal: Denies: joint swelling, joint pain Neurological: Denies: headache, weakness, numbness, memory loss Psychiatric: Reports: depression, anxiety, suicidal ideation, difficulty concentrating, hopelessness, irritability, other Results - Vital Signs Vital Signs: Temp Pulse Resp BP Pulse Ox 98.6 F 64 18 126/69 94 08/03/17 09:00 08/03/17 09:00 08/03/17 09:00 08/03/17 09:00 07/24/17 09:37 - Labs Labs: Laboratory Results - last 24 hr 08/03/17 08:41 POC Glucose 96 Assessment and Plan (1) Suicidal ideation Current visit: Yes Status: Acute Risks, benefits, side effects, alternatives discussed w/pt: Yes Patient agreeable to treatment: Yes (2) Major depressive disorder, recurrent Current visit: Yes Status: Acute Risks, benefits, side effects, alternatives discussed w/pt: Yes Patient agreeable to treatment: Yes Qualifiers: Active/Remission status: currently active Major depression episode severity : severe Psychotic features: without psychotic features Qualified Code(s): F33.2 - Major depressive disorder, recurrent severe without psychotic features (3) Anxiety Current visit: Yes Status: Acute Risks, benefits, side effects, alternatives discussed w/pt: Yes Patient agreeable to treatment: Yes (4) Major depress dis, severe Current visit: No Status: Acute (5) Major depressive disorder, recurrent severe without psychotic features Current visit: Yes Status: Acute Risks, benefits, side effects, alternatives discussed w/pt: Yes Patient agreeable to treatment: Yes (6) Anxiety disorder Current visit: Yes Status: Acute Risks, benefits, side effects, alternatives discussed w/pt: Yes Patient agreeable to treatment: Yes Qualifiers: Anxiety disorder type: unspecified anxiety disorder Qualified Code(s): F41.9 - Anxiety disorder, unspecified Consult Discharge Plan - Plan Referrals: [facility] [Outside] - 09/18/17 10:40 am (The above appointment is with Dr. Natalie De Leon for outpatient psychiatric assessment and medication management services. Please arrive 10 minutes early to complete the check-in process. Please bring your insurance card (or [facility]) and photo ID. If you are unable to keep this appointment, 24 hour business notice of cancellation is expected. If you miss your new patient appointment with any provider without providing appropriate notice, you cannot be re-scheduled for that service. The above appointment(s) reflects first availability. You may contact the office regularly to check for cancellations that may allow you to be seen sooner. The [facility] is the [address] [place] [address] behind [facility] in [place], [place]. Please do not use GPS or mapping apps to locate the office, as they will take you to the wrong location. ) Cricket Duckworth, PhD [Outside] - 07/30/17 3:00 pm (The above appointment is with Cricket Duckworth, PhD for outpatient mental health counseling services. This is the first available appointment. Dr. Duckworth will contact you if he has any cancellations that would allow you to be seen sooner. Your co-pay per visit will be $40. You may pay in smith, check or money order.) Evonne Colon CNP [Advanced Practice Nurse] - 08/13/17 1:00 pm (The above appointment is with Dr. Hinton' nurse practitioner, Evonne Colon, for primary health care and medication management services. Please arrive 10 minutes early to complete the check-in process. Please also bring your insurance card, photo ID, and all medications in their original bottles to this appointment. If you are unable to keep this appointment, 24 hour business notice of cancellation is expected. The above appointment(s) reflects first availability. You may contact the office regularly to check for cancellations that may allow you to be seen sooner.) Psychiatry Exam - Constitutional Vitals: Temp Pulse Resp BP Pulse Ox 98.6 F 64 18 126/69 94 08/03/17 09:00 08/03/17 09:00 08/03/17 09:00 08/03/17 09:00 07/24/17 09:37 - Musculoskeletal Gait: normal Station: relaxed Strength & Tone: normal for patient - Psychiatric Patient Orientation: Yes Person, Yes Time, Yes Place Level of alertness: Alert Behavior: calm, cooperative Psychomotor activity: Slowed Eye Contact: Maintains Eye Contact Mood Description: Depressed Affect description: flat Speech Volume: Soft/Quiet Speech pattern: normal rate, normal rhythm, normal tone, fluent, spontaneous Language & Vocabulary: consistent with education Thought Process: Linear, Goal Oriented Thought Content: Yes Suicidal ideation, No Homicidal ideation, No Overt delusions Perceptual Disturbances: No Auditory hallucinations, No Visual hallucinations Attention Span Ability: Capable of Focused Attention Memory Description: Grossly Intact Patient Reliability: Reliable Historian Fund of knowledge: Yes abstraction ability, Yes aware of current events Intelligence Estimate: Average Judgment: Poor Insight: Minimal
[2017-08-03] MEDS: ARIPiprazole 5 MG TABLET PO SCH (22:03)
[2017-08-04] MEDS: Ibuprofen 400 MG TABLET PO PRN ×2 (08:57→22:05)
[2017-08-04] MEDS: Diltiazem CD (24hr) 240 MG CAPSULE PO SCH (08:57)
[2017-08-04] MEDS: Venlafaxine XR (24 HR) 150 MG CAP.ER.24H PO SCH (08:57)
[2017-08-04] MEDS: *HR* Metformin 500 MG TABLET PO SCH ×2 (08:58→16:40)
--- NOTE | 2017-08-04 12:43 | Psychiatry Progress Note ---
Date of Encounter: 08/04/17 Time of Encounter: 12:39 Subjective Interval history: Patient seen for follow-up. Case discussed with nursing staff. She is showing some improvement in her mood, still reports suicidal thoughts, participate in groups, more interactive with staff and peers. Appetite and sleep are adequate. She is medication compliant. She shared with me history of depression and an history and overdose at that time many years ago. She is aware of her medication and denies any side effects. Review of Systems Psychiatric: Reports: depression, anxiety, suicidal ideation, difficulty concentrating, hopelessness, irritability, other Results - Vital Signs Vital Signs: Temp Pulse Resp BP Pulse Ox 97.4 F L 77 18 118/62 94 08/04/17 09:00 08/04/17 09:00 08/04/17 09:00 08/04/17 09:00 07/24/17 09:37 - Labs Labs: Laboratory Results - last 24 hr 08/04/17 08:06 POC Glucose 102 H Assessment and Plan (1) Major depressive disorder, recurrent severe without psychotic features Current visit: Yes Status: Acute Plan: Continue hospitalization, Close observation, Suicide Precautions per unit protocol, Encourage participation in unit milieu, Group Therapy, Monitor sleep, Monitor appetite Risks, benefits, side effects, alternatives discussed w/pt: Yes Patient agreeable to treatment: Yes Consult Discharge Plan - Plan Referrals: [facility] [Outside] - 09/18/17 10:40 am (The above appointment is with Dr. Natalie De Leon for outpatient psychiatric assessment and medication management services. Please arrive 10 minutes early to complete the check-in process. Please bring your insurance card (or [facility] award letter) and photo ID. If you are unable to keep this appointment, 24 hour business notice of cancellation is expected. If you miss your new patient appointment with any provider without providing appropriate notice, you cannot be re-scheduled for that service. The above appointment(s) reflects first availability. You may contact the office regularly to check for cancellations that may allow you to be seen sooner. The [facility] is the 1st building behind [facility] in [place], [place]. Please do not use GPS or mapping apps to locate the office, as they will take you to the wrong location. ) Cricket Duckworth, PhD [Outside] - 07/30/17 3:00 pm (The above appointment is with Cricket Duckworth, PhD for outpatient mental health counseling services. This is the first available appointment. Dr. Duckworth will contact you if he has any cancellations that would allow you to be seen sooner. Your co-pay per visit will be $40. You may pay in smith, check or money order.) Evonne Colon, SAFETY ADMINISTRATOR [Advanced Practice Nurse] - 08/13/17 1:00 pm (The above appointment is with Dr. Hinton' nurse practitioner, Evonne Colon, for primary health care and medication management services. Please arrive 10 minutes early to complete the check-in process. Please also bring your insurance card, photo ID, and all medications in their original bottles to this appointment. If you are unable to keep this appointment, 24 hour business notice of cancellation is expected. The above appointment(s) reflects first availability. You may contact the office regularly to check for cancellations that may allow you to be seen sooner.) Psychiatry Exam - Constitutional Vitals: Temp Pulse Resp BP Pulse Ox 97.4 F L 77 18 118/62 94 08/04/17 09:00 08/04/17 09:00 08/04/17 09:00 08/04/17 09:00 07/24/17 09:37 General appearance: age & developmentally appropriate, well-groomed, well- nourished - Musculoskeletal Gait: normal Station: relaxed Strength & Tone: normal for patient - Psychiatric Patient Orientation: Yes Person, Yes Time, Yes Place Level of alertness: Alert Behavior: calm, cooperative Psychomotor activity: Normal Eye Contact: Maintains Eye Contact Mood Description: Euthymic/stable Affect description: congruent with mood, constricted Speech Volume: Normal, Soft/Quiet Speech pattern: normal rate, normal rhythm, normal tone, fluent, spontaneous Language & Vocabulary: consistent with education Thought Process: Linear, Goal Oriented Thought Content: Yes Suicidal ideation, No Homicidal ideation, No Overt delusions Perceptual Disturbances: No Auditory hallucinations, No Visual hallucinations Attention Span Ability: Capable of Focused Attention Memory Description: Grossly Intact Patient Reliability: Reliable Historian Fund of knowledge: Yes abstraction ability, Yes aware of current events Intelligence Estimate: Average Judgment: Limited Insight: Partial
[2017-08-04] MEDS: ARIPiprazole 5 MG TABLET PO SCH (22:01)
[2017-08-05] MEDS: *HR* Metformin 500 MG TABLET PO SCH ×2 (10:20→17:11)
[2017-08-05] MEDS: Diltiazem CD (24hr) 240 MG CAPSULE PO SCH (10:20)
[2017-08-05] MEDS: Venlafaxine XR (24 HR) 150 MG CAP.ER.24H PO SCH (10:20)
--- NOTE | 2017-08-05 12:59 | Psychiatry Progress Note ---
Date of Encounter: 08/05/17 Time of Encounter: 12:57 Subjective Interval history: Patient seen for follow-up. Case discussed was nursing staff. Patient had a family meeting with social services specialist and her son and daughter. She denies any problem with sleep she denies suicidal ideation. She is medication compliant and cooperative. She was encouraged to make plans for activities to occupy her time at home. She is showing some insight into her passive negative way of coping. Denies any somatic issues. Review of Systems Psychiatric: Reports: depression, anxiety, suicidal ideation, difficulty concentrating, hopelessness, irritability, other Results - Vital Signs Vital Signs: Temp Pulse Resp BP Pulse Ox 98.2 F 64 18 134/69 94 08/05/17 08:57 08/05/17 08:57 08/05/17 08:57 08/05/17 08:57 07/24/17 09:37 - Labs Labs: Laboratory Results - last 24 hr 08/05/17 08:26 POC Glucose 129 H Assessment and Plan (1) Major depressive disorder, recurrent severe without psychotic features Current visit: Yes Status: Acute Risks, benefits, side effects, alternatives discussed w/pt: Yes Patient agreeable to treatment: Yes Consult Discharge Plan - Plan Referrals: [facility] [Outside] - 09/18/17 10:40 am (The above appointment is with Dr. Natalie De Leon for outpatient psychiatric assessment and medication management services. Please arrive 10 minutes early to complete the check-in process. Please bring your insurance card (or [facility] award letter) and photo ID. If you are unable to keep this appointment, 24 hour business notice of cancellation is expected. If you miss your new patient appointment with any provider without providing appropriate notice, you cannot be re-scheduled for that service. The above appointment(s) reflects first availability. You may contact the office regularly to check for cancellations that may allow you to be seen sooner. The [facility] is the 1st building behind [facility] in [place], [place]. Please do not use GPS or mapping apps to locate the office, as they will take you to the wrong location. ) Cricket Duckworht, PhD [Outside] - 07/30/17 3:00 pm (The above appointment is with Cricket Duckworth, PhD for outpatient mental health counseling services. This is the first available appointment. Dr. Sed will contact you if he has any cancellations that would allow you to be seen sooner. Your co-pay per visit will be $40. You may pay in smith, check or money order.) vEonne Colon CNP [Advanced Practice Nurse] - 08/13/17 1:00 pm (The above appointment is with Dr. Hinton' nurse practitioner, Evonne Colon, for primary health care and medication management services. Please arrive 10 minutes early to complete the check-in process. Please also bring your insurance card, photo ID, and all medications in their original bottles to this appointment. If you are unable to keep this appointment, 24 hour business notice of cancellation is expected. The above appointment(s) reflects first availability. You may contact the office regularly to check for cancellations that may allow you to be seen sooner.) Psychiatry Exam - Constitutional Vitals: Temp Pulse Resp BP Pulse Ox 98.2 F 64 18 134/69 94 08/05/17 08:57 08/05/17 08:57 08/05/17 08:57 08/05/17 08:57 07/24/17 09:37 General appearance: age & developmentally appropriate, well-groomed, well- nourished, obese - Musculoskeletal Gait: normal Station: relaxed Strength & Tone: normal for patient - Psychiatric Patient Orientation: Yes Person, Yes Time, Yes Place Level of alertness: Alert Behavior: calm, cooperative Psychomotor activity: Normal Eye Contact: Maintains Eye Contact Mood Description: Euthymic/stable Affect description: congruent with mood, full range Speech Volume: Normal Speech pattern: normal rate, normal rhythm, normal tone, fluent, spontaneous Language & Vocabulary: consistent with education Thought Process: Linear, Goal Oriented Thought Content: No Suicidal ideation, No Homicidal ideation, No Overt delusions Perceptual Disturbances: No Auditory hallucinations, No Visual hallucinations Attention Span Ability: Capable of Focused Attention Memory Description: Grossly Intact Patient Reliability: Reliable Historian Fund of knowledge: Yes abstraction ability, Yes aware of current events Intelligence Estimate: Average Judgment: Limited Insight: Partial
[2017-08-05] MEDS: ARIPiprazole 5 MG TABLET PO SCH (21:15)
[2017-08-06] MEDS: Diltiazem CD (24hr) 240 MG CAPSULE PO SCH (08:59)
[2017-08-06] MEDS: *HR* Metformin 500 MG TABLET PO SCH ×2 (08:59→17:38)
[2017-08-06] MEDS: Venlafaxine XR (24 HR) 150 MG CAP.ER.24H PO SCH (09:00)
[2017-08-06] MEDS: Ibuprofen 400 MG TABLET PO PRN (09:55)
--- NOTE | 2017-08-06 14:25 | Psychiatry Progress Note ---
Date of Encounter: 08/06/17 Time of Encounter: 14:15 Subjective Interval history: Patient seen for follow-up. Case discussed with treatment team. store worker updated me on the family meeting. Patient is showing improvement and denies suicidal ideation. She is aware that her motivation at home has not been adequate to do more activities. She denies any problem with sleep. Compliant with medication. Participate in groups and activities. Review of Systems Psychiatric: Reports: depression, anxiety, other Results - Vital Signs Vital Signs: Temp Pulse Resp BP Pulse Ox 97.4 F L 68 16 116/66 94 08/06/17 08:24 08/06/17 08:24 08/06/17 08:24 08/06/17 08:24 07/24/17 09:37 - Labs Labs: Laboratory Results - last 24 hr 08/06/17 08:01 POC Glucose 83 Assessment and Plan (1) Major depressive disorder, recurrent severe without psychotic features Current visit: Yes Status: Acute Plan: Continue hospitalization, Close observation, Suicide Precautions per unit protocol, Encourage participation in unit milieu, Group Therapy, Monitor sleep, Monitor appetite Risks, benefits, side effects, alternatives discussed w/pt: Yes Patient agreeable to treatment: Yes Consult Discharge Plan - Plan Referrals: [facility] [Outside] - 09/18/17 10:40 am (The above appointment is with Dr. Natalie De Leon for outpatient psychiatric assessment and medication management services. Please arrive 10 minutes early to complete the check-in process. Please bring your insurance card (or [facility] award letter) and photo ID. If you are unable to keep this appointment, 24 hour business notice of cancellation is expected. If you miss your new patient appointment with any provider without providing appropriate notice, you cannot be re-scheduled for that service. The above appointment(s) reflects first availability. You may contact the office regularly to check for cancellations that may allow you to be seen sooner. The [facility] is the 1st building behind [facility] in [place], [place]. Please do not use GPS or mapping apps to locate the office, as they will take you to the wrong location. ) Cricket Duckworth, PhD [Outside] - 08/08/17 6:00 pm (The above appointment is with Cricket Duckworth, PhD for outpatient mental health counseling services. This is the first available appointment. Dr. Duckworth will contact you if he has any cancellations that would allow you to be seen sooner. Your co-pay per visit will be $40. You may pay in smith, check or money order. 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 Hinton' nurse practitioner, Evonne Colon, for primary health care and medication management services. Please arrive 10 minutes early to complete the check-in process. Please also bring your insurance card, photo ID, and all medications in their original bottles to this appointment. If you are unable to keep this appointment, 24 hour business notice of cancellation is expected. The above appointment(s) reflects first availability. You may contact the office regularly to check for cancellations that may allow you to be seen sooner.) Psychiatry Exam - Constitutional Vitals: Temp Pulse Resp BP Pulse Ox 97.4 F L 68 16 116/66 94 08/06/17 08:24 08/06/17 08:24 08/06/17 08:24 08/06/17 08:24 07/24/17 09:37 General appearance: age & developmentally appropriate, well-groomed, well- nourished, obese - Musculoskeletal Gait: normal Station: relaxed Strength & Tone: normal for patient - Psychiatric Patient Orientation: Yes Person, Yes Time, Yes Place Level of alertness: Alert Behavior: calm, cooperative Psychomotor activity: Normal Eye Contact: Maintains Eye Contact Mood Description: Euthymic/stable Affect description: congruent with mood, full range Speech Volume: Normal Speech pattern: normal rate, normal rhythm, normal tone, fluent, spontaneous Language & Vocabulary: consistent with education Thought Process: Linear, Goal Oriented Thought Content: No Suicidal ideation, No Homicidal ideation, No Overt delusions Perceptual Disturbances: No Auditory hallucinations, No Visual hallucinations Attention Span Ability: Capable of Focused Attention Memory Description: Grossly Intact Patient Reliability: Reliable Historian Fund of knowledge: Yes abstraction ability, Yes aware of current events Intelligence Estimate: Average Judgment: Limited Insight: Partial
[2017-08-06] MEDS: ARIPiprazole 5 MG TABLET PO SCH (21:07)
[2017-08-07] MEDS: Ibuprofen 400 MG TABLET PO PRN (07:35)
[2017-08-07] MEDS: *HR* Metformin 500 MG TABLET PO SCH (08:13)
[2017-08-07] MEDS: Venlafaxine XR (24 HR) 150 MG CAP.ER.24H PO SCH (08:29)
[2017-08-07] MEDS: Diltiazem CD (24hr) 240 MG CAPSULE PO SCH (08:29)
[2017-08-07 09:35] VITALS: BP 135/75
--- NOTE | 2017-08-07 10:44 | Discharge Summary ---
Date of Encounter: 08/07/17 Time of Encounter: 10:36 Diagnosis - Discharge Diagnosis (1) Major depressive disorder, recurrent severe without psychotic features Status: Acute Medications - Discharge Medications Prescriptions: ARIPiprazole [Abilify] 5 mg PO HS #30 tablet Venlafaxine XR (24 HR) [Effexor Xr] 150 mg PO DAILY #30 cap.er.24h Diltiazem CD (24hr) [Cardizem CD] 240 mg PO DAILY 07/09/17 [History] Lisinopril [Zestril] 10 mg PO DAILY 07/09/17 [History] Triamterene/HCTZ 37.5/25mg [Dyazide] 1 tab PO DAILY 07/09/17 [History] metFORMIN [Glucophage] 500 mg PO BID 07/09/17 [History] BuPROPion SR (12 HR) [Wellbutrin SR] 150 mg PO DAILY #30 tablet.er 07/23/17 [Rx] Buspirone HCl [Buspar] 5 mg PO TID #90 tablet 07/23/17 [Rx] ARIPiprazole [Abilify] 5 mg PO HS #30 tablet 08/07/17 [Rx] Venlafaxine XR (24 HR) [Effexor Xr] 150 mg PO DAILY #30 cap.er.24h 08/07/17 [Rx] traZODone [TraZODone] 50 mg PO HS PRN tablet 08/07/17 [Rx] 3 Allergy/AdvReac Type Severity Reaction Status Date / Time ciprofloxacin [From Cipro] Allergy Anaphylaxis Verified 07/24/17 12:35 Results Procedures and tests throughout hospitalization: Completed Lab Orders Category Date Time Status Lipid Panel Routine Lab 08/01/17 07:50 Completed Thyroid Stimulating Hormone Routine Lab 08/01/17 07:50 Completed Provider Date of admission: 07/28/17 14:27 Primary care physician: PCP NONE Discharging clinician: Huseyin Victoria Psychiatry Exam - Constitutional Vitals: Temp Pulse Resp BP Pulse Ox 96.8 F L 72 18 135/75 94 08/07/17 09:00 08/07/17 09:00 08/07/17 09:00 08/07/17 09:00 07/24/17 09:37 General appearance: age & developmentally appropriate, well-groomed, well- nourished, obese - Musculoskeletal Gait: normal Station: relaxed Strength & Tone: normal for patient - Psychiatric Patient Orientation: Yes Person, Yes Time, Yes Place Level of alertness: Alert Behavior: calm, cooperative Psychomotor activity: Normal Eye Contact: Maintains Eye Contact Mood Description: Euthymic/stable Affect description: congruent with mood, full range Speech Volume: Normal Speech pattern: normal rate, normal rhythm, normal tone, fluent, spontaneous Language & Vocabulary: consistent with education Thought Process: Linear, Goal Oriented Thought Content: No Suicidal ideation, No Homicidal ideation, No Overt delusions Perceptual Disturbances: No Auditory hallucinations, No Visual hallucinations Attention Span Ability: Capable of Focused Attention Memory Description: Grossly Intact Patient Reliability: Reliable Historian Fund of knowledge: Yes abstraction ability, Yes aware of current events Intelligence Estimate: Average Judgment: Limited Insight: Partial Hospital Course Hospital course: Ms. Sánchez is a 71 year old female admitted for depression and suicidal ideation shortly after discharge from the hospital. For details of the admission please see H&P On the unit the patient was started on Abilify and Effexor and prazosin. She responded to medication she reported improved sleep and felt less depressed she participated in groups and activities she was reporting on and off suicidal thoughts for the last few days before discharge she denied having suicidal thoughts. Family meeting was conducted by the social science manager and discussed discharge plans and follow-up after discharge from the hospital to prevent patient relapsing into depression and was advised to increase her activity level and occupy her time. Patient was educated about activities and she was able to put together activities that she would like to do after discharge from the hospital. On discharge patient was medically stable future oriented and excited about going home denied any suicidal thoughts. Aware of her follow-up plans. Discharge planning was completed by social work. Patient discharged in stable condition. - Time Spent with Patient Total time spent providing and/or coordinating discharge services: Less than 30 minutes Assessment and Plan - Patient/Caregiver Discharge Instructions Activity: resume usual activities as tolerated Diet: regular diet - Follow up Plan Follow up with: [facility] [Outside] - 09/18/17 10:40 am (The above appointment is with Dr. Natalie De Leon for outpatient psychiatric assessment and medication management services. Please arrive 10 minutes early to complete the check-in process. Please bring your insurance card (or [facility] award letter) and photo ID. If you are unable to keep this appointment, 24 hour business notice of cancellation is expected. If you miss your new patient appointment with any provider without providing appropriate notice, you cannot be re-scheduled for that service. The above appointment(s) reflects first availability. You may contact the office regularly to check for cancellations that may allow you to be seen sooner. The [facility] is the 1st building behind [facility] in [place], [place]. Please do not use GPS or mapping apps to locate the office, as they will take you to the wrong location. ) Cricket Duckworth, PhD [Outside] - 08/08/17 6:00 pm (The above appointment is with Cricket Duckworth, PhD for outpatient mental health counseling services. This is the first available appointment. Dr. Duckworth will contact you if he has any cancellations that would allow you to be seen sooner. Your co-pay per visit will be $40. You may pay in smith, check or money order. 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 Hinton' nurse practitioner, Evonne Colon, for primary health care and medication management services. Please arrive 10 minutes early to complete the check-in process. Please also bring your insurance card, photo ID, and all medications in their original bottles to this appointment. If you are unable to keep this appointment, 24 hour business notice of cancellation is expected. The above appointment(s) reflects first availability. You may contact the office regularly to check for cancellations that may allow you to be seen sooner.) Functional capacity at discharge: independent ambulation Overall status at discharge: Stable Disposition: Home, Self-Care Quality - Multiple Antipsychotics Patient discharged on 2 or more antipsychotic medications: No Procedures - Procedures Procedures: Medication Management, Crisis Stabilization, Supportive Therapy, Group Therapy, Psychoeducational Therapy
== END 2017-08-07 12:20 | disposition home or self-care (01) | DRG 885 ==
LOC: EMEROO 09:33 → 1ANU 12:10 → SUATTDRO 12:10 → INTOOBSV 12:10 → 1ANU 12:34 → SUATTDRO 07-28 14:27
PROVIDERS: ADMIT General Practice; ATTEND Psychiatry & Neurology Psychiatry

== ENCOUNTER 2018-12-08 01:41 | Inpatient (IN) ==
[2018-12-08 02:23] LABS: Bilirubin,Urine Moderate (Negative); Blood,Urine Negative (Negative); Clarity,Urine Cloudy (Clear); Color,Urine Yellow (Yellow); Glucose,Urine (UA) Normal (Normal); Ketones,Urine 15 mg/dL (Negative); Leukocyte Esterase,Urine Negative (Negative); Nitrite,Urine Negative (Negative); Protein,Urine Trace mg/dL (Neg-Trace); Specific Gravity,Urine 1.018 (1.010-1.025); Urobilinogen,Urine Normal (Normal)
[2018-12-08 02:25] LABS: Bacteria,Urine None Seen per hpf (None-Few); Squamous Epithelial Cell,Urine Many per lpf (None-Few)
[2018-12-08 02:36] LABS: Amphetamine Screen,Urine Negative ng/mL (Cutoff=1000); Barbiturate Screen,Urine Negative ng/mL (Cutoff=200); Benzodiazepines Screen,Urine Negative ng/mL (Cutoff=200); Cannabinoid Screen,Urine Negative ng/mL (Cutoff = 50); Cocaine Screen,Urine Negative ng/mL (Cutoff= 300); Opiate Screen,Urine Negative ng/mL (Cutoff=300); Phencyclidine Screen,Urine Negative ng/mL (Cutoff=25)
[2018-12-08 02:39] LABS: Granular Casts,Urine Few per lpf (None Seen); Hyaline Casts,Urine Moderate per lpf (None-Few)
[2018-12-08 02:40] LABS: Mucus,Urine Few (Few)
[2018-12-08 03:08] LABS: Basophils % 0.3 %; Eosinophils # 0.3 K/mcL (0.0-0.6); Eosinophils % 2.1 %; Hematocrit 41.2 % (35.3-44.9); Hemoglobin 13.4 g/dL (11.5-15.4); Immature Granulocytes % 0.5 % (0-4); Lymphocytes # 1.6 K/mcL (0.6-4.6); Lymphocytes % 10.3 %; Mean Corpuscular HGB Conc 32.5 g/dL (31.6-35.5); Mean Corpuscular Hemoglobin 28.1 pg (28.0-33.3); Mean Corpuscular Volume 86.4 fL (83.0-100.0); Mean Platelet Volume 10.2 fL (9.4-12.4); Monocytes # 0.8 K/mcL (0.0-1.3); Monocytes % 5.4 %; Neutrophils # 12.5 K/mcL (1.6-8.9); Platelet Count 381 K/mcL (140-400); Red Blood Count 4.77 M/mcL (3.82-4.97); Segmented Neutrophils % 81.4 %; White Blood Count 15.4 K/mcL (4.3-11.1)
[2018-12-08 03:16] LABS: INR 1.1; Prothrombin Time 12.4 Seconds (9.4-12.1)
[2018-12-08 03:19] LABS: Activated Partial Thrombo Time 31.4 Seconds (26.0-36.0)
[2018-12-08 03:32] LABS: Alanine Aminotransferase 11 Units/L (7-52); Albumin 4.6 g/dL (3.5-5.7); Albumin/Globulin Ratio 1.5 (1.1-2.2); Alkaline Phosphatase 76 Units/L (34-104); Aspartate Amino Transferase 19 Units/L (13-39); BUN/Creatinine Ratio 17 (6-26); Bilirubin,Direct 0.1 mg/dL (0.0-0.2); Bilirubin,Indirect 0.5 mg/dL (0.0-1.2); Bilirubin,Total 0.6 mg/dL (0.3-1.0); Blood Urea Nitrogen 24 mg/dL (8-23); Calcium 10.3 mg/dL (8.6-10.3); Carbon Dioxide 25 mEq/L (23-29); Chloride 99 mEq/L (98-107); Creatine Kinase 516 Units/L (30-223); Ethanol < 10 mg/dL (Less than 10); Glucose 131 mg/dL (70-105); Magnesium 2.4 mg/dL (1.6-2.6); Osmolality,Calculated 290 (280-300); Sodium 137 mEq/L (136-145); Total Protein 7.6 g/dL (6.4-8.9); Troponin I 0.06 ng/mL (< 0.04); eGFR For African Americans 45 (> 60); eGFR For Non-African Americans 37 (> 60)
[2018-12-08] MEDS ORDERED: 0.9 % Sodium Chloride 1,000 ML IVC ONE (03:35)
[2018-12-08] MEDS ORDERED: Aspirin 81 MG TAB.CHEW PO ONE (03:36)
[2018-12-08] MEDS ORDERED: Potassium Chloride Elixir 20 MEQ/15 ML UDC PO ONE ×2 (03:57→11:42)
[2018-12-08] MEDS ORDERED: Ringers Solution, Lactated 2,000 ML IVC ONE (04:01)
[2018-12-08 04:36] LABS: Thyroid Stimulating Hormone 3.927 mcIU/mL (0.340-5.600)
[2018-12-08] MEDS ORDERED: *HR* Dextrose 50 % in Water (Syg) 50 ML SYRINGE IVP PRN (04:47)
[2018-12-08] MEDS ORDERED: Dextrose Gel 15 GM/37.5 ML TUBE PO PRN ×2 (04:47)
[2018-12-08] MEDS: *HR* Heparin 5,000 UNIT/ML VIAL SQ SCH ×2 (05:45→18:08)
[2018-12-08] MEDS: Insulin LISPRO 300 UNITS/3 ML VIAL SQ SCH ×4 (08:00→21:59)
[2018-12-08 11:14] LABS: BUN/Creatinine Ratio 17 (6-26); Blood Urea Nitrogen 18 mg/dL (8-23); Calcium 9.5 mg/dL (8.6-10.3); Carbon Dioxide 23 mEq/L (23-29); Chloride 105 mEq/L (98-107); Glucose 131 mg/dL (70-105); Osmolality,Calculated 284 (280-300); Potassium 2.9 mEq/L (3.5-5.1); Sodium 135 mEq/L (136-145); eGFR For African Americans > 60 (> 60); eGFR For Non-African Americans 51 (> 60)
[2018-12-08] MEDS: 0.9 % Sodium Chloride 1,000 ML IVC SCH (13:53)
[2018-12-08 15:43] LABS: Sodium, Urine 98.5 mEq/L
[2018-12-08] MEDS: lamoTRIgine 100 MG TABLET PO SCH (21:59)
[2018-12-09] MEDS: *HR* Heparin 5,000 UNIT/ML VIAL SQ SCH ×2 (05:40→21:15)
[2018-12-09 05:56] LABS: BUN/Creatinine Ratio 12 (6-26); Blood Urea Nitrogen 12 mg/dL (8-23); Calcium 9.4 mg/dL (8.6-10.3); Carbon Dioxide 21 mEq/L (23-29); Chloride 107 mEq/L (98-107); Creatine Kinase 271 Units/L (30-223); Glucose 120 mg/dL (70-105); Magnesium 1.9 mg/dL (1.6-2.6); Osmolality,Calculated 285 (280-300); Potassium 3.4 mEq/L (3.5-5.1); Sodium 137 mEq/L (136-145); eGFR For African Americans > 60 (> 60); eGFR For Non-African Americans 57 (> 60)
[2018-12-09] MEDS: OLANZapine 5 MG TAB.RAPDIS PO SCH ×2 (11:24→11:29)
[2018-12-09] MEDS: Insulin LISPRO 300 UNITS/3 ML VIAL SQ SCH ×2 (11:25→21:16)
[2018-12-09] MEDS: Diltiazem CD (24hr) 240 MG CAPSULE PO SCH (14:49)
[2018-12-09] MEDS ORDERED: 0.9 % Sodium Chloride 1,000 ML ONE (15:41)
[2018-12-09] MEDS: lamoTRIgine 100 MG TABLET PO SCH (21:16)
[2018-12-09] MEDS: 0.9 % Sodium Chloride 1,000 ML IVC SCH (21:16)
[2018-12-10] MEDS: 0.9 % Sodium Chloride 1,000 ML IVC SCH ×2 (01:37→12:13)
[2018-12-10] MEDS: *HR* Heparin 5,000 UNIT/ML VIAL SQ SCH ×2 (05:19→18:53)
[2018-12-10] MEDS: Insulin LISPRO 300 UNITS/3 ML VIAL SQ SCH ×6 (07:50→20:57)
[2018-12-10 08:30] LABS: BUN/Creatinine Ratio 13 (6-26); Blood Urea Nitrogen 11 mg/dL (8-23); Calcium 9.2 mg/dL (8.6-10.3); Carbon Dioxide 18 mEq/L (23-29); Chloride 110 mEq/L (98-107); Glucose 127 mg/dL (70-105); Osmolality,Calculated 291 (280-300); Potassium 3.6 mEq/L (3.5-5.1); Sodium 140 mEq/L (136-145); eGFR For African Americans > 60 (> 60); eGFR For Non-African Americans > 60 (> 60)
[2018-12-10] MEDS: OLANZapine 5 MG TAB.RAPDIS PO SCH (08:59)
[2018-12-10] MEDS: Diltiazem CD (24hr) 240 MG CAPSULE PO SCH (08:59)
[2018-12-10 13:46] LABS: Basophils # 0.1 K/mcL (0.0-0.2); Basophils % 0.7 %; Eosinophils # 0.3 K/mcL (0.0-0.6); Eosinophils % 2.9 %; Hematocrit 36.2 % (35.3-44.9); Hemoglobin 11.9 g/dL (11.5-15.4); Immature Granulocytes % 1.8 % (0-4); Lymphocytes # 1.8 K/mcL (0.6-4.6); Lymphocytes % 18.1 %; Mean Corpuscular HGB Conc 32.9 g/dL (31.6-35.5); Mean Corpuscular Hemoglobin 28.5 pg (28.0-33.3); Mean Corpuscular Volume 86.8 fL (83.0-100.0); Mean Platelet Volume 10.4 fL (9.4-12.4); Monocytes # 0.5 K/mcL (0.0-1.3); Monocytes % 5.1 %; Neutrophils # 7.1 K/mcL (1.6-8.9); Platelet Count 321 K/mcL (140-400); Red Blood Count 4.17 M/mcL (3.82-4.97); Red Cell Distribution Width 14.2 % (11.5-14.5); Segmented Neutrophils % 71.4 %
[2018-12-10] MEDS: lamoTRIgine 100 MG TABLET PO SCH (19:56)
[2018-12-11] MEDS: *HR* Heparin 5,000 UNIT/ML VIAL SQ SCH ×2 (05:31→17:30)
[2018-12-11 05:32] LABS: Basophils # 0.1 K/mcL (0.0-0.2); Basophils % 0.6 %; Eosinophils # 0.5 K/mcL (0.0-0.6); Eosinophils % 4.6 %; Hematocrit 38.7 % (35.3-44.9); Hemoglobin 12.6 g/dL (11.5-15.4); Immature Granulocytes % 1.5 % (0-4); Lymphocytes # 1.8 K/mcL (0.6-4.6); Lymphocytes % 17.3 %; Mean Corpuscular HGB Conc 32.6 g/dL (31.6-35.5); Mean Corpuscular Hemoglobin 28.4 pg (28.0-33.3); Mean Corpuscular Volume 87.4 fL (83.0-100.0); Mean Platelet Volume 10.7 fL (9.4-12.4); Monocytes # 0.6 K/mcL (0.0-1.3); Neutrophils # 7.2 K/mcL (1.6-8.9); Platelet Count 344 K/mcL (140-400); Red Blood Count 4.43 M/mcL (3.82-4.97); Red Cell Distribution Width 14.3 % (11.5-14.5); White Blood Count 10.2 K/mcL (4.3-11.1)
[2018-12-11 06:07] LABS: BUN/Creatinine Ratio 14 (6-26); Blood Urea Nitrogen 10 mg/dL (8-23); Calcium 9.5 mg/dL (8.6-10.3); Carbon Dioxide 20 mEq/L (23-29); Chloride 106 mEq/L (98-107); Glucose 119 mg/dL (70-105); Osmolality,Calculated 294 (280-300); Potassium 2.8 mEq/L (3.5-5.1); Sodium 142 mEq/L (136-145); eGFR For African Americans > 60 (> 60); eGFR For Non-African Americans > 60 (> 60)
[2018-12-11] MEDS: OLANZapine 5 MG TAB.RAPDIS PO SCH ×2 (08:41→08:56)
[2018-12-11] MEDS: Insulin LISPRO 300 UNITS/3 ML VIAL SQ SCH ×4 (08:41→20:27)
[2018-12-11] MEDS: Diltiazem CD (24hr) 240 MG CAPSULE PO SCH ×2 (08:41→08:56)
[2018-12-11] MEDS: lamoTRIgine 100 MG TABLET PO SCH (20:33)
[2018-12-12 02:03] LABS: Basophils # 0.1 K/mcL (0.0-0.2); Basophils % 0.6 %; Eosinophils # 0.7 K/mcL (0.0-0.6); Hemoglobin 12.4 g/dL (11.5-15.4); Immature Granulocytes % 1.1 % (0-4); Lymphocytes # 2.4 K/mcL (0.6-4.6); Lymphocytes % 21.4 %; Mean Corpuscular HGB Conc 32.6 g/dL (31.6-35.5); Mean Corpuscular Hemoglobin 28.4 pg (28.0-33.3); Mean Platelet Volume 10.5 fL (9.4-12.4); Monocytes # 0.7 K/mcL (0.0-1.3); Monocytes % 5.9 %; Neutrophils # 7.2 K/mcL (1.6-8.9); Platelet Count 360 K/mcL (140-400); Red Blood Count 4.37 M/mcL (3.82-4.97); Red Cell Distribution Width 14.5 % (11.5-14.5)
[2018-12-12 02:12] LABS: Alanine Aminotransferase 11 Units/L (7-52); Albumin/Globulin Ratio 1.5 (1.1-2.2); Alkaline Phosphatase 72 Units/L (34-104); Aspartate Amino Transferase 13 Units/L (13-39); BUN/Creatinine Ratio 17 (6-26); Bilirubin,Total 0.4 mg/dL (0.3-1.0); Blood Urea Nitrogen 13 mg/dL (8-23); Calcium 9.5 mg/dL (8.6-10.3); Carbon Dioxide 21 mEq/L (23-29); Chloride 107 mEq/L (98-107); Globulin 2.6 g/dL (2.4-3.5); Glucose 102 mg/dL (70-105); Osmolality,Calculated 292 (280-300); Potassium 2.9 mEq/L (3.5-5.1); Sodium 141 mEq/L (136-145); Total Protein 6.6 g/dL (6.4-8.9); eGFR For African Americans > 60 (> 60); eGFR For Non-African Americans > 60 (> 60)
[2018-12-12] MEDS: *HR* Heparin 5,000 UNIT/ML VIAL SQ SCH ×2 (05:56→18:11)
[2018-12-12] MEDS: Insulin LISPRO 300 UNITS/3 ML VIAL SQ SCH ×4 (07:44→20:31)
[2018-12-12] MEDS: OLANZapine 5 MG TAB.RAPDIS PO SCH (13:10)
[2018-12-12] MEDS: amLODIPine 5 MG TABLET PO SCH (13:10)
[2018-12-12] MEDS: Diltiazem CD (24hr) 240 MG CAPSULE PO SCH (13:11)
[2018-12-12] MEDS ORDERED: FLU Vac QV 19-20 (6Month+)/PF 0.5 ML SYRINGE IM ONE (18:07)
[2018-12-12] MEDS: lamoTRIgine 100 MG TABLET PO SCH (20:33)
[2018-12-13] MEDS: *HR* Heparin 5,000 UNIT/ML VIAL SQ SCH ×2 (05:33→18:19)
[2018-12-13 07:21] LABS: Basophils # 0.1 K/mcL (0.0-0.2); Basophils % 0.5 %; Eosinophils # 0.6 K/mcL (0.0-0.6); Eosinophils % 6.7 %; Hematocrit 41.8 % (35.3-44.9); Hemoglobin 13.7 g/dL (11.5-15.4); Immature Granulocytes % 0.5 % (0-4); Lymphocytes # 2.5 K/mcL (0.6-4.6); Lymphocytes % 26.3 %; Mean Corpuscular HGB Conc 32.8 g/dL (31.6-35.5); Mean Corpuscular Hemoglobin 28.6 pg (28.0-33.3); Mean Corpuscular Volume 87.3 fL (83.0-100.0); Mean Platelet Volume 10.3 fL (9.4-12.4); Monocytes # 0.6 K/mcL (0.0-1.3); Monocytes % 6.6 %; Neutrophils # 5.6 K/mcL (1.6-8.9); Platelet Count 320 K/mcL (140-400); Red Blood Count 4.79 M/mcL (3.82-4.97); Red Cell Distribution Width 14.4 % (11.5-14.5); Segmented Neutrophils % 59.4 %; White Blood Count 9.4 K/mcL (4.3-11.1)
[2018-12-13 07:42] LABS: Alanine Aminotransferase 12 Units/L (7-52); Albumin/Globulin Ratio 1.4 (1.1-2.2); Alkaline Phosphatase 72 Units/L (34-104); Aspartate Amino Transferase 15 Units/L (13-39); BUN/Creatinine Ratio 21 (6-26); Bilirubin,Total 0.4 mg/dL (0.3-1.0); Blood Urea Nitrogen 16 mg/dL (8-23); Calcium 9.9 mg/dL (8.6-10.3); Carbon Dioxide 25 mEq/L (23-29); Chloride 103 mEq/L (98-107); Globulin 2.8 g/dL (2.4-3.5); Glucose 109 mg/dL (70-105); Osmolality,Calculated 290 (280-300); Sodium 139 mEq/L (136-145); Total Protein 6.8 g/dL (6.4-8.9); eGFR For African Americans > 60 (> 60); eGFR For Non-African Americans > 60 (> 60)
[2018-12-13] MEDS: Insulin LISPRO 300 UNITS/3 ML VIAL SQ SCH ×4 (10:33→21:05)
[2018-12-13] MEDS: Diltiazem CD (24hr) 240 MG CAPSULE PO SCH (10:41)
[2018-12-13] MEDS: amLODIPine 5 MG TABLET PO SCH (10:41)
[2018-12-13] MEDS: OLANZapine 5 MG TAB.RAPDIS PO SCH (10:41)
[2018-12-13] MEDS ORDERED: Potassium Chloride Elixir 20 MEQ/15 ML UDC PO ONE (11:36)
[2018-12-13] MEDS: lamoTRIgine 100 MG TABLET PO SCH (21:04)
[2018-12-14] MEDS: *HR* Heparin 5,000 UNIT/ML VIAL SQ SCH ×2 (05:26→16:56)
[2018-12-14 07:39] LABS: Alanine Aminotransferase 13 Units/L (7-52); Albumin 4.2 g/dL (3.5-5.7); Albumin/Globulin Ratio 1.6 (1.1-2.2); Alkaline Phosphatase 73 Units/L (34-104); Aspartate Amino Transferase 15 Units/L (13-39); BUN/Creatinine Ratio 22 (6-26); Bilirubin,Total 0.4 mg/dL (0.3-1.0); Blood Urea Nitrogen 20 mg/dL (8-23); Calcium 10.1 mg/dL (8.6-10.3); Carbon Dioxide 25 mEq/L (23-29); Chloride 102 mEq/L (98-107); Globulin 2.7 g/dL (2.4-3.5); Glucose 138 mg/dL (70-105); Osmolality,Calculated 295 (280-300); Potassium 3.4 mEq/L (3.5-5.1); Sodium 140 mEq/L (136-145); Total Protein 6.9 g/dL (6.4-8.9); eGFR For African Americans > 60 (> 60); eGFR For Non-African Americans > 60 (> 60)
[2018-12-14] MEDS: Insulin LISPRO 300 UNITS/3 ML VIAL SQ SCH ×4 (07:52→21:55)
[2018-12-14] MEDS: OLANZapine 5 MG TAB.RAPDIS PO SCH (09:02)
[2018-12-14] MEDS: amLODIPine 5 MG TABLET PO SCH (09:02)
[2018-12-14] MEDS: Diltiazem CD (24hr) 240 MG CAPSULE PO SCH (09:02)
[2018-12-14] MEDS: lamoTRIgine 100 MG TABLET PO SCH (21:58)
[2018-12-15] MEDS: *HR* Heparin 5,000 UNIT/ML VIAL SQ SCH ×2 (05:31→17:02)
[2018-12-15] MEDS: Insulin LISPRO 300 UNITS/3 ML VIAL SQ SCH ×4 (08:10→19:42)
[2018-12-15] MEDS: Diltiazem CD (24hr) 240 MG CAPSULE PO SCH (09:50)
[2018-12-15] MEDS: amLODIPine 5 MG TABLET PO SCH (09:50)
[2018-12-15] MEDS: OLANZapine 5 MG TAB.RAPDIS PO SCH (09:50)
[2018-12-15] MEDS: lamoTRIgine 100 MG TABLET PO SCH (19:43)
[2018-12-16] MEDS: *HR* Heparin 5,000 UNIT/ML VIAL SQ SCH ×2 (05:25→18:20)
[2018-12-16] MEDS: Insulin LISPRO 300 UNITS/3 ML VIAL SQ SCH ×4 (09:08→20:34)
[2018-12-16] MEDS: amLODIPine 5 MG TABLET PO SCH (09:09)
[2018-12-16] MEDS: Diltiazem CD (24hr) 240 MG CAPSULE PO SCH (09:09)
[2018-12-16] MEDS: OLANZapine 5 MG TAB.RAPDIS PO SCH (09:09)
[2018-12-16] MEDS: lamoTRIgine 100 MG TABLET PO SCH (20:12)
[2018-12-17] MEDS: *HR* Heparin 5,000 UNIT/ML VIAL SQ SCH (05:04)
[2018-12-17] MEDS: Diltiazem CD (24hr) 240 MG CAPSULE PO SCH (07:44)
[2018-12-17] MEDS: amLODIPine 5 MG TABLET PO SCH (07:44)
[2018-12-17] MEDS: OLANZapine 5 MG TAB.RAPDIS PO SCH (07:44)
[2018-12-17] MEDS: Insulin LISPRO 300 UNITS/3 ML VIAL SQ SCH ×2 (07:44→11:55)
[2018-12-17] MEDS ORDERED: Lithium Carbonate 300 MG CAPSULE PO SCH (09:00)
[2018-12-17 10:16] VITALS: BP 131/82
== END 2018-12-17 15:08 | DRG 917 ==
LOC: CDU 01:41 → EMEROOARM 01:41 → SUATTDRO 04:21 → CDU 05:06 → 3ANU 15:37 → SUATTDRO 12-12 05:14
PROVIDERS: ADMIT Internal Medicine; ATTEND Internal Medicine